=== PATIENT | female | born 1945 | race Caucasian/White ===

== ENCOUNTER 2016-05-28 02:30 | Emergency (ER) | payer MEDICARE, OTHER ==
[~2016-05-28] VITALS: Ht 167.6 cm; Wt 100.0 kg
[~2016-05-28 02:30] MED LIST: ASPI81TA82 PO; CLIN1CAP5 PO; DIOV320T PO; GLIP10TA6 PO; GLIP5 PO; HYDR-2768 PO; LACT12%T TOP; LEVO.15 PO; MUPI2%T TOP; NOVOLOGSS; NYST100024 TOP; TAMS0.4C4 PO; VITA100020 PO; ZOFR8TAB PO
[2016-05-28 02:33] VITALS: BP 230/102; PULSE 101; RESP 18; TEMP 97.8; O2SAT 97
[2016-05-28] MEDS ORDERED: FURO1TAB60 PO (03:40)
[2016-05-28] MEDS ORDERED: DIOV320T PO (03:40)
[2016-05-28] MEDS ORDERED: POTA-243 PO (03:40)
[2016-05-28] MEDS ORDERED: CLON0.1D T-DERMAL (03:40)
[2016-05-28] MEDS ORDERED: LEVO200T4 PO (03:40)
[2016-05-28] MEDS ORDERED: CLOT1CRE TOPICAL (03:40)
[2016-05-28] MEDS ORDERED: TERI14TA PO (03:40)
[2016-05-28] MEDS ORDERED: LEVEMIR SQ (03:40)
[2016-05-28] MEDS ORDERED: FLUC100T2 PO (03:40)
[2016-05-28] MEDS ORDERED: ASPI1TAB69 PO (03:40)
[2016-05-28] MEDS ORDERED: CEPH-460 PO (03:41)
[2016-05-28] MEDS ORDERED: DICL1GEL TOPICAL (03:41)
[2016-05-28] MEDS ORDERED: FLOR250C PO (03:41)
[2016-05-28] MEDS ORDERED: HUMALOG SQ (03:41)
--- NOTE | 2016-05-28 04:03 | PD ---
HPI Chief Complaint: Fall Time Seen by Provider: 03:04 Travel History International Travel<30 days: No Contact w/Intl Traveler<30days: No Traveled to known affect area: No History of Present Illness HPI The patient is a 71 year old female who presents to the [facility] emergency department with a history of reportedly falling while getting out of bed prior to arrival. The patient is a resident at her half-way. The patient was noted to be stuck between the air conditioner and her bed with her wheelchair on top of her. The patient uses a wheelchair for mobility due to a history of cerebrovascular accident affecting the right side. The patient denies any loss of consciousness. The patient denies having any numbness or tingling to her arms or legs. She denies having any new weakness in her arms or legs. The patient reports having low back pain, right elbow pain, right shoulder pain, and right-sided pelvic pain. The patient's blood pressure was noted to be elevated on arrival. According to the patient's medication record the patient is supposed to be on a clonidine patch. The patient was examined and a clonidine patch was able to be found on her person. The patient denies any recent fevers, cough, congestion, headache, neck pain, chest pain, shortness of breath, abdominal pain, vomiting, diarrhea, urinary symptoms, or other new neurologic symptoms. 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 Anemia: Yes High Cholesterol: Yes Chest Pain: Yes Cerebrovascular Accident: Yes (RIGHT SIDED) Diabetes: Yes Patient Takes Glucophage: No Hypertension: Yes Immunizations Current: Yes Thyroid Disease: Yes (HYPOTHYROIDISM) ?: Not Past Surgical History Narrative Surgical The patient's past surgical history is unremarkable. Social History Alcohol Use: No Tobacco Use: No Substance Use: No Allergies-Medications (Allergen,Severity, Reaction): Coded Allergies: No Known Allergies (Unverified , 01/12/16) Reported Meds & Prescriptions Reported Meds & Active Scripts Active Reported Humalog Inj (Insulin Human Lispro) 1,000 Unit/10 Ml Vial 2-12 Units SQ ACHS Max dose at bedtime:( )units; sugars < 70,(0)units; sugars 150-199,(2)units; sugars 200-249,(4)units; sugars 250-299,(7)units; sugars 300-349,(10)units; sugars more than 349,(12)units. Voltaren Topical (Diclofenac Topical) 1% Gel 1 Applic TOPICAL QID Keflex (Cephalexin) 500 Mg Cap 500 Mg PO Q12H Florastor (Saccharomyces Boulardii) 250 Mg Cap 250 Mg PO BID Clotrimazole Topical (Clotrimazole) 1% Cream 1 Applic TOPICAL DAILY Levothyroxine (Levothyroxine Sodium) 200 Mcg Tab 200 Mcg PO DAILY Levemir Inj (Insulin Detemir) 1,000 unit/ 10 ML Vial 35 Units SQ DAILY Do not mix with any other Insulin. Lasix (Furosemide) 40 Mg Tab 40 Mg PO DAILY Klor-Con 10 (Potassium Chloride) 10 Meq Tab 10 Meq PO DAILY Fluconazole 100 Mg Tab 100 Mg PO DAILY Diovan (Valsartan) 320 Mg Tab 320 Mg PO DAILY Clonidine 168 HR Patch (Clonidine HCl) 0.1 Mg/24 Hr Patch 1 Patch T-DERMAL Q7D Aubagio (Teriflunomide) 14 Mg Tab 14 Mg PO DAILY Aspirin 81 Mg Tabdr 81 Mg PO DAILY Review of Systems Except as stated in HPI: all other systems reviewed are Neg General / Constitutional: No: Fever Eyes: No: Visual changes HENT: No: Headaches, Neck Pain Cardiovascular: No: Chest Pain or Discomfort Respiratory: No: Shortness of Breath Gastrointestinal: No: Nausea, Vomiting, Diarrhea, Abdominal Pain Genitourinary: No: Dysuria Musculoskeletal: Positive: Myalgias, Arthralgias, Pain Skin: No Rash Neurologic: Positive: Focal Abnormalities (chronic right-sided weakness related to a prior stroke), No: Weakness, Change in Mentation, Slurred Speech, Sensory Disturbance Psychiatric: No: Depression Endocrine: No: Polydipsia Hematologic/Lymphatic: No: Easy Bruising Physical Exam Narrative General: The patient is a well-developed well-nourished female in no acute distress. Head and Neck exam: Head is normocephalic atraumatic. Eyes: EOMI, pupils are equal round and reactive to light. Nose: Midline septum with pink mucous membranes Mouth: Dentition unremarkable. Moist mucus membranes. Posterior oropharynx is not erythematous. No tonsillar hypertrophy. Uvula midline. Airway patent. Neck: No palpable lymphadenopathy. No nuchal rigidity. No thyromegaly. Cardiovascular: Regular rate and rhythm without murmurs, gallops, or rubs. Lungs: Clear to auscultation bilaterally. No wheezes, rhonchi, or rales. Abdomen: Soft, without tenderness to palpation in all 4 quadrants of the abdomen. No guarding, rebound, or rigidity. Normal bowel sounds are audible. Extremities: No clubbing, cyanosis, or edema. 2+ pulses in all 4 extremities. The patient reports tenderness on palpation of the anterior aspect of the left knee. The patient reports tenderness on palpation along the posterior aspect of the right elbow and proximal aspect of the right humerus. There is no palpable deformity , step-off or crepitus of her extremities. There is no ligament laxity noted. Back: No spinous process tenderness to palpation. No costovertebral angle tenderness to palpation. The patient reports tenderness on palpation along the left side of the low back along the SI joint and along the lumbar paraspinal muscles on the left side. There is no ecchymosis or erythema. Neurologic Exam: Cranial nerves 2-12 were intact on exam. Strength is 4/5 in the right upper and right lower extremity with a prior history of stroke affecting this area. No sensory deficits noted. Skin: The patient has a superficial appearing skin tear along the posterior aspect of the right upper elbow. Data Data Last Documented VS Vital Signs Date Time Temp Pulse Resp B/P Pulse Ox O2 Delivery O2 Flow Rate FiO2 05/28/16 02:33 97.8 101 18 230/102 97 Orders Elbow, Complete (4 Vws) (05/28/16 03:03) Ct Brain W/O Iv Contrast(Rout) (05/28/16 03:03) Ct Cerv Spine W/O Contrast (05/28/16 03:03) Chest, Single Ap (05/28/16 03:50) Pelvis, Ap Only (Routine) (05/28/16 03:50) Humerus (Min 2vws) (05/28/16 03:50) Knee, Complete (4vws) (05/28/16 03:50) Complete Blood Count With Diff (05/28/16 04:19) Basic Metabolic Panel (Bmp) (05/28/16 04:19) Prothrombin Time / Inr (Pt) (05/28/16 04:19) Act Partial Throm Time (Ptt) (05/28/16 04:19) Ct Lumb Spine W/O Contrast (05/28/16 ) Clonidine (Catapres) (05/28/16 04:30) Labs Laboratory Tests Test 05/28/16 04:20 White Blood Count 11.1 TH/MM3 Red Blood Count 5.49 MIL/MM3 Hemoglobin 13.1 GM/DL Hematocrit 40.6 % Mean Corpuscular Volume 73.9 FL Mean Corpuscular Hemoglobin 23.8 PG Mean Corpuscular Hemoglobin 32.2 % Concent Red Cell Distribution Width 16.1 % Platelet Count 171 TH/MM3 Mean Platelet Volume 8.8 FL Neutrophils (%) (Auto) 68.9 % Lymphocytes (%) (Auto) 20.0 % Monocytes (%) (Auto) 9.6 % Eosinophils (%) (Auto) 1.3 % Basophils (%) (Auto) 0.2 % Neutrophils # (Auto) 7.6 TH/MM3 Lymphocytes # (Auto) 2.2 TH/MM3 Monocytes # (Auto) 1.1 TH/MM3 Eosinophils # (Auto) 0.1 TH/MM3 Basophils # (Auto) 0.0 TH/MM3 CBC Comment AUTO DIFF Prothrombin Time 10.7 SEC Prothromb Time International 1.0 RATIO Ratio Activated Partial 23.8 SEC Thromboplast Time Sodium Level 139 MEQ/L Potassium Level 3.9 MEQ/L Chloride Level 102 MEQ/L Carbon Dioxide Level 31.4 MEQ/L Anion Gap 6 MEQ/L Blood Urea Nitrogen 15 MG/DL Creatinine 0.65 MG/DL Estimat Glomerular Filtration 90 ML/MIN Rate Random Glucose 277 MG/DL Calcium Level 9.0 MG/DL [facility] Medical Decision Making Medical Screen Exam Complete: Yes Emergency Medical Condition: Yes Medical Record Reviewed: Yes Interpretation(s) Last Impressions Pelvis X-Ray 05/28/16349 Signed Impressions: Service Date/Time: Saturday, May 28, 2016 04:42 - CONCLUSION: 1. No acute findings. Sandeep Amaro MD Knee X-Ray 05/28/16349 Signed Impressions: Service Date/Time: Saturday, May 28, 2016 04:43 - CONCLUSION: 1. Advanced osteoarthritis. No acute bony abnormality. Sandeep Amaro MD Humerus X-Ray 05/28/16349 Signed Impressions: Service Date/Time: Saturday, May 28, 2016 04:49 - CONCLUSION: Unremarkable examination of the right humerus. Sandeep Amaro MD Chest X-Ray 05/28/16 0350 Signed Impressions: Service Date/Time: Saturday, May 28, 2016 04:47 - CONCLUSION: 1. No active disease. Left shoulder joint replacement. Sandeep Amaro MD Head CT 05/28/16302 Signed Impressions: Service Date/Time: Saturday, May 28, 2016 03:24 - CONCLUSION: 1. No acute findings. White matter ischemic changes. Sandeep Amaro MD Elbow X-Ray 05/28/16302 Signed Impressions: Service Date/Time: Saturday, May 28, 2016 03:15 - CONCLUSION: 1. No acute findings. Sandeep Amaro MD Cervical Spine CT 05/28/16302 Signed Impressions: Service Date/Time: Saturday, May 28, 2016 03:24 - CONCLUSION: 1. No acute findings. Moderate to severe degenerative disc disease. Sandeep Amaro MD Lumbar Spine CT 05/28/16 0000 Signed Impressions: Service Date/Time: Saturday, May 28, 2016 04:31 - CONCLUSION: 1. No acute fracture identified. No spondylolisthesis. Mild superior endplate depression or Schmorl's node at L4 which appears chronic. Sandeep Amaro MD Laboratory Tests Test 05/28/16 04:20 White Blood Count 11.1 TH/MM3 (4.0-11.0) Red Blood Count 5.49 MIL/MM3 (4.00-5.30) Mean Corpuscular Volume 73.9 FL (80.0-100.0) Mean Corpuscular Hemoglobin 23.8 PG (27.0-34.0) Monocytes (%) (Auto) 9.6 % (0.0-8.0) Monocytes # (Auto) 1.1 TH/MM3 (0-0.9) Activated Partial 23.8 SEC Thromboplast Time (24.3-30.1) Random Glucose 277 MG/DL (74-106) Differential Diagnosis Intracranial trauma, versus cervical spine trauma, versus lumbar spine trauma, versus intrathoracic trauma, versus right humerus fracture, versus right elbow fracture, versus left knee fracture, versus contusions and abrasions Narrative Course During the course of the patients emergency department visit, the patients history, examination, and differential diagnosis were reviewed with the patient. The patient had IV access obtained and blood work sent for analysis. The patient had an incidental finding of an elevated blood pressure. The patient had no evidence of her clonidine patch being on that is written in her medication record from the half-way. The patient was given clonidine 0.2 mg by mouth 1. A chest x-ray, pelvic x-ray, right humerus, right elbow, left knee x-ray was ordered. CT scan of the head, neck, lumbar spine was ordered. The patients laboratory studies were reviewed and remarkable for a CBC that shows a white count 11.1, hemoglobin 13.1, platelets 171 with 9.6 monocytes, BMP is unremarkable except for a glucose of 277 Radiology studies were reviewed and remarkable for a CT scan of the brain that shows no acute abnormality, CT scan of the C-spine that shows degenerative changes, CT scan of the lumbar spine that shows some degenerative changes, no other acute abnormality. Chest x-ray and pelvic x-ray showed no acute abnormality. Humerus x-ray showed no acute abnormality. Left knee x-ray reveals osteoarthritic changes, no other acute abnormality. Elbow x-ray shows no acute bony abnormality. The patient's results were discussed with her and her family. The patient will be discharged back to her half-way. The patient is resting comfortably and feels better, is alert and in no distress. The patients results and examination findings were discussed with the patient and the patient's family. The repeat examination is unremarkable and benign. The history, exam, diagnostic testing, and current condition do not suggest any significant pathology to warrant further testing, continued ED treatment, admission, or surgical evaluation at this point. The vital signs have been stable. The patient does not have uncontrollable pain, intractable vomiting, or other significant symptoms. The patient's condition is stable and appropriate for discharge. The patient will pursue further outpatient evaluation with a primary care physician or other designated or consulting physician as indicated in the discharge instructions. The patient expressed understanding and was agreeable with this plan. Diagnosis Primary Impression: Fall Qualified Code: W19.XXXA - Fall, initial encounter Additional Impression: Skin tear of elbow without complication Qualified Code: S51.011A - Skin tear of elbow without complication, right, initial encounter Referrals: Primary Care Physician Patient Instructions: Contusion in Adults (ED), General Instructions, Skin Tear (ED) Additional Instructions: The patient is instructed regarding the importance of restarting the clonidine patch that she was previously on. Med/Other Pt SpecificInfo: No Change to Meds Disposition: 01 DISCHARGE HOME Condition: Stable Tamara Abreu MD May 28, 2016 04:03
--- NOTE | 2016-05-28 04:06 | RADRPT ---
EXAM DATE/TIME: 05/28/2016 03:24 [facility] COMPARISON: No previous studies available for comparison. INDICATIONS : Trauma, fall. Altered mental status. RADIATION DOSE: 56.35 CTDIvol (mGy) MEDICAL HISTORY : Multiple sclerosis. Hypertension. Diabetes mellitus type 2.Coronary artery disease. CVA. SURGICAL HISTORY : Coronary stent. ENCOUNTER: Initial ACUITY: 1 day PAIN SCALE: 0/10 LOCATION: cranial TECHNIQUE: Multiple contiguous axial images were obtained of the head. Using automated exposure control and adj ustment of the mA and/or kV according to patient size, radiation dose was kept as low as reasonably a chievable to obtain optimal diagnostic quality images. FINDINGS: No acute intracranial hemorrhage, mass or midline shift. No hydrocephalus. There is extensive white m atter low attenuation most characteristic of chronic ischemic changes with probable remote infarct de ep white matter on the left. No acute infarct identified. CONCLUSION: 1. No acute findings. White matter ischemic changes. Sandeep Amaro MD on May 28, 2016 at 4:03 Board Certified Radiologist. This report was verified electronically.
--- NOTE | 2016-05-28 04:14 | RADRPT ---
EXAM DATE/TIME: 05/28/2016 03:15 [facility] COMPARISON: No previous studies available for comparison. INDICATIONS : Possible right elbow injury. MEDICAL HISTORY : Diabetes mellitus type II. SURGICAL HISTORY : None. ENCOUNTER: Initial ACUITY: 1 day PAIN SCORE: 1/10 LOCATION: Right Elbow FINDINGS: Multiple view examination of the right elbow demonstrates no acute fracture or dislocation. Mild oste oarthritis at the elbow joint. CONCLUSION: 1. No acute findings. Sandeep Amaro MD on May 28, 2016 at 4:11 Board Certified Radiologist. This report was verified electronically.
--- NOTE | 2016-05-28 04:20 | RADRPT ---
EXAM DATE/TIME: 05/28/2016 03:24 [facility] COMPARISON: No previous studies available for comparison. INDICATIONS : Trauma, fall. RADIATION DOSE: 37.28 CTDIvol (mGy) MEDICAL HISTORY : Multple sclerosis. Hypertension. Diabetes mellitus type 2.CVA. Coronary artery disease. SURGICAL HISTORY : Coronary stent. ENCOUNTER: Initial ACUITY: 1 day PAIN SCALE: 1/10 LOCATION: Right neck TECHNIQUE: Volumetric scanning of the cervical spine was performed. Multiplanar reconstructions in the sagittal, coronal and oblique axial planes were performed. Using automated exposure control and adjustment o f the mA and/or kV according to patient size, radiation dose was kept as low as reasonably achievable to obtain optimal diagnostic quality images. FINDINGS: There is moderate to severe degenerative disc disease in lower cervical spine with mild AP canal sten osis at C5-6-7. No fracture or spondylolisthesis. No prevertebral soft tissue swelling. CONCLUSION: 1. No acute findings. Moderate to severe degenerative disc disease. Sandeep Amaro MD on May 28, 2016 at 4:14 Board Certified Radiologist. This report was verified electronically.
[2016-05-28] MEDS ORDERED: cloNIDine HCL 0.2 MG TAB PO ONE (04:30)
[2016-05-28 04:32] LABS: AUTOMATED NEUTROPHIL # 7.6 TH/MM3 (1.8-7.7); BASOPHIL % 0.2 % (0.0-2.0); EOSINOPHIL # 0.1 TH/MM3 (0-0.4); EOSINOPHIL % 1.3 % (0.0-4.0); HEMATOCRIT 40.6 % (35.0-46.0); LYMPHOCYTE # 2.2 TH/MM3 (1.0-4.8); MEAN CELL VOLUME 73.9 FL (80.0-100.0); MEAN CORPUSCULAR HEMOGLOBIN 23.8 PG (27.0-34.0); MEAN CORPUSCULAR HGB CONC 32.2 % (32.0-36.0); MONO % 9.6 % (0.0-8.0); NEUT % 68.9 % (16.0-70.0); PLATELET COUNT 171 TH/MM3 (150-450); RED BLOOD COUNT 5.49 MIL/MM3 (4.00-5.30); RED CELL DISTRIBUTION WIDTH 16.1 % (11.6-17.2); WHITE BLOOD COUNT 11.1 TH/MM3 (4.0-11.0)
[2016-05-28 04:35] LABS: HEMO FLAGS AUTO DIFF
[2016-05-28 04:51] LABS: APTT (PATIENT) 23.8 SEC (24.3-30.1); PROTHROMBIN TIME - PATIENT 10.7 SEC (9.8-11.6)
[2016-05-28 04:53] LABS: BICARBONATE 31.4 MEQ/L (21.0-32.0)
[2016-05-28 04:54] LABS: POTASSIUM 3.9 MEQ/L (3.5-5.1)
--- NOTE | 2016-05-28 05:23 | RADRPT ---
EXAM DATE/TIME: 05/28/2016 04:31 [facility] COMPARISON: No previous studies available for comparison. INDICATIONS : Trauma, fall. RADIATION DOSE: 48.35 CTDIvol (mGy) MEDICAL HISTORY : Diabetes mellitus type 2. Hypertension. Multiple sclerosis.CVA. Coronary artery disease. SURGICAL HISTORY : Coronary stent. ENCOUNTER: Initial ACUITY: 1 day PAIN SCALE: 7/10 LOCATION: lumbar TECHNIQUE: Volumetric scanning of the lumbar spine was performed. Multiplanar reconstructions in the sagittal, coronal and oblique axial planes were performed. Using automated exposure control and adjustment of the mA and/or kV according to patient size, radiation dose was kept as low as reasonably achievable t o obtain optimal diagnostic quality images. FINDINGS: There is severe degenerative disc disease in the lumbar spine with moderate facet arthropathy. No acu te fracture. Mild superior endplate depression of L4 which appears chronic. There is a mild to modera te central canal stenosis at L3-4 and mild central canal stenosis at L4-5. CONCLUSION: 1. No acute fracture identified. No spondylolisthesis. Mild superior endplate depression or Schmorl's node at L4 which appears chronic. Sandeep Amaro MD on May 28, 2016 at 5:16 Board Certified Radiologist. This report was verified electronically.
--- NOTE | 2016-05-28 05:23 | RADRPT ---
EXAM DATE/TIME: 05/28/2016 04:47 [facility] COMPARISON: No previous studies available for comparison. INDICATIONS : Shortness of breath. MEDICAL HISTORY : Hypertension. Diabetes mellitus type II. Multiple sclerosis, CVA. SURGICAL HISTORY : Coronary artery stent. ENCOUNTER: Initial ACUITY: 1 day PAIN SCORE: 0/10 LOCATION: Bilateral chest FINDINGS: A single view of the chest demonstrates the lungs to be symmetrically aerated without evidence of mas s, infiltrate or effusion. The cardiomediastinal contours are unremarkable. Osseous structures are intact except left shoulder joint replacement. CONCLUSION: 1. No active disease. Left shoulder joint replacement. Sandeep Amaro MD on May 28, 2016 at 5:21 Board Certified Radiologist. This report was verified electronically.
--- NOTE | 2016-05-28 05:25 | RADRPT ---
EXAM DATE/TIME: 05/28/2016 04:42 [facility] COMPARISON: No previous studies available for comparison. INDICATIONS : Per daughter patient fell, hip pain. MEDICAL HISTORY : None. SURGICAL HISTORY : None. ENCOUNTER: Initial ACUITY: 1 day PAIN SCORE: 7/10 LOCATION: Bilateral Pelvis FINDINGS: A single frontal view of the pelvis demonstrates no evidence of fracture. The bony pelvic ring is in tact. Bony mineralization is normal. The soft tissues are intact. CONCLUSION: 1. No acute findings. Sandeep Amaro MD on May 28, 2016 at 5:22 Board Certified Radiologist. This report was verified electronically.
--- NOTE | 2016-05-28 05:26 | RADRPT ---
EXAM DATE/TIME: 05/28/2016 04:43 [facility] COMPARISON: No previous studies available for comparison. INDICATIONS : Per daughter, patient fell left knee pain. MEDICAL HISTORY : None. SURGICAL HISTORY : None. ENCOUNTER: Initial ACUITY: 1 day PAIN SCORE: 7/10 LOCATION: Left Knee FINDINGS: Four view examination of the left knee demonstrates no evidence of fracture or dislocation. Advanced osteoarthritis present at the left knee with mild medial subluxation. No significant joint effusion. Accessory ossicle superolateral patella CONCLUSION: 1. Advanced osteoarthritis. No acute bony abnormality. Sandeep Amaro MD on May 28, 2016 at 5:23 Board Certified Radiologist. This report was verified electronically.
--- NOTE | 2016-05-28 05:27 | RADRPT ---
EXAM DATE/TIME: 05/28/2016 04:49 [facility] COMPARISON: No previous studies available for comparison. INDICATIONS : Per daughter, patient fell tonight right arm pain. MEDICAL HISTORY : None. SURGICAL HISTORY : None. ENCOUNTER: Initial ACUITY: 1 day PAIN SCORE: 7/10 LOCATION: Right Humerus FINDINGS: Two view examination of the right humerus demonstrates no evidence of fracture or dislocation. Bony mineralization is normal. The soft tissue structures are intact. CONCLUSION: Unremarkable examination of the right humerus. Sandeep Amaro MD on May 28, 2016 at 5:25 Board Certified Radiologist. This report was verified electronically.
[2016-05-28 05:45] LABS: SCAN/DIFF AUTO DIFF CONFIRMED
[2016-05-28 05:48] VITALS: BP 229/129
[2016-05-28 06:30] VITALS: BP 164/72; PULSE 90; RESP 18; O2SAT 99
[2016-05-28 06:58] VITALS: BP 153/66; PULSE 95; RESP 18; O2SAT 96
[2016-05-28 09:17] VITALS: BP 126/75; TEMP 98.3
== END 2016-05-28 09:00 | disposition home or self-care (01) ==
LOC: NEPE 02:30
DX: S51.011A Laceration without foreign body of right elbow, initial encounter (principal); M25.521 Pain in right elbow; M25.511 Pain in right shoulder; R53.1 Weakness; I10 Essential (primary) hypertension; E78.00 Pure hypercholesterolemia, unspecified; E11.9 Type 2 diabetes mellitus without complications; W06.XXXA Fall from bed, initial encounter; Y92.122 Bedroom in nursing home as the place of occurrence of the external cause; Z91.81 History of falling
CPT/HCPCS: 70450; 71010; 72125; 72131; 72170; 73060; 73080; 73564; 80048; 85025; 85610; 85730

== ENCOUNTER 2016-05-31 09:09 | Emergency (ER) | payer MEDICARE, OTHER ==
[~2016-05-31] VITALS: Ht 162.6 cm; Wt 100.0 kg
[~2016-05-31 09:09] MED LIST changes: +ASPI1TAB69 PO; -ASPI81TA82 PO; +CEPH-460 PO; -CLIN1CAP5 PO; +CLON0.1D T-DERMAL; +CLOT1CRE TOPICAL; +DICL1GEL TOPICAL; +FLOR250C PO; +FLUC100T2 PO; +FURO1TAB60 PO; -GLIP10TA6 PO; -GLIP5 PO; +HUMALOG SQ; -HYDR-2768 PO; -LACT12%T TOP; +LEVEMIR SQ; -LEVO.15 PO; +LEVO200T4 PO; -MUPI2%T TOP; -NOVOLOGSS; -NYST100024 TOP; +POTA-243 PO; -TAMS0.4C4 PO; +TERI14TA PO; -VITA100020 PO; -ZOFR8TAB PO
[2016-05-31 09:23] VITALS: BP 231/102; PULSE 97; RESP 20; TEMP 97.8; O2SAT 100
--- NOTE | 2016-05-31 09:30 | PD ---
HPI Chief Complaint: Patient refusing to take her meds Time Seen by Provider: 09:19 Travel History International Travel<30 days: No Contact w/Intl Traveler<30days: No History of Present Illness HPI Patient is a 71-year-old female with history of hypertension, diabetes, hypothyroid, history of CVA with residual right-sided weakness, presents to emergency room from [facility] for evaluation of altered mental status. As per [facility], patient refuses to take her medications this morning. Patient was sent to the emergency room for evaluation of possible altered mental status. As per [facility], patient did fall from her bed a few days ago, patient was seen in the emergency room on May 28, 2016 after this fall, she did have CAT scans of her head, neck, L-spine, x-rays of her pelvis, knee, humerus, chest, elbow at that time which were all benign. Patient denies any new falls since May 28, 05/08/16. Patient is alert and oriented 3, patient with no complaints while in the emergency room. Patient reports that she refused to take her medications this morning as she did not feel like it. Patient reports that she has the right to refuse her medications if she wants to and does not know why she was sent to the ER. Reports that if they are going to make her come to the ER for evaluation when she refuses her mediations, then she will "just take my medications." Patient denies si/hi. Patient with no c/o. PFSH Past Medical History Anemia: Yes High Cholesterol: Yes Chest Pain: Yes Cerebrovascular Accident: Yes (RIGHT SIDED) Diabetes: Yes Hypertension: Yes Immunizations Current: Yes Thyroid Disease: Yes (HYPOTHYROIDISM) Social History Alcohol Use: No Tobacco Use: No Substance Use: No Allergies-Medications (Allergen,Severity, Reaction): Coded Allergies: No Known Allergies (Unverified , 01/12/16) Reported Meds & Prescriptions Reported Meds & Active Scripts Active Reported Humalog Inj (Insulin Human Lispro) 1,000 Unit/10 Ml Vial 2-12 Units SQ ACHS Max dose at bedtime:( )units; sugars < 70,(0)units; sugars 150-199,(2)units; sugars 200-249,(4)units; sugars 250-299,(7)units; sugars 300-349,(10)units; sugars more than 349,(12)units. Voltaren Topical (Diclofenac Topical) 1% Gel 1 Applic TOPICAL QID Keflex (Cephalexin) 500 Mg Cap 500 Mg PO Q12H Florastor (Saccharomyces Boulardii) 250 Mg Cap 250 Mg PO BID Clotrimazole Topical (Clotrimazole) 1% Cream 1 Applic TOPICAL DAILY Levothyroxine (Levothyroxine Sodium) 200 Mcg Tab 200 Mcg PO DAILY Levemir Inj (Insulin Detemir) 1,000 unit/ 10 ML Vial 35 Units SQ DAILY Do not mix with any other Insulin. Lasix (Furosemide) 40 Mg Tab 40 Mg PO DAILY Klor-Con 10 (Potassium Chloride) 10 Meq Tab 10 Meq PO DAILY Fluconazole 100 Mg Tab 100 Mg PO DAILY Diovan (Valsartan) 320 Mg Tab 320 Mg PO DAILY Clonidine 168 HR Patch (Clonidine HCl) 0.1 Mg/24 Hr Patch 1 Patch T-DERMAL Q7D Aubagio (Teriflunomide) 14 Mg Tab 14 Mg PO DAILY Aspirin 81 Mg Tabdr 81 Mg PO DAILY Review of Systems General / Constitutional: No: Fever Eyes: No: Visual changes HENT: No: Headaches Cardiovascular: No: Chest Pain or Discomfort Respiratory: No: Shortness of Breath Gastrointestinal: No: Abdominal Pain Genitourinary: No: Dysuria Musculoskeletal: No: Pain Skin: No Rash Neurologic: No: Weakness Psychiatric: No: Depression Endocrine: No: Polydipsia Hematologic/Lymphatic: No: Easy Bruising Physical Exam Narrative GENERAL: NAD, Alert and oriented x 3 SKIN: Warm and dry. HEAD: Atraumatic. Normocephalic. EYES: Pupils equal and round. No scleral icterus. No injection or drainage. ENT: No nasal bleeding or discharge. Mucous membranes pink and moist. NECK: Trachea midline. No JVD. CARDIOVASCULAR: Regular rate and rhythm. No murmur appreciated. RESPIRATORY: No accessory muscle use. Clear to auscultation. Breath sounds equal bilaterally. GASTROINTESTINAL: Abdomen soft, non-tender, nondistended. Hepatic and splenic margins not palpable. MUSCULOSKELETAL: No obvious deformities. No clubbing. No cyanosis. No edema. NEUROLOGICAL: Awake and alert. Patient with right sided weakness which is at baseline from her from prior CVA PSYCHIATRIC: Appropriate mood and affect; insight and judgment normal. Denies suicidal or homicidal ideations. Data Data Last Documented VS Vital Signs Date Time Temp Pulse Resp B/P Pulse Ox O2 Delivery O2 Flow Rate FiO2 05/31/16 09:23 97.8 97 20 231/102 100 Orders Basic Metabolic Panel (Bmp) (05/31/16 09:22) Complete Blood Count With Diff (05/31/16 09:22) Urinalysis - C+S If Indicated (05/31/16 09:22) Bedside Glucose ZELDA.AC&HS (05/31/16 09:22) Levothyroxine (Synthroid) (05/31/16 10:30) Furosemide (Lasix) (05/31/16 10:30) Potassium Chloride (Kcl) (05/31/16 10:30) Valsartan (Diovan) (05/31/16 10:30) Aspirin Chew (Aspirin Chew) (05/31/16 10:30) Urine Culture (05/31/16 09:50) Insulin Human Regular Inj (Novolin R Inj (05/31/16 11:45) Labs Laboratory Tests Test 05/31/16 05/31/16 05/31/16 09:50 10:00 11:55 Urine Color YELLOW Urine Turbidity CLEAR Urine pH 5.5 Urine Specific [place] 1.024 Urine Protein TRACE mg/dL Urine Glucose (UA) 1000 mg/dL Urine Ketones TRACE mg/dL Urine Occult Blood NEG Urine Nitrite NEG Urine Bilirubin NEG Urine Urobilinogen LESS THAN 2.0 MG/DL Urine Leukocyte Esterase NEG Urine RBC 1 /hpf Urine WBC 1 /hpf Urine Squamous Epithelial 2 /hpf Cells Urine Bacteria RARE /hpf Urine Hyaline Casts 1 /lpf Urine Mucus FEW /lpf Microscopic Urinalysis Comment CATH-CULTURE IND White Blood Count 8.3 TH/MM3 Red Blood Count 5.58 MIL/MM3 Hemoglobin 13.9 GM/DL Hematocrit 41.3 % Mean Corpuscular Volume 73.9 FL Mean Corpuscular Hemoglobin 24.8 PG Mean Corpuscular Hemoglobin 33.6 % Concent Red Cell Distribution Width 16.4 % Platelet Count 165 TH/MM3 Mean Platelet Volume 9.3 FL Neutrophils (%) (Auto) 68.9 % Lymphocytes (%) (Auto) 21.3 % Monocytes (%) (Auto) 7.8 % Eosinophils (%) (Auto) 1.5 % Basophils (%) (Auto) 0.5 % Neutrophils # (Auto) 5.7 TH/MM3 Lymphocytes # (Auto) 1.8 TH/MM3 Monocytes # (Auto) 0.7 TH/MM3 Eosinophils # (Auto) 0.1 TH/MM3 Basophils # (Auto) 0.0 TH/MM3 CBC Comment AUTO DIFF Differential Comment AUTO DIFF CONFIRMED Sodium Level 141 MEQ/L Potassium Level 4.0 MEQ/L Chloride Level 101 MEQ/L Carbon Dioxide Level 30.2 MEQ/L Anion Gap 10 MEQ/L Blood Urea Nitrogen 19 MG/DL Creatinine 0.61 MG/DL Estimat Glomerular Filtration 97 ML/MIN Rate Random Glucose 242 MG/DL Calcium Level 9.0 MG/DL MDM Medical Decision Making Medical Screen Exam Complete: Yes Emergency Medical Condition: Yes Interpretation(s) Vital Signs Date Time Temp Pulse Resp B/P Pulse Ox O2 Delivery O2 Flow Rate FiO2 05/31/16 09:23 97.8 97 20 231/102 100 Differential Diagnosis Medication noncompliance, hyperglycemia, hypertension Narrative Course Patient is a 71-year-old female with history of hypertension, diabetes, CVA with right-sided deficits at baseline, presents to emergency room from [facility] for evaluation of altered mental status. As per patient , she is alert and oriented 3, reports that she refuses to take her medications this morning as she did not feel like taking her medications. Patient reports that sometimes the nurses at the [facility] "give her problems," so she "gives them problems right back." Patient was sent to the emergency room for evaluation for possible altered mental status. Patient reports that she knew that she was going to be sent to the emergency room for evaluation for not taking her medications, she would've just taken her medications. Patient reports that she feels that it is her right not to take her medications if she does not want to. Patient denies suicidal or homicidal ideations. Patient with no complaints at this time. Patient now agreeable to taking her medications. Plan to obtain basic labs, will administer a.m. medications. Patient with no complaints in the emergency room, patient refusing to let me obtain a blood pressure at this time. I did review case with and pain at [facility]. She is aware of patient's blood pressure and patient's noncompliant with medications. Patient will be discharged home with instructions to take her medications. Patient's daughter at bedside, understands patient noncompliance of medications. She will try to encourage patient to take her medications. Diagnosis Primary Impression: Noncompliance with medications Additional Impression: Hyperglycemia Patient Instructions: General Instructions Additional Instructions: Please take all medications as prescribed Return to the emergency room as needed Disposition: 01 DISCHARGE HOME Condition: Stable Aura Stanford DO May 31, 2016 09:30
[2016-05-31 10:16] LABS: AUTOMATED NEUTROPHIL # 5.7 TH/MM3 (1.8-7.7); BASOPHIL % 0.5 % (0.0-2.0); EOSINOPHIL # 0.1 TH/MM3 (0-0.4); EOSINOPHIL % 1.5 % (0.0-4.0); HEMATOCRIT 41.3 % (35.0-46.0); LYMPH % 21.3 % (9.0-44.0); LYMPHOCYTE # 1.8 TH/MM3 (1.0-4.8); MEAN CELL VOLUME 73.9 FL (80.0-100.0); MEAN CORPUSCULAR HEMOGLOBIN 24.8 PG (27.0-34.0); MEAN CORPUSCULAR HGB CONC 33.6 % (32.0-36.0); MONO % 7.8 % (0.0-8.0); NEUT % 68.9 % (16.0-70.0); PLATELET COUNT 165 TH/MM3 (150-450); RED BLOOD COUNT 5.58 MIL/MM3 (4.00-5.30); RED CELL DISTRIBUTION WIDTH 16.4 % (11.6-17.2); WHITE BLOOD COUNT 8.3 TH/MM3 (4.0-11.0)
[2016-05-31 10:20] LABS: HEMO FLAGS AUTO DIFF
[2016-05-31 10:28] LABS: BACTERIA, URINE RARE /hpf; BLOOD, URINE NEG (NEG); COMMENT (UR) CATH-CULTURE IND; CULTURE IF INDICATED CATH CULTURE IND; GLUCOSE,URINE 1000 mg/dL (NEG); HYALINE CAST, URINE 1 /lpf (RARE); KETONE, URINE TRACE mg/dL (NEG); MUCUS URINE FEW /lpf (OCC); NITRITE,URINE NEG (NEG); PH, URINE 5.5 (5.0-8.5); SQUAMOUS EPITHELIAL CELL URINE 2 /hpf (0-5); URINE COLOR YELLOW (YELLW/STRAW)
[2016-05-31] MEDS ORDERED: ASPIRIN 81 MG CHEW TAB CHEW ONE (10:30)
[2016-05-31] MEDS ORDERED: FUROSEMIDE 40 MG TAB PO ONE (10:30)
[2016-05-31] MEDS ORDERED: POTASSIUM CHLORIDE 10 MEQ CONTROLLED RELEASE TAB PO ONE (10:30)
[2016-05-31] MEDS ORDERED: VALSARTAN 160 MG TAB PO ONE (10:30)
[2016-05-31] MEDS ORDERED: LEVOTHYROXINE SODIUM 200 MCG TAB PO ONE (10:30)
[2016-05-31 10:58] LABS: SCAN/DIFF AUTO DIFF CONFIRMED
[2016-05-31] MEDS ORDERED: INSULIN HUMAN REGULAR 1,000 UNITS/10 ML VIAL SQ ONE (11:45)
[2016-05-31 12:51] LABS: BICARBONATE 30.2 MEQ/L (21.0-32.0)
== END 2016-06-01 01:07 | disposition home or self-care (01) ==
LOC: NEPC 09:09 → NETRI 06-01 01:07
DX: Z91.14 Patient's other noncompliance with medication regimen (principal); E11.65 Type 2 diabetes mellitus with hyperglycemia; E78.00 Pure hypercholesterolemia, unspecified; I10 Essential (primary) hypertension; D64.9 Anemia, unspecified; E03.9 Hypothyroidism, unspecified
CPT/HCPCS: 80048; 81001; 85025; 87086; 96372; 99285; J1815

== ENCOUNTER 2016-10-10 11:09 | Inpatient (IN) | payer MEDICARE, BC, OTHER ==
[~2016-10-10] VITALS: Ht 167.6 cm; Wt 71.2 kg
[2016-10-10 11:23] VITALS: BP 179/94; PULSE 99; RESP 20; TEMP 98.7; O2SAT 97
--- NOTE | 2016-10-10 12:31 | PD ---
HPI Chief Complaint: Altered Mental Status Time Seen by Provider: 12:30 (Stephanie Sadler) Travel History International Travel<30 days: No Contact w/Intl Traveler<30days: No Traveled to known affect area: No (Stephanie Sadler) History of Present Illness HPI 71-year-old female with history of MS, CAD, hypertension, diabetes, CVA with right sided deficit presents to the emergency department from [facility] for evaluation of altered mental status. Per Eduardo at the facility, patient has been obtunded all morning. The staff states she did not even wake up after she was given a shower. They contacted the daughter and [facility] and sent the patient here for evaluation. Patient is arousable. A poor historian. Reports "pain all over." The daughter states she is much different than her typical self. Dating she appears more tired and ill. Patient does have indwelling Aguilar catheter with minimal output. Nothing else to report at this time. 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, (heel) 10/13/16 Reported Meds & Prescriptions Reported Meds & Active Scripts Active Reported Ondansetron Inj (Ondansetron HCl) 4 Mg/2 Ml Inj 8 Mg IM DAILY PRN Glucose Gel (Dextrose) 40 % Gel 1 Tube PO ONCE PRN Glucagon Emergency Inj Kit (Glucagon (Rdna) Inj Kit) 1 Mg Kit 1 Mg IM ONCE PRN Duoneb (Ipratropium-Albuterol Neb) 0.5-2.5 Mg/3 Ml Neb 3 Ml NEB Q6HR PRN Ativan (Lorazepam) 0.5 Mg Tab 0.5 Mg PO Q8H PRN [Abh Gel] 1 Applic T-DERMAL Q4HR PRN Rotate site with each application Nystatin-Triamcinolone 100,000-0.1 Unit/Gm Cream 1 Applic TOPICAL TID Apply to rash on neck until resolved Humalog Inj (Insulin Human Lispro) 1,000 Unit/10 Ml Vial 4 Units SQ BID Twice a day before breakfast and dinner Vitamin D3 (Cholecalciferol) 50,000 Unit Cap 50,000 Units PO Q7D Remeron (Mirtazapine) 15 Mg Tab 15 Mg PO DAILY Metoprolol Tartrate 50 Mg Tab 50 Mg PO DAILY Levemir Flextouch Pen Inj (Insulin Detemir) 300 unit/3 ML Pen 50 Units SQ DAILY Levothyroxine (Levothyroxine Sodium) 175 Mcg Tab 175 Mcg PO DAILY Levemir Flextouch Pen Inj (Insulin Detemir) 300 unit/3 ML Pen 20 Units SQ HS Aspirin Adult Low Strength (Aspirin) 81 Mg Tabdr 81 Mg PO DAILY Humalog Inj (Insulin Human Lispro) 1,000 Unit/10 Ml Vial 6 Units SQ DAILY Lasix (Furosemide) 40 Mg Tab 40 Mg PO DAILY Klor-Con 10 (Potassium Chloride) 10 Meq Tab 10 Meq PO DAILY Diovan (Valsartan) 320 Mg Tab 320 Mg PO DAILY Clonidine 168 HR Patch (Clonidine HCl) 0.1 Mg/24 Hr Patch 1 Patch T-DERMAL Q7D Aubagio (Teriflunomide) 14 Mg Tab 14 Mg PO DAILY (Nena Dumont MD) Review of Systems Except as stated in HPI: all other systems reviewed are Neg (Stephanie Sadler ) Physical Exam Narrative GENERAL: Chronically ill elderly female patient, lying on the bed, lethargic, arousable SKIN: Focused skin assessment warm/dry. Erythema and crusting around the chin extending to the left neck. Patient's entire buttock is excoriated with a stage II pressure ulcer of the sacrum measuring 3 cm in diameter. HEAD: Atraumatic. Normocephalic. EYES: Pupils equal and round. No scleral icterus. No injection or drainage. ENT: No nasal bleeding or discharge. Mucous membranes pink and moist. NECK: Trachea midline. No JVD. CARDIOVASCULAR: Elevated rate and rhythm. 2/6 murmur appreciated. RESPIRATORY: No accessory muscle use. Diminished to auscultation. Breath sounds equal bilaterally. GASTROINTESTINAL: Abdomen soft, non-tender, nondistended. Hepatic and splenic margins not palpable. MUSCULOSKELETAL: No obvious deformities. No clubbing. No cyanosis. No edema. NEUROLOGICAL: Lethargic to awake. Unable to assess cranial nerves. Right sided rigidity. (Stephanie Sadler) Data Data Orders Electrocardiogram (10/10/16 12:28) Complete Blood Count With Diff (10/10/16 12:28) Comprehensive Metabolic Panel (10/10/16 12:28) Prothrombin Time / Inr (Pt) (10/10/16 12:28) Act Partial Throm Time (Ptt) (10/10/16 12:28) Lactic Acid Sepsis Protocol (10/10/16 12:28) Ckmb (Isoenzyme) Profile (10/10/16:) Troponin I (10/10/16:) Urinalysis - C+S If Indicated (10/10/16 12:28) Blood Culture (10/10/16 12:28) Chest, Single Ap (10/10/16 12:28) Blood Glucose (10/10/16 12:28) Ecg Monitoring (10/10/16 12:28) Iv Access Insert/Monitor (10/10/16 12:28) Oximetry (10/10/16 12:28) Oxygen Administration (10/10/16 12:28) Ct Brain W/O Iv Contrast(Rout) (10/10/16 12:28) CKMB (10/10/16 12:35) CKMB% (10/10/16 12:35) Cefepime Inj (Maxipime Inj) (10/10/16 14:25) Vancomycin Inj (Vancomycin Inj) (10/10/16 14:25) Sodium Chlor 0.9% 1000 Ml Inj (Ns 1000 M (10/10/16 14:30) Urine Culture (10/10/16 13:45) Place In Observation (10/10/16 ) Vital Signs (Adult) Q4H (10/10/16 15:32) Diet 1800 Ada Cons Carb (10/10/16 Dinner) Sodium Chlor 0.45% 1000 Ml Inj (1/2 Ns 1 (10/10/16 15:32) Sodium Chloride 0.9% Flush (Ns Flush) (10/10/16 15:45) Sodium Chloride 0.9% Flush (Ns Flush) (10/10/16 21:00) Acetaminophen (Tylenol) (10/10/16 15:45) Ondansetron Inj (Zofran Inj) (10/10/16 15:45) Basic Metabolic Panel (Bmp) (10/11/16 06:00) Complete Blood Count With Diff (10/11/16 06:00) Heparin Inj (Heparin Inj) (10/10/16 17:00) Naloxone Inj (Narcan Inj) (10/10/16 15:45) Docusate Sodium-Senna (Luz Marina-Colace) (10/10/16 21:00) Magnesium Hydroxide Liq (Milk Of Magnesi (10/10/16 15:45) Sennosides (Senokot) (10/10/16 15:45) Bisacodyl Supp (Dulcolax Supp) (10/10/16 15:45) Lactulose Liq (Lactulose Liq) (10/10/16 15:45) Admit Order (Ed Use Only) (10/10/16 15:34) Ceftriaxone Inj (Rocephin Inj) (10/11/16 09:00) (Nena Dumont MD) MDM Medical Decision Making Medical Screen Exam Complete: Yes Emergency Medical Condition: Yes Medical Record Reviewed: Yes Differential Diagnosis Sepsis versus electrolyte abnormality versus MS exacerbation versus intracranial etiology Narrative Course 71 Year-old female presents to the emergency department for evaluation of altered mental status. Patient appears chronically ill. She is mildly tachycardic. Blood pressure is elevated but stable. Patient was given IV fluids, cefepime and vancomycin CBC is without acute concern. CMP is with total CK 603, BUN 19. Troponin is less than 0.02. Lactic acid is 1.4. Urinalysis is cloudy, 300 proteinuria, moderate focal blood, large leukocyte Estrace, innumerable RBC, innumerable WBC, many WBC clumps, many bacteria, culture is indicated. Last Impressions Head CT 10/10/161227 Signed Impressions: Service Date/Time: Monday, October 10, 2016 13:34 - CONCLUSION: Chronic and small vessel ischemic changes without any evidence for acute hemorrhage or mass effect. Jarrett Balderrama MD Chest X-Ray 10/10/163 Signed Impressions: Service Date/Time: Monday, October 10, 2016 13:13 - CONCLUSION: No acute disease. Georges Valdes Jr., MD I discussed the patient with Dr. Brown who agrees to admit the patient observation for further evaluation, IV fluids, and antibiotic. Plan is discussed with the patient's daughter who is in agreement with this plan of care. (Stephanie Sadler) Narrative Course Heel Scorer signing for document in draft. (Nena Dumont MD) Sepsis Criteria SIRS Criteria (2 or more): Heart rate over 90 (Stephanie Sadler) Diagnosis Primary Impression: Altered mental status Qualified Code: R41.82 - Altered mental status, unspecified altered mental status type Additional Impressions: UTI (urinary tract infection) Qualified Code: T83.511A - Urinary tract infection associated with indwelling urethral catheter, initial encounter Indwelling catheter present on admission Condition: Stable Stephanie Sadler Oct 10, 2016 12:30 Nena Dumont MD Oct 19, 2016 17:32 Ratio Activated Partial 24.5 SEC Thromboplast Time Sodium Level 142 MEQ/L Potassium Level 3.9 MEQ/L Chloride Level 106 MEQ/L Carbon Dioxide Level 26.8 MEQ/L Anion Gap 9 MEQ/L Blood Urea Nitrogen 19 MG/DL Creatinine 0.69 MG/DL Estimat Glomerular Filtration 84 ML/MIN Rate Random Glucose 180 MG/DL Lactic Acid Level 1.4 mmol/L Calcium Level 8.7 MG/DL Total Bilirubin 1.1 MG/DL Aspartate Amino Transf 36 U/L (AST/SGOT) Alanine Aminotransferase 19 U/L (ALT/SGPT) Alkaline Phosphatase 113 U/L Total Creatine Kinase 603 U/L Creatine Kinase MB 2.9 NG/ML Creatine Kinase MB % 0.5 % Troponin I LESS THAN 0.02 NG/ML Total Protein 6.7 GM/DL Albumin 2.7 GM/DL Urine Color YELLOW Urine Turbidity CLOUDY Urine pH 6.5 Urine Specific [place] 1.022 Urine Protein 300 mg/dL Urine Glucose (UA) NEG mg/dL Urine Ketones NEG mg/dL Urine Occult Blood MOD Urine Nitrite NEG Urine Bilirubin NEG Urine Urobilinogen 2.0 MG/DL Urine Leukocyte Esterase LARGE Urine RBC /hpf Urine WBC /hpf Urine WBC Clumps MANY Urine Squamous Epithelial 4 /hpf Cells Urine Renal Epithelial Cells 2 /hpf Urine Bacteria MANY /hpf Microscopic Urinalysis Comment CATH-CULTURE IND MDM Medical Decision Making Medical Screen Exam Complete: Yes Emergency Medical Condition: Yes Medical Record Reviewed: Yes Differential Diagnosis Sepsis versus electrolyte abnormality versus MS exacerbation versus intracranial etiology Narrative Course 71 Year-old female presents to the emergency department for evaluation of altered mental status. Patient appears chronically ill. She is mildly tachycardic. Blood pressure is elevated but stable. Patient was given IV fluids, cefepime and vancomycin CBC is without acute concern. CMP is with total CK 603, BUN 19. Troponin is less than 0.02. Lactic acid is 1.4. Urinalysis is cloudy, 300 proteinuria, moderate focal blood, large leukocyte Estrace, innumerable RBC, innumerable WBC, many WBC clumps, many bacteria, culture is indicated. Last Impressions Head CT 10/10/168 Signed Impressions: Service Date/Time: Monday, October 10, 2016 13:34 - CONCLUSION: Chronic and small vessel ischemic changes without any evidence for acute hemorrhage or mass effect. Jrarett Balderrama MD Chest X-Ray 10/10/168 Signed Impressions: Service Date/Time: Saturday, October 10, 2016 13:13 - CONCLUSION: No acute disease. Georges Valdes Jr., MD I discussed the patient with Dr. Brown who agrees to admit the patient observation for further evaluation, IV fluids, and antibiotic. Plan is discussed with the patient's daughter who is in agreement with this plan of care. Sepsis Criteria SIRS Criteria (2 or more): Heart rate over 90 Diagnosis Primary Impression: Altered mental status Qualified Code: R41.82 - Altered mental status, unspecified altered mental status type Additional Impressions: UTI (urinary tract infection) Qualified Code: T83.511A - Urinary tract infection associated with indwelling urethral catheter, initial encounter Indwelling catheter present on admission Condition: Stable Stephanie Sadler JAY Oct 10, 2016 12:30
[2016-10-10 12:57] VITALS: O2SAT 98
[2016-10-10 13:11] LABS: AUTOMATED NEUTROPHIL # 7.1 TH/MM3 (1.8-7.7); BASOPHIL % 0.4 % (0.0-2.0); EOSINOPHIL # 0.3 TH/MM3 (0-0.4); EOSINOPHIL % 2.9 % (0.0-4.0); HEMATOCRIT 38.2 % (35.0-46.0); HEMO FLAGS DIFF FINAL; LYMPH % 11.5 % (9.0-44.0); LYMPHOCYTE # 1.1 TH/MM3 (1.0-4.8); MEAN CELL VOLUME 75.5 FL (80.0-100.0); MEAN CORPUSCULAR HEMOGLOBIN 25.3 PG (27.0-34.0); MEAN CORPUSCULAR HGB CONC 33.5 % (32.0-36.0); MONO % 9.4 % (0.0-8.0); NEUT % 75.8 % (16.0-70.0); PLATELET COUNT 163 TH/MM3 (150-450); RED BLOOD COUNT 5.06 MIL/MM3 (4.00-5.30); WHITE BLOOD COUNT 9.4 TH/MM3 (4.0-11.0)
[2016-10-10 13:18] LABS: APTT (PATIENT) 24.5 SEC (24.3-30.1); INTERNATIONAL NORMALIZED RATIO 1.1 RATIO; PROTHROMBIN TIME - PATIENT 11.8 SEC (9.8-11.6)
[2016-10-10 13:29] LABS: ALT (GPT) 19 U/L (10-53); ANION GAP 9 MEQ/L (5-15); AST (GOT) 36 U/L (15-37); BICARBONATE 26.8 MEQ/L (21.0-32.0); BLOOD UREA NITROGEN 19 MG/DL (7-18); CHLORIDE 106 MEQ/L (98-107); GLOMERULAR FILTRATION RATE 84 ML/MIN (>89); POTASSIUM 3.9 MEQ/L (3.5-5.1); SODIUM (NA) 142 MEQ/L (136-145)
[2016-10-10 13:32] LABS: ALKALINE PHOSPHATASE 113 U/L (45-117); CREATINE KINASE 603 U/L (26-192); TOTAL BILIRUBIN ADULT 1.1 MG/DL (0.2-1.0)
[2016-10-10 13:45] LABS: CKMB 2.9 NG/ML (0.5-3.6)
--- NOTE | 2016-10-10 13:49 | RADRPT ---
EXAM DATE/TIME: 10/10/2016 13:13 [facility] COMPARISON: CHEST SINGLE AP, May 28, 2016, 4:47. INDICATIONS : Altered mental status MEDICAL HISTORY : Chronic obstructive pulmonary disease. SURGICAL HISTORY : coronary artery stent. ENCOUNTER: Initial ACUITY: 1 day PAIN SCORE: Non-responsive. LOCATION: Bilateral chest FINDINGS: A single view of the chest demonstrates the lungs to be symmetrically aerated without evidence of mas s, infiltrate or effusion. The cardiomediastinal contours are unremarkable. Osseous structures are intact. Left humeral head prosthesis. CONCLUSION: No acute disease. Georges Valdes Jr., MD on October 10, 2016 at 13:46 Board Certified Radiologist. This report was verified electronically.
--- NOTE | 2016-10-10 13:53 | RADRPT ---
EXAM DATE/TIME: 10/10/2016 13:34 [facility] COMPARISON: CT BRAIN W/O CONTRAST, May 28, 2016, 3:24. INDICATIONS : Altered mental status. RADIATION DOSE: 32.86 CTDIvol (mGy) MEDICAL HISTORY : Hypothyroidism. Multiple sclerosis. Cardiovascular disease. Hypertension, Diabetes. SURGICAL HISTORY : None. ENCOUNTER: Initial ACUITY: 1 day PAIN SCALE: 0/10 LOCATION: cranial TECHNIQUE: Multiple contiguous axial images were obtained of the head. Using automated exposure control and adj ustment of the mA and/or kV according to patient size, radiation dose was kept as low as reasonably a chievable to obtain optimal diagnostic quality images. DICOM format image data is available electro nically for review and comparison. FINDINGS: There is no evidence for intracranial hemorrhage, mass effect, mass lesions, or edema. The visualize d bony structures appear intact. Moderate degree of brain atrophy is seen. Moderate periventricular white matter changes are seen nonspecific mostly consistent with chronic small vessel ischemic change s. There are no signs of acute infarction for technique. CONCLUSION: Chronic and small vessel ischemic changes without any evidence for acute hemorrhage or mass effect. Jarrett Balderrama MD on October 10, 2016 at 13:49 Board Certified Radiologist. This report was verified electronically.
[2016-10-10 13:57] VITALS: BP 147/65; PULSE 64; RESP 16; O2SAT 98
[2016-10-10] MEDS ORDERED: METO50TA PO (13:58)
[2016-10-10] MEDS ORDERED: CHOL1CAP34 PO (13:58)
[2016-10-10] MEDS ORDERED: REME15TA PO (13:58)
[2016-10-10] MEDS ORDERED: LEVO175T2 PO (13:58)
[2016-10-10] MEDS ORDERED: INSU1INJ5 SQ ×2 (13:58)
[2016-10-10] MEDS ORDERED: ASPI1TAB91 PO (13:58)
[2016-10-10] MEDS ORDERED: HUMALOG SQ (13:58)
[2016-10-10] MEDS ORDERED: NYSTCRE29 TOPICAL (14:14)
[2016-10-10] MEDS ORDERED: GLUC40GE PO (14:14)
[2016-10-10] MEDS ORDERED: LORA-392 PO (14:14)
[2016-10-10] MEDS ORDERED: ABH GEL T-DERMAL (14:14)
[2016-10-10] MEDS ORDERED: GLUC1KIT IM (14:14)
[2016-10-10] MEDS ORDERED: IPRASOL NEB (14:14)
[2016-10-10] MEDS ORDERED: ONDA4INJ2 IM (14:16)
[2016-10-10] MEDS ORDERED: CEFEPIME INJ 2,000 MG in SODIUM CHLORIDE 0.9% INJ 100 ML IV STA (14:25)
[2016-10-10] MEDS ORDERED: VANCOMYCIN INJ 1,000 MG in SODIUM CHLOR 0.9% 250 ML INJ 250 ML IV STA (14:25)
[2016-10-10 14:28] LABS: BACTERIA, URINE MANY /hpf; BLOOD, URINE MOD (NEG); GLUCOSE,URINE NEG (NEG); KETONE, URINE NEG (NEG); NITRITE,URINE NEG (NEG); PH, URINE 6.5 (5.0-8.5); RENAL EPITHELIAL CELLS 2 /hpf; SQUAMOUS EPITHELIAL CELL URINE 4 /hpf (0-5); URINE COLOR YELLOW (YELLW/STRAW)
[2016-10-10 14:29] LABS: COMMENT (UR) CATH-CULTURE IND; CULTURE IF INDICATED CATH CULTURE IND
[2016-10-10] MEDS ORDERED: SODIUM CHLOR 0.9% 1000 ML INJ 1,000 ML IV ONE (14:30)
[2016-10-10] MEDS: SODIUM CHLOR 0.45% 1000 ML INJ 1,000 ML IV SCH (15:32)
[2016-10-10] MEDS ORDERED: LACTULOSE SYRUP 20 GM/30 ML CUP PO PRN (15:45)
[2016-10-10] MEDS ORDERED: ONDANSETRON HCL 4 MG/2 ML VIAL IVP PRN (15:45)
[2016-10-10] MEDS ORDERED: ACETAMINOPHEN 325 MG TAB PO PRN (15:45)
[2016-10-10] MEDS ORDERED: NALOXONE HCL 0.4 MG/ML AMP IV PRN (15:45)
[2016-10-10] MEDS ORDERED: RESP: ALBUTEROL 2.5 MG/IPRATROPIUM 0.5 MG NEB (PRN) NEB (15:45)
[2016-10-10] MEDS ORDERED: SENNOSIDES 8.6 MG TAB PO PRN (15:45)
[2016-10-10] MEDS ORDERED: SODIUM CHLORIDE 0.9% FLUSH 10 ML FLUSH IV FLUSH PRN (15:45)
[2016-10-10] MEDS ORDERED: BISACODYL 10 MG SUPP RECTAL PRN (15:45)
[2016-10-10] MEDS ORDERED: NON-FORMULARY DRUG (Cholecalciferol (Vitamin D3) 50,000 UNITS) PO SCH (15:45)
[2016-10-10] MEDS ORDERED: GLUCAGON 1 MG IM PRN (15:45)
[2016-10-10] MEDS ORDERED: MAGNESIUM HYDROXIDE SUSP 30 ML CUP PO PRN (15:45)
--- NOTE | 2016-10-10 16:26 | EKG ---
Date Performed: 10/10/2016 Time Performed: 12:10:36 PTAGE: 71 years EKG: Sinus rhythm WITH SINUS ARRHYTHMIA NORMAL ECG NO PREVIOUS TRACING DOCTOR: Ziyad Hancock Interpretating Date/Time 10/10/2016 16:26:25
[2016-10-10] MEDS ORDERED: HALDOL TOPICAL PRN (16:30)
[2016-10-10] MEDS ORDERED: ABH TOPICAL PRN (16:30)
[2016-10-10] MEDS ORDERED: BENADRYL TOPICAL PRN (16:30)
[2016-10-10 16:52] VITALS: O2SAT 97
[2016-10-10 17:31] VITALS: BP 140/87; PULSE 98; RESP 19; TEMP 98.2; O2SAT 98
[2016-10-10] MEDS: HEPARIN SODIUM - SQ 10,000 UNITS/ML VIAL SQ SCH (18:53)
[2016-10-10] MEDS: NYSTATIN/TRIAMCINOLONE CREAM 15 GM TOPICAL SCH (18:54)
--- NOTE | 2016-10-10 19:15 | HP.UPD ---
H&P Update Note seen, examined by myself, Dr Brown, today 10/10/16 and the emergency department room C 36 Discussed with patient's daughter The patient herself is not responsive except for noxious stimuli 71-year-old female from [facility] Became unresponsive for the last day or so Has a chronic indwelling Aguilar catheter Bedridden Advanced multiple sclerosis Admitted with sepsis, sinus tachycardia, cellulitis of the neck, ulcer in the heel of the left foot, conjunctivitis, and possible urinary infection Recent ESBL urinary infection Poor prognosis Critical condition DNR Over 45 minutes been Discussed with emergency physician Discussed with mid level provider Full history and physical to follow The exam, history, and the medical decision-making described in the above note were completed with the assistance of the mid-level provider. I reviewed the findings presented. I attest that I had a csra-ea-sect encounter with the patient on the same day, and personally performed and documented my assessment and findings in the medical record Darryn Brown MD Oct 10, 2016 19:14
[2016-10-10] MEDS ORDERED: Vancomycin Consult Pharmacy 1 EA OTHER SCH (19:30)
[2016-10-10] MEDS ORDERED: VANCOMYCIN INJ 1,000 MG in SODIUM CHLOR 0.9% 250 ML INJ 250 ML IV ONE (20:00)
[2016-10-10 20:51] VITALS: BP 166/72; PULSE 96; RESP 20; TEMP 97.5; O2SAT 98
[2016-10-10] MEDS: SODIUM CHLORIDE 0.9% FLUSH 10 ML FLUSH IV FLUSH SCH (21:13)
[2016-10-10] MEDS: DOCUSATE SODIUM 50 MG/SENNA 8.6 MG TAB PO SCH (21:14)
[2016-10-10] MEDS: INSULIN DETEMIR 100 UNITS/ML VIAL SQ SCH (22:00)
[2016-10-10] MEDS ORDERED: GLUCAGON 1 MG/ML VIAL OTHER PRN (22:15)
--- NOTE | 2016-10-10 22:36 | EKG ---
Date Performed: 10/10/2016 Time Performed: 15:46:26 PTAGE: 71 years EKG: SINUS TACHYCARDIA ABNORMAL RHYTHM ECG NO PREVIOUS TRACING DOCTOR: Ziyad Hancock Interpretating Date/Time 10/10/2016 22:35:52
[2016-10-10] MEDS: DEXTROSE 50% IN WATER 50 ML VIAL(D50) IV PUSH PRN (23:57)
[2016-10-11] VITALS (7 sets, daily range): BP systolic 115–183; BP diastolic 58–90; PULSE 76–90; RESP 17–20; TEMP 98.1–99.3; O2SAT 92–98
[2016-10-11] MEDS: HEPARIN SODIUM - SQ 10,000 UNITS/ML VIAL SQ SCH ×2 (05:48→18:22)
[2016-10-11] MEDS: LEVOTHYROXINE SODIUM 100 MCG TAB PO SCH (05:48)
[2016-10-11] MEDS: LEVOTHYROXINE SODIUM 75 MCG TAB PO SCH (05:48)
[2016-10-11] MEDS ORDERED: DEXTROSE 50% IN WATER 50 ML SYRINGE ONE (05:56)
[2016-10-11] MEDS: INSULIN ASPART 1,000 UNITS/10 ML VIAL SQ SCH ×2 (06:04→16:00)
[2016-10-11] MEDS: DEXTROSE 50% IN WATER 50 ML VIAL(D50) IV PUSH PRN ×2 (06:12→06:21)
[2016-10-11] MEDS ORDERED: DEXTROSE 50% IN WATER 50 ML SYRINGE IV PUSH PRN (06:15)
[2016-10-11] MEDS: SODIUM CHLOR 0.45% 1000 ML INJ 1,000 ML IV SCH ×2 (07:19→18:23)
[2016-10-11 07:43] LABS: AUTOMATED NEUTROPHIL # 4.5 TH/MM3 (1.8-7.7); BASOPHIL % 0.6 % (0.0-2.0); EOSINOPHIL # 0.2 TH/MM3 (0-0.4); EOSINOPHIL % 3.6 % (0.0-4.0); HEMATOCRIT 33.3 % (35.0-46.0); HEMO FLAGS DIFF FINAL; LYMPH % 11.9 % (9.0-44.0); LYMPHOCYTE # 0.7 TH/MM3 (1.0-4.8); MEAN CELL VOLUME 75.4 FL (80.0-100.0); MEAN CORPUSCULAR HEMOGLOBIN 24.7 PG (27.0-34.0); MEAN CORPUSCULAR HGB CONC 32.8 % (32.0-36.0); MONO % 10.8 % (0.0-8.0); NEUT % 73.1 % (16.0-70.0); PLATELET COUNT 145 TH/MM3 (150-450); RED BLOOD COUNT 4.42 MIL/MM3 (4.00-5.30); WHITE BLOOD COUNT 6.2 TH/MM3 (4.0-11.0)
[2016-10-11 08:39] LABS: BICARBONATE 25.8 MEQ/L (21.0-32.0); POTASSIUM 3.8 MEQ/L (3.5-5.1)
[2016-10-11] MEDS: SODIUM CHLORIDE 0.9% FLUSH 10 ML FLUSH IV FLUSH SCH ×2 (08:59→21:40)
[2016-10-11] MEDS ORDERED: TERIFLUNOMIDE 14 MG PO SCH (09:00)
[2016-10-11] MEDS: INSULIN DETEMIR 100 UNITS/ML VIAL SQ SCH ×2 (09:00→19:54)
[2016-10-11] MEDS: NYSTATIN/TRIAMCINOLONE CREAM 15 GM TOPICAL SCH ×2 (09:00→21:39)
[2016-10-11] MEDS ORDERED: cefTRIAXone INJ 1,000 MG in SODIUM CHLORIDE 0.9% INJ 100 ML IV SCH (09:00)
[2016-10-11] MEDS: CEFEPIME INJ 1,000 MG in SODIUM CHLORIDE 0.9% INJ 100 ML IV SCH ×2 (09:13→21:40)
[2016-10-11] MEDS ORDERED: VANCOMYCIN 1,000 MG/NS 250 ML IV SCH ×2 (11:00)
[2016-10-11] MEDS: POTASSIUM CHLORIDE 10 MEQ CONTROLLED RELEASE TAB PO SCH (11:55)
[2016-10-11] MEDS: ASPIRIN EC 81 MG TABEC PO SCH (11:55)
[2016-10-11] MEDS: VALSARTAN 160 MG TAB PO SCH (11:56)
[2016-10-11] MEDS: METOPROLOL TARTRATE 50 MG TAB PO SCH (11:56)
[2016-10-11] MEDS: MIRTAZAPINE 15 MG TAB PO SCH (11:56)
[2016-10-11] MEDS: DOCUSATE SODIUM 50 MG/SENNA 8.6 MG TAB PO SCH ×2 (11:57→21:39)
[2016-10-11] MEDS: VANCOMYCIN INJ 1,500 MG in SODIUM CHLORID 0.9% 500 ML INJ 500 ML IV SCH ×2 (12:23→22:33)
[2016-10-11] MEDS: CIPROFLOXACIN 0.3% OPTH SOLN 2.5 ML BTL EACH EYE SCH ×3 (15:11→21:39)
--- NOTE | 2016-10-11 17:20 | PD.CONS ---
History of Present Illness Service Podiatry Consult Requested By Reason for Consult R heel ulcer, infected Primary Care Physician Alvaro Holt M.D. Diagnoses: History of Present Illness Patient uncertain how long wound has been present to R posterior heel. She says the [facility] was stating that the wound just showed up yesterday. It is red with necrotic center and very painful. Past Family Social History Allergies: Coded Allergies: No Known Allergies (Unverified , 01/12/16) Past Medical History Anemia High cholesterol CVA, R sided HTN Hypothyroidism Past Surgical History unknown Active Ordered Medications Current Medications Medications (Trade) Dose Ordered Sig/Tasia Route Start Time Stop Time Status Last Admin (04/02 NS 1000 ml Inj) 1,000 ml @ 75 mls/hr [id number] IV 10/10/16 15:32 10/11/16 07:19 (NS Flush) 2 ml UNSCH PRN IV FLUSH 10/10/16 15:45 (NS Flush) 2 ml BID IV FLUSH 10/10/16 21:00 10/10/16 21:13 (Tylenol) 650 mg Q4H PRN PO 10/10/16 15:45 (Zofran Inj) 4 mg Q6H PRN IVP 10/10/16 15:45 (Heparin Inj) 5,000 units Q12H SQ 10/10/16 17:00 10/11/16 05:48 (Narcan Inj) 0.4 mg UNSCH PRN IV 10/10/16 15:45 (Luz Marina-Colace) 1 tab BID PO 10/10/16 21:00 10/10/16 21:14 (Milk Of Magnesia Liq) 30 ml Q12H PRN PO 10/10/16 15:45 (Senokot) 17.2 mg Q12H PRN PO 10/10/16 15:45 (Dulcolax Supp) 10 mg DAILY PRN RECTAL 10/10/16 15:45 (Lactulose Liq) 30 ml DAILY PRN PO 10/10/16 15:45 (Ecotrin Ec) 81 mg DAILY PO 10/11/16 09:00 10/11/16 11:55 (Catapres-Tts 0.1mg Patch.7d) 1 patch Q7D T-DERMAL 10/15/16 09:00 (Ativan) 0.5 mg Q8H PRN PO 10/10/16 15:45 (Lopressor) 50 mg DAILY PO 10/11/16 09:00 10/11/16 11:56 (Remeron) 15 mg DAILY PO 10/11/16 09:00 10/11/16 11:56 (KCl) 10 meq DAILY PO 10/11/16 09:00 10/11/16 11:55 (Diovan) 320 mg DAILY PO 10/11/16 09:00 10/11/16 11:56 (Levemir Inj) 20 units HS SQ 10/10/16 22:00 (Levemir Inj) 50 units DAILY SQ 10/11/16 09:00 (NovoLOG INJ) 4 units BIDAC SQ 10/11/16 07:00 (Synthroid) 100 mcg DAILY@06 PO 10/11/16 06:00 10/11/16 05:48 Patient Own Medication PT OWN MED: Teriflunomide (Aubagio)... DAILY PO 10/11/16 09:00 Hold Miscellaneous Information 1 Q7D T-DERMAL 10/15/16 09:00 Levothyroxine Sodium 75 mcg 75 mcg DAILY@06 PO 10/11/16 06:00 10/11/16 05:48 Cefepime HCl 1000 mg/Sodium Chloride 100 ml @ 200 mls/hr Q12H IV 10/11/16 09:00 10/11/16 09:13 (Vancomycin Consult Pharmacy) 0 ml @ 0 mls/hr UNSCH OTHER 10/10/16 19:30 (D50w (Vial) Inj) 25 ml UNSCH PRN IV PUSH 10/10/16 22:15 10/11/16 06:21 (Glucagon Inj) 1 mg UNSCH PRN OTHER 10/10/16 22:15 10/10/16 23:53 Miscellaneous Information SPECIFIC LAB TO BE DRAWN:VANCO TROUGH DATE TO BE DRMaritza. ONCE ONCE .XX 10/12/16 22:45 10/12/16 22:46 (Vancomycin Inj/ NS 500 ml Inj) 515 ml @ 250 mls/hr Q12H IV 10/11/16 11:00 10/11/16 12:23 (Mycolog Ii Cream) 1 applic BID TOPICAL 10/11/16 21:00 (Ciloxan 0.3% Opth Soln) 2 drop QID EACH EYE 10/11/16 13:00 10/11/16 15:11 (Santyl Oint) 1 applic DAILY TOPICAL 10/12/16 09:00 UNV Family History unknown Social History unknown Physical Exam Vital Signs Vital Signs Date Time Temp Pulse Resp B/P Pulse Ox O2 Delivery O2 Flow Rate FiO2 10/11/16 15:53 99.0 77 20 148/65 96 10/11/16 12:04 98.8 81 18 115/58 98 10/11/16 08:22 99.1 77 20 142/63 95 10/11/16 04:52 99.3 80 20 162/69 98 10/11/16 00:12 98.1 90 17 183/85 95 10/10/16 20:51 97.5 96 20 166/72 98 10/10/16 17:31 98.2 98 19 140/87 98 Physical Exam Palpable pulses. R posterior heel area with central necrotic eschar 2cm x 1cm and peripheral erythema extending 2cm beyond and around necrotic center. Not boggy. No malodor. No fluctuance. No purulence noted. No exposed tendon noted. Very painful to palpation Laboratory Laboratory Tests Test 10/11/16 06:40 White Blood Count 6.2 Red Blood Count 4.42 Hemoglobin 10.9 Hematocrit 33.3 Mean Corpuscular Volume 75.4 Mean Corpuscular Hemoglobin 24.7 Mean Corpuscular Hemoglobin 32.8 Concent Red Cell Distribution Width 17.0 Platelet Count 145 Mean Platelet Volume 9.3 Neutrophils (%) (Auto) 73.1 Lymphocytes (%) (Auto) 11.9 Monocytes (%) (Auto) 10.8 Eosinophils (%) (Auto) 3.6 Basophils (%) (Auto) 0.6 Neutrophils # (Auto) 4.5 Lymphocytes # (Auto) 0.7 Monocytes # (Auto) 0.7 Eosinophils # (Auto) 0.2 Basophils # (Auto) 0.0 CBC Comment DIFF FINAL Differential Comment Sodium Level 142 Potassium Level 3.8 Chloride Level 110 Carbon Dioxide Level 25.8 Anion Gap 6 Blood Urea Nitrogen 16 Creatinine 0.43 Estimat Glomerular Filtration 145 Rate Random Glucose 134 Calcium Level 8.3 Date/Time Procedure Status Source Growth 10/10/16 13:45 Urine Culture - Preliminary Resulted Urine Catheterized Urine Gram Negative Sin 10/10/16 12:35 Aerobic Blood Culture - Preliminary Resulted Blood Peripheral NO GROWTH IN 1 DAY 10/10/16 12:35 Anaerobic Blood Culture - Preliminary Resulted Blood Peripheral NO GROWTH IN 1 DAY Result Diagram: 10/11/16 0640 10/11/16 0640 Imaging Last Impressions Head CT 10/10/16 1228 Signed Impressions: Service Date/Time: Saturday, October 10, 2016 13:34 - CONCLUSION: Chronic and small vessel ischemic changes without any evidence for acute hemorrhage or mass effect. Jarrett Balderrama MD Chest X-Ray 10/10/16 1228 Signed Impressions: Service Date/Time: Monday, October 10, 2016 13:13 - CONCLUSION: No acute disease. Georges Valdes Jr., MD Assessment and Plan Assessment and Plan R heel ulcer, infected locally Ordering MRI R foot to evaluate if fluid collection present Continue offloading R heel Ordered santyl dressing daily with bordered gauze to R heel wound Will determine if continued enzymatic vs bedside debridement necessary in coming days pending MRI results and response to IV antibiotics Lucila Purdy DPM Oct 11, 2016 17:19
--- NOTE | 2016-10-11 18:25 | MB ---
cc: SOM SARAH MD DATE OF CONSULTATION: 10/11/2016. REASON FOR CONSULTATION: Right diabetic foot and left neck cellulitis, bilateral conjunctivitis. REQUESTING PHYSICIAN: Dr. Brown. HISTORY OF PRESENT ILLNESS: This is a 71-year-old white female who was brought [facility] emergency department from the [facility] with altered mental status. The patient is a resident of [facility]. She was noted not to be cooperating with a usual care and was less responsive and became obtunded and was brought to the emergency department for evaluation. She complained of pain all over after she got to the emergency department. She was noted to have an area of redness at the left heel, which is painful. A urinalysis was performed and it was remarkable with many white cells and urine culture came back with gram-negative diego. Blood cultures were also obtained and the results are pending. The patient has no fever. White count is normal. This consultation is requested for evaluation and treatment. PAST MEDICAL HISTORY: 1. Multiple sclerosis. 2. Hypertension. 3. Hypothyroidism. 4. Hypercholesterolemia. 5. Anemia. 6. History of CVA with residual right-sided weakness. ALLERGIES: NO KNOWN DRUG ALLERGIES. MEDICATIONS: 1. Vancomycin. 2. Ciprofloxacin eye drops. 3. Mycolog Cream apply to the skin. 4. Santyl Ointment. 5. Potassium. 6. Remeron. 7. Lopressor. 8. Ecotrin. 9. Diovan. 10. Levemir. 11. Insulin. 12. Synthroid. 13. Subcutaneous heparin. SOCIAL HISTORY: [place]. No tobacco. No alcohol. No illicit drugs. FAMILY HISTORY: Noncontributory. REVIEW OF SYSTEMS: Negative on ten-point review except for weakness on the right side and pain in the left heel. PHYSICAL EXAMINATION: GENERAL: This is a moderately obese female who is in no acute distress. She is awake. VITAL SIGNS: Temperature 99 degrees, blood pressure 140/65, respirations 20, heart rate 77. HEAD, EYES, EARS, NOSE, THROAT: Head atraumatic. The face is reddened. Extraocular movements grossly intact. Pupils reactive to light. No icterus. Oropharynx has no visible lesions. NECK: The neck is supple. Erythema at the neck. No visible swelling. LUNGS: Decreased breath sounds throughout. HEART: Regular S1 and S2. ABDOMEN: Soft, nontender. BUTTOCKS: The buttocks have erythema in the groove of the buttocks and also the lower coccyx area and stage I skin breakdown. The area of erythema is beefy red. RECTAL: Not performed. EXTREMITIES: The left heel has erythema encompassing the posterior aspect of the heel with a necrotic dry center and tenderness on palpation. There is no drainage. NEUROLOGIC: Flaccid right. The patient is awake although she becomes somnolent when she is not engaged in conversation. SKIN: No diffuse rash. PSYCHIATRIC: The patient is pleasant. LABORATORY DATA: WBCs 6.2, platelets 145,000, hemoglobin 10.9, 73% neutrophils. Creatinine 0.43, BUN 16, sodium 142. IMPRESSION: 1. 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 2. Urinary tract infection with gram-negative diego. RECOMMENDATIONS: 1. Continue vancomycin. 2. Monitor blood cultures. 3. Continue cefepime for urinary tract infection. 4. Monitor identity of the gram-negative bacteria in the urine. 5. Surgical intervention depending on podiatry evaluation. MRI has been ordered to evaluate the extent of involvement of the underlying structures of the foot with infection and possibly osteomyelitis. Thank you for this consultation. The patient's progress will be followed with you and further recommendations will be given upon followup. Further disposition will depend on the cultures. Som Sarah MD FD/MATHIEU /5:48 PM /6:13 PM
--- NOTE | 2016-10-11 18:46 | HHI.PR ---
Subjective Interval History Alert, verbal, much more responsive than yesterday, oriented to person last name , not oriented to place or person otherwise, no visible distress, neck looks better, seen in the presence of her daughter Review of Systems Constitutional Constitutional Remarks General weakness, 10 systems reviewed and otherwise negative but not reliable Vitals/Results Intake & Output 10/10/16 10/10/16 10/11/16 15:00 23:00 07:00 Intake Total 100 ml Balance 100 ml Intake Oral 100 ml Vital Signs Vital Signs Date Time Temp Pulse Resp B/P Pulse Ox O2 Delivery O2 Flow Rate FiO2 10/11/16 15:53 99.0 77 20 148/65 96 10/11/16 12:04 98.8 81 18 115/58 98 10/11/16 08:22 99.1 77 20 142/63 95 10/11/16 04:52 99.3 80 20 162/69 98 10/11/16 00:12 98.1 90 17 183/85 95 10/10/16 20:51 97.5 96 20 166/72 98 CBC/BMP: 10/11/16 0640 10/11/16 0640 Lab Results Laboratory Tests Test 10/11/16 06:40 White Blood Count 6.2 TH/MM3 Red Blood Count 4.42 MIL/MM3 Hemoglobin 10.9 GM/DL Hematocrit 33.3 % Mean Corpuscular Volume 75.4 FL Mean Corpuscular Hemoglobin 24.7 PG Mean Corpuscular Hemoglobin 32.8 % Concent Red Cell Distribution Width 17.0 % Platelet Count 145 TH/MM3 Mean Platelet Volume 9.3 FL Neutrophils (%) (Auto) 73.1 % Lymphocytes (%) (Auto) 11.9 % Monocytes (%) (Auto) 10.8 % Eosinophils (%) (Auto) 3.6 % Basophils (%) (Auto) 0.6 % Neutrophils # (Auto) 4.5 TH/MM3 Lymphocytes # (Auto) 0.7 TH/MM3 Monocytes # (Auto) 0.7 TH/MM3 Eosinophils # (Auto) 0.2 TH/MM3 Basophils # (Auto) 0.0 TH/MM3 CBC Comment DIFF FINAL Differential Comment Sodium Level 142 MEQ/L Potassium Level 3.8 MEQ/L Chloride Level 110 MEQ/L Carbon Dioxide Level 25.8 MEQ/L Anion Gap 6 MEQ/L Blood Urea Nitrogen 16 MG/DL Creatinine 0.43 MG/DL Estimat Glomerular Filtration 145 ML/MIN Rate Random Glucose 134 MG/DL Calcium Level 8.3 MG/DL Physical Exam General General Appearance: Comfortable, Obese Eyes Eye Exam: Pupils Reactive Eye Remarks Bilateral conjunctival congestion, bilateral yellow drainage around the eyes Ears & Nose Ears & Nose Exam: Nasal Mucosa [place] Throat Throat Exam: Oral Mucosa [place] & Moist Neck Neck Exam: Trachea Midline Neck Remarks Redness along the left lower aspect of the neck, looks improved Pulmonary Resp Exam: Breath Sounds Equal, Crackles Cardiology CV Exam: Normal Sinus Rhythm, Good Perfusion Gastrointestinal/Abdomen GI Exam: Non-Tender, Bowel Sounds Present Musculoskeletal MS Exam: Normal Tone MS Remarks Does not walk, Aguilar catheter in place, Extremeties Extremeties Remarks Black eschar around the right heel with some surrounding redness Neurologic Neuro Exam: Alert, Awake, Moving All Extremities VTE Prophylaxis VTE Prophylaxis Meds: Heparin Assessment/Plan Assessment/Plan Assessment Suspected urinary infection Cellulitis left side of the neck Right heel ulcer with cellulitis Conjunctivitis Bedridden status Management Continue cefepime Continue vancomycin Ciprofloxacin eyedrops MRI of the right foot has been ordered Infectious disease specialist following 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
[2016-10-11] MEDS ORDERED: GADODIAMIDE PF 287 MG/ML 20 ML VIAL (for RAD MRI) IV ONE (18:57)
--- NOTE | 2016-10-11 19:48 | RADRPT ---
EXAM DATE/TIME: 10/11/2016 18:49 [place] COMPARISON: No previous studies available for comparison. INDICATIONS : Cellulitis. Right heel wound. CONTRAST: 20 cc Omniscan (gadodiamide) IV MEDICAL HISTORY : Hypertension. Diabetes mellitus type 2. Chronic obstructive pulmonary disease. Multiple sclerosis. SURGICAL HISTORY : Carotid stent. ENCOUNTER: Initial ACUITY: 1 week PAIN SCORE: 0/10 LOCATION: Right Foot. TECHNIQUE: Multiplanar, multisequence MRI examination was performed without contrast and after the intravenous a dministration of gadolinium. FINDINGS: There is minimal edema at the insertion site of the Achilles tendon and calcaneus probably chron ic. No definite bony destruction is identified. There is no evidence for subcutaneous abscess formati on or osteomyelitis. CONCLUSION: No definite signs of osteomyelitis or abscess. Jarrett Balderrama MD on October 11, 2016 at 19:41 Board Certified Radiologist. This report was verified electronically.
[2016-10-12 04:48] VITALS: BP 194/106; PULSE 86; RESP 21; TEMP 98; O2SAT 96
[2016-10-12] MEDS: LEVOTHYROXINE SODIUM 100 MCG TAB PO SCH (05:25)
[2016-10-12] MEDS: LEVOTHYROXINE SODIUM 75 MCG TAB PO SCH (05:25)
[2016-10-12] MEDS: HEPARIN SODIUM - SQ 10,000 UNITS/ML VIAL SQ SCH ×2 (05:25→17:00)
[2016-10-12] MEDS: INSULIN ASPART 1,000 UNITS/10 ML VIAL SQ SCH ×2 (05:30→17:13)
[2016-10-12] MEDS: cloNIDine HCL 0.1 MG TAB PO PRN ×2 (06:15→11:09)
[2016-10-12] MEDS: SODIUM CHLOR 0.45% 1000 ML INJ 1,000 ML IV SCH (07:33)
[2016-10-12 08:27] VITALS: BP 184/78; PULSE 85; RESP 16; TEMP 98; O2SAT 96
[2016-10-12] MEDS: CIPROFLOXACIN 0.3% OPTH SOLN 2.5 ML BTL EACH EYE SCH ×5 (08:40→20:37)
[2016-10-12] MEDS: SODIUM CHLORIDE 0.9% FLUSH 10 ML FLUSH IV FLUSH SCH ×2 (08:40→20:37)
[2016-10-12] MEDS: METOPROLOL TARTRATE 50 MG TAB PO SCH ×2 (08:41→20:38)
[2016-10-12] MEDS: POTASSIUM CHLORIDE 10 MEQ CONTROLLED RELEASE TAB PO SCH ×2 (08:41→08:53)
[2016-10-12] MEDS: ASPIRIN EC 81 MG TABEC PO SCH (08:41)
[2016-10-12] MEDS: INSULIN DETEMIR 100 UNITS/ML VIAL SQ SCH ×2 (08:41→20:38)
[2016-10-12] MEDS: MIRTAZAPINE 15 MG TAB PO SCH (08:41)
[2016-10-12] MEDS: DOCUSATE SODIUM 50 MG/SENNA 8.6 MG TAB PO SCH ×3 (08:41→20:37)
[2016-10-12] MEDS: VALSARTAN 160 MG TAB PO SCH ×2 (08:41→08:52)
[2016-10-12] MEDS: CEFEPIME INJ 1,000 MG in SODIUM CHLORIDE 0.9% INJ 100 ML IV SCH (09:32)
[2016-10-12] MEDS: NYSTATIN/TRIAMCINOLONE CREAM 15 GM TOPICAL SCH ×2 (09:33→20:37)
[2016-10-12] MEDS: COLLAGENASE OINT 30 GM TUBE TOPICAL SCH (10:08)
[2016-10-12 11:08] VITALS: BP 175/80; PULSE 68; RESP 18; TEMP 96.8; O2SAT 95
[2016-10-12] MEDS: VANCOMYCIN INJ 1,500 MG in SODIUM CHLORID 0.9% 500 ML INJ 500 ML IV SCH (11:24)
--- NOTE | 2016-10-12 14:13 | HHI.IDPN ---
Note Infectious Disease Note Patient says she does note feel good. Cannot explain exactly how she feels. Noted to be confused earlier. Eating lunch. Afebrile. MRI of the left heel showed no abscess or osteomyelitis. PAST MEDICAL HISTORY: 1. Multiple sclerosis. 2. Hypertension. 3. Hypothyroidism. 4. Hypercholesterolemia. 5. Anemia. 6. History of CVA with residual right-sided weakness. ALLERGIES: NO KNOWN DRUG ALLERGIES. MEDICATIONS: 1. Vancomycin. 2. Ciprofloxacin eye drops. SOCIAL HISTORY: [facility] resident. No tobacco. No alcohol. No illicit drugs. OBJECTIVE> Vital Signs Date Time Temp Pulse Resp B/P Pulse Ox O2 Delivery O2 Flow Rate FiO2 10/12/16 11:08 96.8 68 18 175/80 95 10/12/16 08:27 98.0 85 16 184/78 96 10/12/16 04:48 98.0 86 21 194/106 96 10/11/16 23:14 98.4 80 20 179/90 92 10/11/16 19:58 98.4 76 18 170/75 97 10/11/16 15:53 99.0 77 20 148/65 96 10/11/16 10/11/16 10/12/16 14:59 22:59 06:59 Intake Total 850 ml Output Total 580 ml 1300 ml 1000 ml Balance 270 ml -1300 ml -1000 ml IV Total 850 ml Output Urine Total 580 ml 1300 ml 1000 ml Laboratory Tests Test 10/11/16 06:40 White Blood Count 6.2 TH/MM3 Red Blood Count 4.42 MIL/MM3 Hemoglobin 10.9 GM/DL Hematocrit 33.3 % Mean Corpuscular Volume 75.4 FL Mean Corpuscular Hemoglobin 24.7 PG Mean Corpuscular Hemoglobin 32.8 % Concent Red Cell Distribution Width 17.0 % Platelet Count 145 TH/MM3 Mean Platelet Volume 9.3 FL Neutrophils (%) (Auto) 73.1 % Lymphocytes (%) (Auto) 11.9 % Monocytes (%) (Auto) 10.8 % Eosinophils (%) (Auto) 3.6 % Basophils (%) (Auto) 0.6 % Neutrophils # (Auto) 4.5 TH/MM3 Lymphocytes # (Auto) 0.7 TH/MM3 Monocytes # (Auto) 0.7 TH/MM3 Eosinophils # (Auto) 0.2 TH/MM3 Basophils # (Auto) 0.0 TH/MM3 CBC Comment DIFF FINAL Differential Comment Laboratory Tests Test 10/11/16 06:40 Sodium Level 142 MEQ/L Potassium Level 3.8 MEQ/L Chloride Level 110 MEQ/L Carbon Dioxide Level 25.8 MEQ/L Anion Gap 6 MEQ/L Blood Urea Nitrogen 16 MG/DL Creatinine 0.43 MG/DL Estimat Glomerular Filtration 145 ML/MIN Rate Random Glucose 134 MG/DL Calcium Level 8.3 MG/DL Microbiology Date/Time Procedure Status Source Growth 10/10/16 12:25 Aerobic Blood Culture - Preliminary Resulted Blood Peripheral NO GROWTH IN 2 DAYS 10/10/16 12:25 Anaerobic Blood Culture - Preliminary Resulted Blood Peripheral NO GROWTH IN 2 DAYS 10/10/16 12:35 Aerobic Blood Culture - Preliminary Resulted Blood Peripheral NO GROWTH IN 2 DAYS 10/10/16 12:35 Anaerobic Blood Culture - Preliminary Resulted Blood Peripheral NO GROWTH IN 2 DAYS 10/10/16 13:45 Urine Culture - Preliminary Resulted Urine Catheterized Urine Escherichia Coli Proteus Mirabilis Staphylococcus Species IMAGING: Foot MRI 10/11/16 0000 Signed Impressions: Service Date/Time: September 18:49 - CONCLUSION: No definite signs of osteomyelitis or abscess. Jarrett Balderrama MD Head CT 10/10/16 1228 Signed Impressions: Service Date/Time: Monday, October 10, 2016 13:34 - CONCLUSION: Chronic and small vessel ischemic changes without any evidence for acute hemorrhage or mass effect. Jarrett Balderrama MD Chest X-Ray 10/10/16 1228 Signed Impressions: Service Date/Time: Monday, October 10, 2016 13:13 - CONCLUSION: No acute disease. Georges Valdes Jr., MD PHYSICAL EXAMINATION: GENERAL: No acute distress. Responsive. HEAD, EYES, EARS, NOSE, THROAT: Head atraumatic. The face is mildly erythematous diffusely. Extraocular movements grossly intact. Pupils reactive to light. No icterus. mild conjunctival erythema. Oropharynx has no visible lesions. NECK: The neck is supple. Erythema at the neck. No visible swelling. LUNGS: Decreased breath sounds throughout. HEART: Regular S1 and S2. ABDOMEN: Soft, nontender. BUTTOCKS: The buttocks have erythema in the groove of the buttocks and also the lower coccyx area and stage I skin breakdown. The area of erythema is beefy red. EXTREMITIES: The left heel has erythema encompassing the posterior aspect of the heel with a necrotic dry center and tenderness on palpation. There is no drainage. NEUROLOGIC: Awake and alert. SKIN: No diffuse rash. PSYCHIATRIC: The patient is pleasant. IMPRESSION: 1. 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 2. Urinary tract infection vs colonization. Urine culture has 3 different bacteria which makes colonization more likely. 3. erythema at the face does not appear to be cellulitis. RECOMMENDATIONS: 1. Stop vancomycin. 2. Stop Cefepime. 3. Change Aguilar catheter. 3. Keflex PO for heel cellulitis x 10 days. 4. Surgical intervention to be determined by podiatry Som Pandey MD Oct 12, 2016 14:13
--- NOTE | 2016-10-12 15:14 | PD.WCN.NOT ---
Wound Consult Description: R buttock wound Communicated with: TEJA Burton and Call placed to Doctor Selwyn for orders Recommendation: Please apply antifungal cream and Calazime barrier cream mixed 50/50 to Bilateral buttocks, coccyx, sacrum, and perianal areas and leave open to air BID and PRN Additional Information: Patient seen on G pod CDU for screening of R buttock wound noted in nursing documentation. Patient positioned to R side for assessment. Patient is noted with blanchable erythema and denuded skin to bilateral buttocks, ashlee anal area , gluteal cleft, and inner thighs that is incontinence associated, with diffuse small areas of partial thickness skin loss that is also incontinence related.Satellite lesions are noted surrounding erythema to bilateral buttocks, perianal and inner thigh erythema, indicating fungal. Cleansed patient of stool and urine with soap and water gently and patted dry. Left all areas noted above open to air. Lazara Cristobal [facility] Oct 12, 2016 15:14
[2016-10-12 16:21] VITALS: BP 139/69; PULSE 75; RESP 20; TEMP 97.9; O2SAT 96
[2016-10-12 16:53] LABS: BLOOD, URINE NEG (NEG); GLUCOSE,URINE NEG (NEG); KETONE, URINE 150 mg/dL (NEG); MUCUS URINE FEW /lpf (OCC); NITRITE,URINE NEG (NEG); PH, URINE 5.5 (5.0-8.5); URINE COLOR YELLOW (YELLW/STRAW)
[2016-10-12 16:54] LABS: COMMENT (UR) CATH-CULT NOT IND; CULTURE IF INDICATED CATH CULTURE NOT IND
[2016-10-12] MEDS: CEPHALEXIN MONOHYDRATE 500 MG CAP PO SCH (17:09)
--- NOTE | 2016-10-12 19:34 | HHI.PR ---
Subjective Interval History Awake, responsive, follows simple commands, no visible distress, MRI was done and failed to show any evidence of osteomyelitis Review of Systems Constitutional Constitutional Remarks General weakness, 10 systems reviewed and otherwise negative but not reliable Vitals/Results Intake & Output 10/11/16 10/11/16 10/12/16 15:00 23:00 07:00 Intake Total 850 ml Output Total 580 ml 1300 ml 1000 ml Balance 270 ml -1300 ml -1000 ml IV Total 850 ml Output Urine Total 580 ml 1300 ml 1000 ml Vital Signs Vital Signs Date Time Temp Pulse Resp B/P Pulse Ox O2 Delivery O2 Flow Rate FiO2 10/12/16 16:21 97.9 75 20 139/69 96 10/12/16 11:08 96.8 68 18 175/80 95 10/12/16 08:27 98.0 85 16 184/78 96 10/12/16 04:48 98.0 86 21 194/106 96 10/11/16 23:14 98.4 80 20 179/90 92 10/11/16 19:58 98.4 76 18 170/75 97 CBC/BMP: 10/11/16 0640 10/11/16 0640 Lab Results Laboratory Tests Test 10/12/16 16:17 Urine Color YELLOW Urine Turbidity HAZY Urine pH 5.5 Urine Specific Parlin 1.017 Urine Protein TRACE mg/dL Urine Glucose (UA) NEG mg/dL Urine Ketones 150 mg/dL Urine Occult Blood NEG Urine Nitrite NEG Urine Bilirubin NEG Urine Urobilinogen LESS THAN 2.0 MG/DL Urine Leukocyte Esterase SMALL Urine WBC 1 /hpf Urine Amorphous Sediment RARE Urine Mucus FEW /lpf Microscopic Urinalysis Comment CATH-CULT NOT IND Physical Exam General General Appearance: Comfortable, Obese Eyes Eye Exam: Pupils Reactive Eye Remarks Much improved Bilateral conjunctival congestion, improved drainage around the eyes Ears & Nose Ears & Nose Exam: Nasal Mucosa [place] Throat Throat Exam: Oral Mucosa [place] & Moist Neck Neck Exam: Trachea Midline Neck Remarks Redness along the left lower aspect of the neck, looks improved Pulmonary Resp Exam: Breath Sounds Equal, Crackles Cardiology CV Exam: Normal Sinus Rhythm, Good Perfusion Gastrointestinal/Abdomen GI Exam: Non-Tender, Bowel Sounds Present Musculoskeletal MS Exam: Normal Tone MS Remarks Does not walk, Gauilar catheter in place, Extremeties Extremeties Remarks Black eschar around the right heel with some surrounding redness Neurologic Neuro Exam: Alert, Awake, Moving All Extremities VTE Prophylaxis VTE Prophylaxis Meds: Heparin Assessment/Plan Assessment/Plan Assessment Suspected urinary infection Cellulitis left side of the neck Right heel ulcer with cellulitis, no evidence of osteomyelitis Conjunctivitis Bedridden status Management Continue cefepime Continue vancomycin Ciprofloxacin eyedrops Infectious disease specialist following 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
[2016-10-12] MEDS: LORazepam 0.5 MG TAB PO PRN (20:38)
[2016-10-12 20:46] VITALS: BP 155/77; PULSE 84; RESP 18; TEMP 98.1; O2SAT 97
[2016-10-12] MEDS ORDERED: PHARMACY ORDERED LAB ONE (22:45)
[2016-10-13] VITALS: BP 141/76; PULSE 79; RESP 18; TEMP 97.9; O2SAT 97
[2016-10-13 04:00] VITALS: BP 143/77; PULSE 74; RESP 21; TEMP 97.8; O2SAT 97
[2016-10-13] MEDS: LEVOTHYROXINE SODIUM 75 MCG TAB PO SCH (04:55)
[2016-10-13] MEDS: HEPARIN SODIUM - SQ 10,000 UNITS/ML VIAL SQ SCH ×2 (04:55→18:16)
[2016-10-13] MEDS: CEPHALEXIN MONOHYDRATE 500 MG CAP PO SCH ×5 (04:56→23:08)
[2016-10-13] MEDS: LEVOTHYROXINE SODIUM 100 MCG TAB PO SCH (04:56)
[2016-10-13] MEDS: INSULIN ASPART 1,000 UNITS/10 ML VIAL SQ SCH ×2 (06:17→18:16)
[2016-10-13] MEDS: SODIUM CHLOR 0.45% 1000 ML INJ 1,000 ML IV SCH (07:32)
[2016-10-13] MEDS: ASPIRIN EC 81 MG TABEC PO SCH (07:45)
[2016-10-13] MEDS: COLLAGENASE OINT 30 GM TUBE TOPICAL SCH (07:45)
[2016-10-13] MEDS: CIPROFLOXACIN 0.3% OPTH SOLN 2.5 ML BTL EACH EYE SCH ×4 (09:00→20:17)
[2016-10-13] MEDS: INSULIN DETEMIR 100 UNITS/ML VIAL SQ SCH ×2 (09:00→21:00)
[2016-10-13] MEDS: SODIUM CHLORIDE 0.9% FLUSH 10 ML FLUSH IV FLUSH SCH ×2 (09:00→20:17)
[2016-10-13] MEDS ORDERED: PROPOFOL 200 MG/20 ML AMP IV ONE (10:07)
[2016-10-13] MEDS ORDERED: KETAMINE HCL 500 MG/5 ML VIAL ONE (10:07)
--- NOTE | 2016-10-13 10:15 | HHI.PR ---
Immediate Post Op Note Procedure Date: Oct 13, 2016 Pre Op Diagnosis: R heel ulcer Post Op Diagnosis: Same Surgeon: Lucila Purdy DPM Restaurant Maintenance Technician(s): Staff Procedure: Debridement of wound R heel Findings: Consistent with diagnosis. R posterior distal heel with full-thickness ulceration with central area of necrotic eschar present and peripheral erythema. Measurements after debridement 3.3cm x 2.5cm x 0.2cm depth. No visible achilles tendon noted in wound base. No purulence noted. No visible or palpable bone present. Excisional debridement of all fibrotic and necrotic tissue performed of wound with #15 blade, curettage, down to healthy bleeding subcutaneous tissue. Irrigation NS, Culture taken. Dressing with xeroform, abd, cast padding, azeb bandage. Heel offloading boot reapplied. Continue heel offloading. Await culture results to determine if d/c antibiotics needed. Continue daily santyl, adaptic, 4x4, cling, tape per nursing to R heel. Complications: none Specimen(s) removed: culture R heel Estimated blood loss: minimal Anesthesia: LMA Drains: None IVF Tourniquet time (min at mmHg) n/a Patient to: PACU Patient Condition: Good Date/Time of Procedure: SEE SURGICAL CARE RECORD Lucila Purdy DPM Oct 13, 2016 10:15
[2016-10-13] MEDS ORDERED: fentaNYL CITRATE 250 MCG/5 ML AMP ONE (11:16)
[2016-10-13] MEDS ORDERED: DO NOT ADM ANY ANTICOAGULANT DRUGS PRN (11:45)
[2016-10-13 12:30] VITALS: BP 203/95; PULSE 90; RESP 20; TEMP 98.3; O2SAT 100
[2016-10-13] MEDS: METOPROLOL TARTRATE 50 MG TAB PO SCH ×2 (13:22→20:06)
[2016-10-13] MEDS: MIRTAZAPINE 15 MG TAB PO SCH (13:22)
[2016-10-13] MEDS: cloNIDine HCL 0.1 MG TAB PO PRN (13:23)
[2016-10-13] MEDS: VALSARTAN 160 MG TAB PO SCH (13:24)
[2016-10-13] MEDS: DOCUSATE SODIUM 50 MG/SENNA 8.6 MG TAB PO SCH ×2 (13:45→20:06)
[2016-10-13] MEDS: POTASSIUM CHLORIDE 10 MEQ CONTROLLED RELEASE TAB PO SCH (13:45)
[2016-10-13] MEDS: NYSTATIN/TRIAMCINOLONE CREAM 15 GM TOPICAL SCH ×2 (13:46→20:18)
[2016-10-13 15:30] VITALS: BP 156/67; PULSE 63; RESP 20; TEMP 98; O2SAT 99
--- NOTE | 2016-10-13 18:00 | HHI.PR ---
Review of Systems Constitutional Constitutional Remarks General weakness, 10 systems reviewed and otherwise negative but not reliable Vitals/Results Vital Signs Vital Signs Date Time Temp Pulse Resp B/P Pulse Ox O2 Delivery O2 Flow Rate FiO2 10/13/16 15:30 98.0 63 20 156/67 99 10/13/16 12:30 98.3 90 20 203/95 100 10/13/16 11:45 79 16 160/70 100 Nasal Cannula 3 10/13/16 11:30 90 16 165/80 100 Nasal Cannula 3 10/13/16 11:15 86 16 166/80 100 Nasal Cannula 3 10/13/16 11:02 97.0 84 16 142/79 100 Nasal Cannula 3 10/13/16 04:00 97.8 74 21 143/77 97 10/13/16 00:00 97.9 79 18 141/76 97 10/12/16 20:46 98.1 84 18 155/77 97 CBC/BMP: 10/11/16 0640 10/11/16 0640 Microbiology Microbiology 10/13/16 Gram Stain, Ordered Pending 10/13/16 Wound Culture, Ordered Pending 10/13/16 Acid Fast Stain, Ordered Pending 10/13/16 Mycobacterial Culture, Ordered Pending 10/13/16 Fungal Smear, Ordered Pending 10/13/16 Fungal Culture, Ordered Pending 10/13/16 Gram Stain, Received Pending 10/13/16 Wound Culture, Received Pending 10/13/16 Acid Fast Stain, Received Pending 10/13/16 Mycobacterial Culture, Received Pending 10/13/16 Fungal Smear, Received Pending 10/13/16 Fungal Culture, Received Pending Physical Exam General General Appearance: Comfortable, Obese Eyes Eye Exam: Pupils Reactive Eye Remarks Much improved Bilateral conjunctival congestion, improved drainage around the eyes Ears & Nose Ears & Nose Exam: Nasal Mucosa [place] Throat Throat Exam: Oral Mucosa [place] & Moist Neck Neck Exam: Trachea Midline Neck Remarks Redness along the left lower aspect of the neck, looks improved Pulmonary Resp Exam: Breath Sounds Equal, Crackles Cardiology CV Exam: Normal Sinus Rhythm, Good Perfusion Gastrointestinal/Abdomen GI Exam: Non-Tender, Bowel Sounds Present Musculoskeletal MS Exam: Normal Tone MS Remarks Does not walk, Aguilar catheter in place, Extremeties Extremeties Remarks Black eschar around the right heel with some surrounding redness Neurologic Neuro Exam: Alert, Awake, Moving All Extremities VTE Prophylaxis VTE Prophylaxis Meds: Heparin Assessment/Plan Assessment/Plan Assessment Suspected urinary infection Cellulitis left side of the neck Right heel ulcer with cellulitis, no evidence of osteomyelitis Conjunctivitis Bedridden status Management Continue cefepime Continue vancomycin Ciprofloxacin eyedrops Infectious disease specialist following Return To Factory Clerk following DVT prophylaxis Discussed with infectious disease specialist Discussed with nurse 35 minutes Darryn Brown MD Oct 13, 2016 18:00
--- NOTE | 2016-10-13 18:03 | HHI.PR ---
Subjective Interval History Alert , verbal, just back from the operating room, pain in the buttocks, no complaints otherwise Review of Systems Constitutional Constitutional Remarks General weakness, 10 systems reviewed and otherwise negative but not reliable Vitals/Results Vital Signs Vital Signs Date Time Temp Pulse Resp B/P Pulse Ox O2 Delivery O2 Flow Rate FiO2 10/13/16 15:30 98.0 63 20 156/67 99 10/13/16 12:30 98.3 90 20 203/95 100 10/13/16 11:45 79 16 160/70 100 Nasal Cannula 3 10/13/16 11:30 90 16 165/80 100 Nasal Cannula 3 10/13/16 11:15 86 16 166/80 100 Nasal Cannula 3 10/13/16 11:02 97.0 84 16 142/79 100 Nasal Cannula 3 10/13/16 04:00 97.8 74 21 143/77 97 10/13/16 00:00 97.9 79 18 141/76 97 10/12/16 20:46 98.1 84 18 155/77 97 CBC/BMP: 10/11/16 0640 10/11/16 0640 Microbiology Microbiology 10/13/16 Gram Stain, Ordered Pending 10/13/16 Wound Culture, Ordered Pending 10/13/16 Acid Fast Stain, Ordered Pending 10/13/16 Mycobacterial Culture, Ordered Pending 10/13/16 Fungal Smear, Ordered Pending 10/13/16 Fungal Culture, Ordered Pending 10/13/16 Gram Stain, Received Pending 10/13/16 Wound Culture, Received Pending 10/13/16 Acid Fast Stain, Received Pending 10/13/16 Mycobacterial Culture, Received Pending 10/13/16 Fungal Smear, Received Pending 10/13/16 Fungal Culture, Received Pending Physical Exam General General Appearance: Comfortable, Obese Eyes Eye Exam: Pupils Reactive Eye Remarks Much improved Bilateral conjunctival congestion, improved drainage around the eyes Ears & Nose Ears & Nose Exam: Nasal Mucosa [place] Throat Throat Exam: Oral Mucosa [place] & Moist Neck Neck Exam: Trachea Midline Neck Remarks Redness along the left lower aspect of the neck, looks improved Pulmonary Resp Exam: Breath Sounds Equal, Crackles Cardiology CV Exam: Normal Sinus Rhythm, Good Perfusion Gastrointestinal/Abdomen GI Exam: Non-Tender, Bowel Sounds Present Musculoskeletal MS Exam: Normal Tone MS Remarks Does not walk, Aguilar catheter in place, Extremeties Extremeties Remarks Black eschar around the right heel with some surrounding redness Neurologic Neuro Exam: Alert, Awake, Moving All Extremities VTE Prophylaxis VTE Prophylaxis Meds: Heparin Assessment/Plan Assessment/Plan Assessment Multi-microbial urinary infection Cellulitis left side of the neck, improved Right heel ulcer with cellulitis, no evidence of osteomyelitis Status post debridement on 10/13/16 Conjunctivitis Bedridden status Management Continue Keflex Ciprofloxacin eyedrops Infectious disease and Airframe And Power Plant Mechanic following DVT prophylaxis Discussed with infectious disease specialist Discussed with nurse Discussed with patient's daughter Possible discharge Saturday 35 minutes Darryn Brown MD Oct 13, 2016 18:03
[2016-10-13 20:00] VITALS: BP 194/84; PULSE 81; RESP 18; TEMP 98.7; O2SAT 97
[2016-10-13 21:30] VITALS: BP 188/77
[2016-10-13] MEDS: ENALAPRILAT 1.25 MG/ML VIAL IV PUSH PRN (23:08)
[2016-10-14] VITALS (10 sets, daily range): BP systolic 105–193; BP diastolic 69–82; PULSE 61–88; RESP 17–19; TEMP 97.6–99.3; O2SAT 93–100
[2016-10-14] MEDS ORDERED: ENALAPRILAT 1.25 MG/ML VIAL IV PUSH ONE (02:30)
[2016-10-14] MEDS: INSULIN ASPART 1,000 UNITS/10 ML VIAL SQ SCH ×2 (05:43→16:15)
[2016-10-14] MEDS: HEPARIN SODIUM - SQ 10,000 UNITS/ML VIAL SQ SCH ×2 (05:43→16:15)
[2016-10-14] MEDS: LEVOTHYROXINE SODIUM 100 MCG TAB PO SCH (05:43)
[2016-10-14] MEDS: LEVOTHYROXINE SODIUM 75 MCG TAB PO SCH (05:43)
[2016-10-14] MEDS: CEPHALEXIN MONOHYDRATE 500 MG CAP PO SCH ×4 (05:43→23:12)
[2016-10-14] MEDS: INSULIN DETEMIR 100 UNITS/ML VIAL SQ SCH ×2 (09:00→21:52)
[2016-10-14] MEDS: SODIUM CHLORIDE 0.9% FLUSH 10 ML FLUSH IV FLUSH SCH ×2 (09:00→21:00)
[2016-10-14] MEDS: METOPROLOL TARTRATE 50 MG TAB PO SCH ×2 (10:36→21:44)
[2016-10-14] MEDS: MIRTAZAPINE 15 MG TAB PO SCH (10:36)
[2016-10-14] MEDS: VALSARTAN 160 MG TAB PO SCH (10:36)
[2016-10-14] MEDS: ASPIRIN EC 81 MG TABEC PO SCH (10:36)
[2016-10-14] MEDS: DOCUSATE SODIUM 50 MG/SENNA 8.6 MG TAB PO SCH ×2 (10:36→21:44)
[2016-10-14] MEDS: POTASSIUM CHLORIDE 10 MEQ CONTROLLED RELEASE TAB PO SCH (10:36)
[2016-10-14] MEDS: CIPROFLOXACIN 0.3% OPTH SOLN 2.5 ML BTL EACH EYE SCH ×4 (10:37→21:55)
[2016-10-14] MEDS: COLLAGENASE OINT 30 GM TUBE TOPICAL SCH (10:38)
[2016-10-14] MEDS: NYSTATIN/TRIAMCINOLONE CREAM 15 GM TOPICAL SCH ×2 (10:38→21:56)
[2016-10-14] MEDS: SODIUM CHLOR 0.45% 1000 ML INJ 1,000 ML IV SCH (15:48)
--- NOTE | 2016-10-14 15:56 | HHI.PR ---
Subjective Interval History Alert, responsive, distracted, complaining of shortness of breath, less focused than yesterday Review of Systems Constitutional Constitutional Remarks General weakness, shortness of breath, wheezing, 10 systems reviewed and otherwise negative but not reliable Vitals/Results Intake & Output 10/13/16 10/13/16 10/14/16 15:00 23:00 07:00 Intake Total 200 ml 240 ml 583 ml Output Total 1360 ml 200 ml 400 ml Balance -1160 ml 40 ml 183 ml Intake Oral 100 ml 240 ml 240 ml IV Total 0 ml 343 ml Other 100 ml Output Urine Total 450 ml 200 ml 400 ml Estimated Blood Loss 10 ml Other 900 ml # Bowel Movements 0 Vital Signs Vital Signs Date Time Temp Pulse Resp B/P Pulse Ox O2 Delivery O2 Flow Rate FiO2 10/14/16 12:06 97.6 80 19 183/82 93 10/14/16 08:00 99.2 79 19 174/74 97 10/14/16 04:00 99.0 76 19 172/72 96 Manual Cuff/Auscultation 10/14/16 02:30 170/69 10/14/16 01:56 70 184/74 193/79 10/14/16 01:06 75 181/79 10/14/16 00:00 98.8 88 19 191/81 98 10/13/16 21:30 188/77 10/13/16 20:00 98.7 81 18 194/84 97 CBC/BMP: 10/11/16 0640 10/11/16 0640 Physical Exam General General Appearance: Well Developed, Comfortable, Obese Eyes Eye Exam: Pupils Reactive Eye Remarks Much improved Bilateral conjunctival congestion, improved drainage around the eyes Ears & Nose Ears & Nose Exam: Nasal Mucosa [place] Throat Throat Exam: Oral Mucosa [place] & Moist Neck Neck Exam: Trachea Midline Neck Remarks Redness along the left lower aspect of the neck, looks improved Pulmonary Resp Exam: Crackles Resp Remarks Wheezing bilaterally Cardiology CV Exam: Normal Sinus Rhythm, Good Perfusion Gastrointestinal/Abdomen GI Exam: Non-Tender, Bowel Sounds Present Musculoskeletal MS Exam: Normal Tone Integumentary Skin Remarks Intertrigo in the perianal area Extremeties Extremities Exam: Trace Edema Extremeties Remarks Black eschar around the right heel with some surrounding redness Neurologic Neuro Exam: Alert, Awake, Moving All Extremities VTE Prophylaxis VTE Prophylaxis Meds: Heparin Assessment/Plan Assessment/Plan Assessment Wheezing Dyspnea Edema in the ankles Multi-microbial urinary infection Cellulitis left side of the neck, improved Right heel ulcer with cellulitis, no evidence of osteomyelitis Status post debridement on 10/13/16 Conjunctivitis Bedridden status Management Chest x-ray Lasix 40 mg IV 1 DuoNeb 4 times a day Continue Keflex Ciprofloxacin eyedrops Infectious disease and Rn Psych following DVT prophylaxis Discussed with nurse Discussed with patient's daughter Possible discharge in 1-2 days 35 minutes Discussed Condition with: Patient, Daughter Darryn Brown MD Oct 14, 2016 15:56
[2016-10-14] MEDS ORDERED: FUROSEMIDE 20 MG/2 ML VIAL IV PUSH ONE (16:00)
--- NOTE | 2016-10-14 16:19 | RADRPT ---
EXAM DATE/TIME: 10/14/2016 15:54 [facility] COMPARISON: CHEST SINGLE AP, October 10, 2016, 13:13. INDICATIONS : Wheezing, Cough. MEDICAL HISTORY : Chronic obstructive pulmonary disease. SURGICAL HISTORY : coronary artery stent. ENCOUNTER: Subsequent ACUITY: 4 - 6 days PAIN SCORE: 0/10 LOCATION: Bilateral chest FINDINGS: The lungs are clear without infiltrate, nodule, or mass. There is no appreciable pleural effusion fo r technique. Heart and mediastinum are unremarkable. There are atherosclerotic calcifications of the aorta due to chronic atherosclerotic disease. CONCLUSION: No acute cardiopulmonary disease. Jarrett Balderrama MD on October 14, 2016 at 16:17 Board Certified Radiologist. This report was verified electronically.
[2016-10-14] MEDS: cloNIDine HCL 0.1 MG TAB PO PRN (16:42)
[2016-10-14] MEDS: LORazepam 0.5 MG TAB PO PRN (18:17)
[2016-10-14] MEDS: RESP: ALBUTEROL 2.5 MG/IPRATROPIUM 0.5 MG NEB (SCH) NEB (20:02)
[2016-10-15] VITALS (7 sets, daily range): BP systolic 129–153; BP diastolic 60–80; PULSE 59–99; RESP 17–18; TEMP 98.7–99.6; O2SAT 92–97
[2016-10-15] MEDS: INSULIN ASPART 1,000 UNITS/10 ML VIAL SQ SCH ×2 (05:30→16:00)
[2016-10-15] MEDS: HEPARIN SODIUM - SQ 10,000 UNITS/ML VIAL SQ SCH ×2 (05:30→17:42)
[2016-10-15] MEDS: CEPHALEXIN MONOHYDRATE 500 MG CAP PO SCH ×4 (06:35→23:41)
[2016-10-15] MEDS: LEVOTHYROXINE SODIUM 100 MCG TAB PO SCH (06:36)
[2016-10-15] MEDS: LEVOTHYROXINE SODIUM 75 MCG TAB PO SCH (06:36)
[2016-10-15] MEDS: RESP: ALBUTEROL 2.5 MG/IPRATROPIUM 0.5 MG NEB (SCH) NEB ×2 (08:00→11:10)
[2016-10-15] MEDS: ASPIRIN EC 81 MG TABEC PO SCH (08:20)
[2016-10-15] MEDS: VALSARTAN 160 MG TAB PO SCH (08:20)
[2016-10-15] MEDS: MIRTAZAPINE 15 MG TAB PO SCH (08:20)
[2016-10-15] MEDS: DOCUSATE SODIUM 50 MG/SENNA 8.6 MG TAB PO SCH ×2 (08:20→21:33)
[2016-10-15] MEDS: POTASSIUM CHLORIDE 10 MEQ CONTROLLED RELEASE TAB PO SCH (08:20)
[2016-10-15] MEDS: METOPROLOL TARTRATE 50 MG TAB PO SCH ×2 (08:20→21:32)
[2016-10-15] MEDS: COLLAGENASE OINT 30 GM TUBE TOPICAL SCH (08:20)
[2016-10-15] MEDS: NYSTATIN/TRIAMCINOLONE CREAM 15 GM TOPICAL SCH ×2 (08:21→21:33)
[2016-10-15] MEDS: SODIUM CHLORIDE 0.9% FLUSH 10 ML FLUSH IV FLUSH SCH ×2 (08:23→21:32)
[2016-10-15] MEDS: NIFEdipine 30 MG SUSTAINED RELEASE TAB PO SCH (08:23)
[2016-10-15] MEDS: CIPROFLOXACIN 0.3% OPTH SOLN 2.5 ML BTL EACH EYE SCH ×4 (08:23→21:33)
[2016-10-15] MEDS: INSULIN DETEMIR 100 UNITS/ML VIAL SQ SCH ×2 (08:24→21:00)
[2016-10-15] MEDS: cloNIDine HCL 0.1 MG/24 HR PATCH T-DERMAL SCH (08:24)
[2016-10-15] MEDS: REMOVE OLD CATAPRES (CLONIDINE) PATCH T-DERMAL SCH (09:00)
--- NOTE | 2016-10-15 12:29 | HHI.IDPN ---
Note Infectious Disease Note Patient without complaints. Appears comfortable. Afebrile. Urine cloudy in ardon catheter. Post debridement of r. heel. PAST MEDICAL HISTORY: 1. Multiple sclerosis. 2. Hypertension. 3. Hypothyroidism. 4. Hypercholesterolemia. 5. Anemia. 6. History of CVA with residual right-sided weakness. ALLERGIES: NO KNOWN DRUG ALLERGIES. MEDICATIONS: 1. Keflex 2. Ciprofloxacin eye drops. SOCIAL HISTORY: [place] resident. No tobacco. No alcohol. No illicit drugs. OBJECTIVE: Vital Signs Date Time Temp Pulse Resp B/P Pulse Ox O2 Delivery O2 Flow Rate FiO2 10/15/16 11:06 92 10/15/16 08:00 98.7 59 136/80 95 10/15/16 04:00 99.6 71 17 139/62 94 10/15/16 00:00 99.3 63 17 129/60 97 10/14/16 20:05 95 21 10/14/16 20:00 99.3 80 18 171/71 95 10/14/16 16:25 99.2 79 19 187/74 95 10/14/16 10/14/16 10/15/16 15:00 23:00 07:00 Intake Total 600 ml 415 ml 648 ml Output Total 600 ml 300 ml 100 ml Balance 0 ml 115 ml 548 ml Intake Oral 600 ml 240 ml 60 ml IV Total 175 ml 588 ml Output Urine Total 600 ml 300 ml 100 ml # Bowel Movements 1 Microbiology Date/Time Procedure Status Source Growth 10/13/16 10:42 Gram Stain Ordered Abscess Heel Pending 10/13/16 10:42 Wound Culture Ordered Abscess Heel Pending 10/13/16 10:42 Acid Fast Stain Ordered Abscess Heel Pending 10/13/16 10:42 Mycobacterial Culture Ordered Abscess Heel Pending 10/13/16 10:42 Fungal Smear Ordered Abscess Heel Pending 10/13/16 10:42 Fungal Culture Ordered Abscess Heel Pending 10/13/16 10:42 Gram Stain - Final Resulted Wound Heel 10/13/16 10:42 Wound Culture - Preliminary Resulted Wound Heel RARE GROWTH NORMAL SKIN SATISH... 10/13/16 10:42 Acid Fast Stain Received Wound Heel Pending 10/13/16 10:42 Mycobacterial Culture Received Wound Heel Pending 10/13/16 10:42 Fungal Smear Received Wound Heel Pending 10/13/16 10:42 Fungal Culture Received Wound Heel Pending IMAGING: Foot MRI 10/11/16 0000 Signed Impressions: Service Date/Time: September 18:49 - CONCLUSION: No definite signs of osteomyelitis or abscess. Jarrett Balderrama MD Head CT 10/10/16 1228 Signed Impressions: Service Date/Time: Monday, October 10, 2016 13:34 - CONCLUSION: Chronic and small vessel ischemic changes without any evidence for acute hemorrhage or mass effect. Jarrett Balderrama MD Chest X-Ray 10/10/16 1228 Signed Impressions: Service Date/Time: Monday, October 10, 2016 13:13 - CONCLUSION: No acute disease. Georges Valdes Jr., MD PHYSICAL EXAMINATION: GENERAL: No acute distress. Awake, alert and responsive. HEENT: Head atraumatic. The face is mildly erythematous diffusely. Extraocular movements grossly intact. Pupils reactive to light. No icterus. mild conjunctival erythema. Oropharynx has no visible lesions. NECK: The neck is supple. Erythema at the neck. LUNGS: Decreased breath sounds, clear. HEART: Regular S1 and S2. ABDOMEN: Soft, nontender. EXTREMITIES: The left heel is post debridement with surgical dressing in place. NEUROLOGIC: Awake and alert. SKIN: No diffuse rash. PSYCHIATRIC: The patient is pleasant. IMPRESSION: 1. 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 2. Urinary tract infection vs colonization. Urine culture has 3 different bacteria which makes colonization more likely. 3. erythema at the face does not appear to be cellulitis. RECOMMENDATIONS: 1. Continue Keflex. 2. Repeat urine culture. 3. Monitor the heel surgical wound culture. oSm Pandey MD Oct 15, 2016 12:29
--- NOTE | 2016-10-15 14:46 | HHI.PR ---
Subjective Interval History Alert, verbal, mildly confused, no trouble breathing at this time, Review of Systems Constitutional Constitutional Remarks General weakness, 10 systems reviewed and otherwise negative but not reliable Vitals/Results Intake & Output 10/14/16 10/14/16 10/15/16 15:00 23:00 07:00 Intake Total 600 ml 415 ml 648 ml Output Total 600 ml 300 ml 100 ml Balance 0 ml 115 ml 548 ml Intake Oral 600 ml 240 ml 60 ml IV Total 175 ml 588 ml Output Urine Total 600 ml 300 ml 100 ml # Bowel Movements 1 Vital Signs Vital Signs Date Time Temp Pulse Resp B/P Pulse Ox O2 Delivery O2 Flow Rate FiO2 10/15/16 12:00 98.8 71 18 136/63 93 10/15/16 11:06 92 10/15/16 08:00 98.7 59 136/80 95 10/15/16 04:00 99.6 71 17 139/62 94 10/15/16 00:00 99.3 63 17 129/60 97 10/14/16 20:05 95 21 10/14/16 20:00 99.3 80 18 171/71 95 10/14/16 16:25 99.2 79 19 187/74 95 CBC/BMP: 10/11/16 0640 10/11/16 0640 Physical Exam General General Appearance: Well Developed, Comfortable, Obese Eyes Eye Exam: Pupils Reactive Eye Remarks Much improved Bilateral conjunctival congestion, improved drainage around the eyes Ears & Nose Ears & Nose Exam: Nasal Mucosa [place] Throat Throat Exam: Oral Mucosa [place] & Moist Neck Neck Exam: Trachea Midline Neck Remarks Redness along the left lower aspect of the neck, looks improved Pulmonary Resp Exam: Crackles Resp Remarks Wheezing bilaterally Cardiology CV Exam: Normal Sinus Rhythm, Good Perfusion Gastrointestinal/Abdomen GI Exam: Non-Tender, Bowel Sounds Present Musculoskeletal MS Exam: Normal Tone Integumentary Skin Remarks Intertrigo in the perianal area Extremeties Extremities Exam: Trace Edema Extremeties Remarks Black eschar around the right heel with some surrounding redness Neurologic Neuro Exam: Alert, Awake, Moving All Extremities VTE Prophylaxis VTE Prophylaxis Meds: Heparin Assessment/Plan Assessment/Plan Assessment Wheezing, improved Dyspnea, improved Edema in the ankles, improved Multi-microbial urinary infection, culture showing MRSA/Proteus/Escherichia coli Cellulitis left side of the neck, improved Right heel ulcer with cellulitis, no evidence of osteomyelitis Status post debridement on 10/13/16 Conjunctivitis Bedridden status Management Discussed with infectious disease specialist Antibiotics will be addressed DuoNeb 4 times a day, as needed Possible discharge late tomorrow Infectious disease and Grinding Wheel Operator following DVT prophylaxis Discussed with nurse Discussed with patient, I doubt that she understood Possible discharge in 1-2 days 35 minutes Darryn Brown MD Oct 15, 2016 14:46
[2016-10-15] MEDS ORDERED: RESP: ALBUTEROL 2.5 MG/IPRATROPIUM 0.5 MG NEB (PRN) NEB (15:00)
[2016-10-15 17:32] LABS: BACTERIA, URINE FEW /hpf; BLOOD, URINE TRACE (NEG); GLUCOSE,URINE NEG (NEG); HYALINE CAST, URINE 2 /lpf (RARE); KETONE, URINE NEG (NEG); MUCUS URINE FEW /lpf (OCC); NITRITE,URINE NEG (NEG); PH, URINE 5.5 (5.0-8.5); SQUAMOUS EPITHELIAL CELL URINE <1 /hpf (0-5); URINE COLOR YELLOW (YELLW/STRAW)
[2016-10-15 17:40] LABS: COMMENT (UR) CATH-CULTURE IND; CULTURE IF INDICATED CATH CULTURE IND
[2016-10-15] MEDS: LORazepam 0.5 MG TAB PO PRN (19:38)
[2016-10-15] MEDS: cloNIDine HCL 0.1 MG TAB PO PRN (23:41)
[2016-10-16] VITALS (8 sets, daily range): BP systolic 144–191; BP diastolic 65–77; PULSE 55–69; RESP 18–20; TEMP 96.4–100; O2SAT 94–96
[2016-10-16] MEDS: CEPHALEXIN MONOHYDRATE 500 MG CAP PO SCH ×2 (06:12→10:34)
[2016-10-16] MEDS: HEPARIN SODIUM - SQ 10,000 UNITS/ML VIAL SQ SCH ×2 (06:12→17:57)
[2016-10-16] MEDS: LEVOTHYROXINE SODIUM 75 MCG TAB PO SCH (06:12)
[2016-10-16] MEDS: LEVOTHYROXINE SODIUM 100 MCG TAB PO SCH (06:13)
[2016-10-16] MEDS: INSULIN ASPART 1,000 UNITS/10 ML VIAL SQ SCH ×2 (06:15→16:00)
[2016-10-16] MEDS: METOPROLOL TARTRATE 50 MG TAB PO SCH ×2 (09:00→22:14)
--- NOTE | 2016-10-16 10:07 | MP ---
cc: LUCILA DUNCAN DPAlexis DATE OF SURGERY: 10/13/2016 INDICATION This patient presented to the emergency department with an infected ulcer to her right heel with erythema around it. She underwent IV antibiotics and the erythema did recede. It was noted that she has a small area of necrotic tissue in the center of the wound. I discussed with the patient and her daughter that I felt the patient would benefit from debridement of the area versus continuing enzymatic debridement which would be much slower and they consented to undergo debridement of wound right heel. DETAILS OF PROCEDURE The patient was seen in pre-op holding by myself, nursing staff and Anesthesia where the correct patient, side and site were all confirmed to be correct in the right heel. The patient was taken back to the surgical suite in supine position. The right foot was prepped and draped in normal sterile fashion followed by attention directed to the right heel. A right posterior and distal heel ulcer was noted full-thickness with a central area of necrotic eschar present and peripheral mild erythema. There was no purulence noted at this time, no bogginess, no fluctuance beneath the eschar. Measurements after debridement were 2.5 cm x 2.2 cm x 0.3 cm in depth with no visible Achilles tendon in the wound base. There was noted to be healthy bleeding subcutaneous tissue present with no visible or palpable bone present as well. Excisional debridement was performed of all fibrotic and necrotic tissue of the wound with a #15 blade as well as curettage and rongeur down to healthy bleeding subcutaneous tissue followed by irrigation with 3 liters normal saline. Culture was taken of the wound followed by dressing consisting of Xeroform, ABD, cast padding, Erich bandage, and the heel was offloaded in her offloading Multi Podus boot which is re-applied to the right heel. She tolerated the procedure well and anesthesia well without complications and was taken back to PACU with vital signs stable and vascular status intact to the remainder of the right foot. We will await culture results to determine if further antibiotics are needed upon discharge from the hospital. SHORT OPERATIVE NOTE SURGEON Lucila Duncan. SPRAY MACHINE OPERATOR Staff. PREOPERATIVE DIAGNOSIS Right heel wound infected. POSTOPERATIVE DIAGNOSIS Right heel wound infected. PROCEDURE Debridement of wound right heel. PATHOLOGY Culture right heel. ESTIMATED BLOOD LOSS Minimal. COMPLICATIONS None. ANESTHESIA LMA. CONDITION Stable to PACU. TOURNIQUET TIME No tourniquet utilized. DISPOSITION Non-weightbearing right heel with offloading to continue daily. Will continue Santyl dressing changes daily. Follow-up in clinic as an outpatient in 2 weeks. Lucila VARGAS /5:24 PM /10:03 AM
[2016-10-16] MEDS: POTASSIUM CHLORIDE 10 MEQ CONTROLLED RELEASE TAB PO SCH (10:34)
[2016-10-16] MEDS: VALSARTAN 160 MG TAB PO SCH (10:34)
[2016-10-16] MEDS: MIRTAZAPINE 15 MG TAB PO SCH (10:34)
[2016-10-16] MEDS: NIFEdipine 30 MG SUSTAINED RELEASE TAB PO SCH (10:35)
[2016-10-16] MEDS: DOCUSATE SODIUM 50 MG/SENNA 8.6 MG TAB PO SCH ×2 (10:35→22:14)
[2016-10-16] MEDS: LORazepam 0.5 MG TAB PO PRN ×2 (10:35→22:15)
[2016-10-16] MEDS: CIPROFLOXACIN 0.3% OPTH SOLN 2.5 ML BTL EACH EYE SCH ×4 (10:36→22:15)
[2016-10-16] MEDS: COLLAGENASE OINT 30 GM TUBE TOPICAL SCH (10:36)
[2016-10-16] MEDS: NYSTATIN/TRIAMCINOLONE CREAM 15 GM TOPICAL SCH ×2 (10:36→22:16)
[2016-10-16] MEDS: SODIUM CHLORIDE 0.9% FLUSH 10 ML FLUSH IV FLUSH SCH ×2 (10:38→22:15)
[2016-10-16] MEDS: ASPIRIN EC 81 MG TABEC PO SCH (10:41)
[2016-10-16] MEDS: INSULIN DETEMIR 100 UNITS/ML VIAL SQ SCH (10:50)
[2016-10-16] MEDS: FLUCONAZOLE 100 MG TAB PO SCH (14:00)
[2016-10-16] MEDS ORDERED: GLUCAGON 1 MG/ML VIAL OTHER PRN (14:45)
[2016-10-16] MEDS ORDERED: ACETAMINOPHEN 1000 MG/100 ML VIAL IV PRN (14:45)
[2016-10-16] MEDS ORDERED: DEXTROSE 50% IN WATER 50 ML VIAL(D50) IV PRN (14:45)
[2016-10-16] MEDS: INSULIN ASPART SUPPLEMENTAL SCALE SQ SCH ×2 (16:00→21:00)
[2016-10-16] MEDS ORDERED: Vancomycin Consult Pharmacy 1 EA OTHER SCH (16:15)
--- NOTE | 2016-10-16 16:18 | HHI.IDPN ---
Note Infectious Disease Note Patient is very somnolent and not currently arousing. Received Ativan a few hours ago for agitation. has low grade fever. Wound culture from heel has MRSA. Urine culture has Leonor. PAST MEDICAL HISTORY: 1. Multiple sclerosis. 2. Hypertension. 3. Hypothyroidism. 4. Hypercholesterolemia. 5. Anemia. 6. History of CVA with residual right-sided weakness. ALLERGIES: NO KNOWN DRUG ALLERGIES. ANTIBIOTICS:: 1. Keflex 2. Ciprofloxacin eye drops. 3. Fluconazole started earlier today. OBJECTIVE: Vital Signs Date Time Temp Pulse Resp B/P Pulse Ox O2 Delivery O2 Flow Rate FiO2 10/16/16 14:24 99.3 10/16/16 12:00 96.9 67 18 151/65 95 10/16/16 08:00 98.6 56 18 144/65 96 10/16/16 05:08 100.0 62 18 144/67 94 10/16/16 04:30 99.9 10/16/16 00:25 99.3 69 18 191/77 96 10/15/16 20:54 99.6 70 18 153/60 93 10/15/16 10/15/16 10/16/16 14:59 22:59 06:59 Intake Total 210 ml 40 ml Output Total 100 ml Balance 210 ml -60 ml Intake Oral 210 ml 40 ml Output Urine Total 100 ml Microbiology Date/Time Procedure Status Source Growth 10/15/16 15:15 Urine Culture - Preliminary Resulted Urine Catheterized Urine Yeast Species IMAGING: Chest X-Ray 10/14/16 0000 Signed Impressions: Service Date/Time: Friday, October 14, 2016 15:54 - CONCLUSION: No acute cardiopulmonary disease. Jarrett Balderrama MD PHYSICAL EXAMINATION: GENERAL: Somnolent non responsive. HEENT: No icterus. mild conjunctival erythema. Oropharynx has no visible lesions. NECK: Supple. LUNGS: Decreased breath sounds. HEART: Regular S1 and S2. ABDOMEN: Soft, nontender. EXTREMITIES: The left heel is post debridement with surgical dressing in place. NEUROLOGIC: Non responsive. SKIN: No diffuse rash. IMPRESSION: 1. 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 MRSA (+) culture. 2. Urinary tract infection - leonor. 3. erythema at the face does not appear to be cellulitis. 4. AMS due to medication - Ativan. RECOMMENDATIONS: 1. Stop Keflex. 2. Treat MRSA with Vancomycin. 3. Continue Fluconazole for yeast. 4. Check CBC and BMP. Som Pandey MD Oct 16, 2016 16:18
--- NOTE | 2016-10-16 17:29 | HHI.PR ---
Subjective Interval History Alert, confused, , no specific complaints from patient, sugar level was low, detemir was withheld as morning Review of Systems Constitutional Constitutional Remarks Not reliable Vitals/Results Intake & Output 10/15/16 10/15/16 10/16/16 15:00 23:00 07:00 Intake Total 210 ml 40 ml Output Total 100 ml Balance 110 ml 40 ml Intake Oral 210 ml 40 ml Output Urine Total 100 ml Vital Signs Vital Signs Date Time Temp Pulse Resp B/P Pulse Ox O2 Delivery O2 Flow Rate FiO2 10/16/16 16:00 96.4 55 20 152/70 96 10/16/16 14:24 99.3 10/16/16 12:00 96.9 67 18 151/65 95 10/16/16 08:00 98.6 56 18 144/65 96 10/16/16 05:08 100.0 62 18 144/67 94 10/16/16 04:30 99.9 10/16/16 00:25 99.3 69 18 191/77 96 10/15/16 20:54 99.6 70 18 153/60 93 Physical Exam General General Appearance: Well Developed, Anxious, Obese Eyes Eye Exam: Pupils Reactive Eye Remarks Much improved Bilateral conjunctival congestion, improved drainage around the eyes Ears & Nose Ears & Nose Exam: Nasal Mucosa [place] Throat Throat Exam: Oral Mucosa [place] & Moist Neck Neck Exam: Trachea Midline Pulmonary Resp Exam: Crackles Resp Remarks Wheezing bilaterally Cardiology CV Exam: Normal Sinus Rhythm, Good Perfusion Gastrointestinal/Abdomen GI Exam: Non-Tender, Bowel Sounds Present Musculoskeletal MS Exam: Normal Tone Integumentary Skin Remarks Intertrigo in the perianal area Extremeties Extremities Exam: Trace Edema Extremeties Remarks right heel in surgical dressing Neurologic Neuro Exam: Alert, Awake, Moving All Extremities VTE Prophylaxis VTE Prophylaxis Meds: Heparin Assessment/Plan Assessment/Plan Assessment MRSA reported in the right foot wound Dyspnea, improved Multi-microbial urinary infection, culture showing MRSA/Proteus/Escherichia coli Cellulitis left side of the neck, improved Right heel ulcer with cellulitis, no evidence of osteomyelitis Status post debridement on 10/13/16 Conjunctivitis Bedridden status Management DuoNeb 4 times a day, as needed Possible discharge late tomorrow We will follow advice from ID Infectious disease and House Father following DVT prophylaxis Discussed with nurse Discussed with patient, I doubt that she understood 35 minutes Darryn Borwn MD Oct 16, 2016 17:29
[2016-10-16] MEDS: VANCOMYCIN INJ 1,500 MG in SODIUM CHLORID 0.9% 500 ML INJ 500 ML IV SCH (17:57)
[2016-10-17] VITALS: BP 154/70; PULSE 64; RESP 16; TEMP 96.5; O2SAT 97
[2016-10-17 04:00] VITALS: BP 160/68; PULSE 65; RESP 16; TEMP 96.1; O2SAT 100
[2016-10-17] MEDS: HEPARIN SODIUM - SQ 10,000 UNITS/ML VIAL SQ SCH ×2 (06:14→17:35)
[2016-10-17] MEDS: VANCOMYCIN INJ 1,500 MG in SODIUM CHLORID 0.9% 500 ML INJ 500 ML IV SCH ×2 (06:14→17:35)
[2016-10-17] MEDS: INSULIN ASPART 1,000 UNITS/10 ML VIAL SQ SCH (06:16)
[2016-10-17] MEDS: INSULIN ASPART SUPPLEMENTAL SCALE SQ SCH ×4 (06:16→20:25)
[2016-10-17] MEDS: LEVOTHYROXINE SODIUM 75 MCG TAB PO SCH (06:33)
[2016-10-17] MEDS: LEVOTHYROXINE SODIUM 100 MCG TAB PO SCH (06:34)
[2016-10-17 07:43] LABS: AUTOMATED NEUTROPHIL # 3.5 TH/MM3 (1.8-7.7); BASOPHIL # 0.1 TH/MM3 (0-0.2); BASOPHIL % 0.9 % (0.0-2.0); EOSINOPHIL # 0.3 TH/MM3 (0-0.4); EOSINOPHIL % 5.1 % (0.0-4.0); HEMATOCRIT 36.6 % (35.0-46.0); HEMO FLAGS DIFF FINAL; LYMPH % 23.2 % (9.0-44.0); LYMPHOCYTE # 1.4 TH/MM3 (1.0-4.8); MEAN CELL VOLUME 76.7 FL (80.0-100.0); MEAN CORPUSCULAR HEMOGLOBIN 25.7 PG (27.0-34.0); MEAN CORPUSCULAR HGB CONC 33.5 % (32.0-36.0); MONO % 12.8 % (0.0-8.0); PLATELET COUNT 155 TH/MM3 (150-450); RED BLOOD COUNT 4.78 MIL/MM3 (4.00-5.30); RED CELL DISTRIBUTION WIDTH 17.3 % (11.6-17.2)
[2016-10-17 07:52] LABS: BICARBONATE 24.5 MEQ/L (21.0-32.0); POTASSIUM 3.7 MEQ/L (3.5-5.1)
[2016-10-17] MEDS: RESP: ALBUTEROL 2.5 MG/IPRATROPIUM 0.5 MG NEB (PRN) NEB ×2 (07:55→19:49)
[2016-10-17 08:00] VITALS: BP 136/63; PULSE 80; RESP 20; TEMP 98.7; O2SAT 96
[2016-10-17] MEDS: DOCUSATE SODIUM 50 MG/SENNA 8.6 MG TAB PO SCH ×3 (08:50→09:06)
[2016-10-17] MEDS: VALSARTAN 160 MG TAB PO SCH ×3 (08:50→09:01)
[2016-10-17] MEDS: MIRTAZAPINE 15 MG TAB PO SCH ×3 (08:51→09:02)
[2016-10-17] MEDS: FUROSEMIDE 20 MG TAB PO SCH ×4 (08:51→17:35)
[2016-10-17] MEDS: ASPIRIN EC 81 MG TABEC PO SCH ×3 (08:51→09:01)
[2016-10-17] MEDS: NIFEdipine 30 MG SUSTAINED RELEASE TAB PO SCH ×3 (08:51→09:02)
[2016-10-17] MEDS: POTASSIUM CHLORIDE 10 MEQ CONTROLLED RELEASE TAB PO SCH ×3 (08:51→09:02)
[2016-10-17] MEDS: METOPROLOL TARTRATE 50 MG TAB PO SCH ×3 (08:51→09:07)
[2016-10-17] MEDS: CIPROFLOXACIN 0.3% OPTH SOLN 2.5 ML BTL EACH EYE SCH ×2 (08:51→12:00)
[2016-10-17] MEDS: COLLAGENASE OINT 30 GM TUBE TOPICAL SCH (08:52)
[2016-10-17] MEDS: NYSTATIN/TRIAMCINOLONE CREAM 15 GM TOPICAL SCH ×2 (08:52→20:18)
[2016-10-17] MEDS: SODIUM CHLORIDE 0.9% FLUSH 10 ML FLUSH IV FLUSH SCH ×2 (08:52→20:19)
[2016-10-17] MEDS: INSULIN DETEMIR 100 UNITS/ML VIAL SQ SCH (08:53)
[2016-10-17] MEDS: FLUCONAZOLE 100 MG TAB PO SCH (11:59)
[2016-10-17 12:30] VITALS: BP 153/65; PULSE 75; RESP 19; TEMP 96.7; O2SAT 97
--- NOTE | 2016-10-17 13:48 | HHI.PR ---
Subjective Interval History Alert, verbal, confused, denies complaints, not ambulating, blood sugar was 60 earlier today and then 130 Review of Systems Constitutional Constitutional Remarks Not reliable Vitals/Results Intake & Output 10/16/16 10/16/16 10/17/16 15:00 23:00 07:00 Intake Total 40 ml 200 ml 160 ml Output Total 200 ml Balance -160 ml 200 ml 160 ml Intake Oral 40 ml 200 ml 160 ml Output Urine Total 200 ml # Voids 0 # Bowel Movements 0 Vital Signs Vital Signs Date Time Temp Pulse Resp B/P Pulse Ox O2 Delivery O2 Flow Rate FiO2 10/17/16 12:30 96.7 75 19 153/65 97 10/17/16 08:00 98.7 80 20 136/63 96 10/17/16 04:00 96.1 65 16 160/68 100 10/17/16 00:00 96.5 64 16 154/70 97 10/16/16 20:00 97.2 68 18 148/72 96 10/16/16 16:00 96.4 55 20 152/70 96 10/16/16 14:24 99.3 CBC/BMP: 10/17/16 0612 10/17/16 0612 Lab Results Laboratory Tests Test 10/17/16 06:12 White Blood Count 6.0 TH/MM3 Red Blood Count 4.78 MIL/MM3 Hemoglobin 12.3 GM/DL Hematocrit 36.6 % Mean Corpuscular Volume 76.7 FL Mean Corpuscular Hemoglobin 25.7 PG Mean Corpuscular Hemoglobin 33.5 % Concent Red Cell Distribution Width 17.3 % Platelet Count 155 TH/MM3 Mean Platelet Volume 8.7 FL Neutrophils (%) (Auto) 58.0 % Lymphocytes (%) (Auto) 23.2 % Monocytes (%) (Auto) 12.8 % Eosinophils (%) (Auto) 5.1 % Basophils (%) (Auto) 0.9 % Neutrophils # (Auto) 3.5 TH/MM3 Lymphocytes # (Auto) 1.4 TH/MM3 Monocytes # (Auto) 0.8 TH/MM3 Eosinophils # (Auto) 0.3 TH/MM3 Basophils # (Auto) 0.1 TH/MM3 CBC Comment DIFF FINAL Differential Comment Sodium Level 144 MEQ/L Potassium Level 3.7 MEQ/L Chloride Level 111 MEQ/L Carbon Dioxide Level 24.5 MEQ/L Anion Gap 9 MEQ/L Blood Urea Nitrogen 13 MG/DL Creatinine 0.46 MG/DL Estimat Glomerular Filtration 134 ML/MIN Rate Random Glucose 60 MG/DL Calcium Level 8.5 MG/DL Physical Exam General General Appearance: Well Developed, Anxious, Obese Eyes Eye Exam: Pupils Reactive Eye Remarks Much improved Bilateral conjunctival congestion, improved drainage around the eyes Ears & Nose Ears & Nose Exam: Nasal Mucosa [place] Throat Throat Exam: Oral Mucosa [place] & Moist Neck Neck Exam: Trachea Midline Pulmonary Resp Exam: Crackles Resp Remarks Wheezing bilaterally Cardiology CV Exam: Normal Sinus Rhythm, Good Perfusion Gastrointestinal/Abdomen GI Exam: Non-Tender, Bowel Sounds Present Musculoskeletal MS Exam: Normal Tone Integumentary Skin Remarks Intertrigo in the perianal area Extremeties Extremities Exam: Trace Edema Extremeties Remarks right heel in surgical dressing Neurologic Neuro Exam: Alert, Awake, Moving All Extremities VTE Prophylaxis VTE Prophylaxis Meds: Heparin Assessment/Plan Assessment/Plan Assessment Hypoglycemia MRSA reported in the right foot wound Dyspnea, improved Multi-microbial urinary infection, culture showing MRSA/Proteus/Escherichia coli Cellulitis left side of the neck, improved Right heel ulcer with cellulitis, no evidence of osteomyelitis Status post debridement on 10/13/16 Conjunctivitis Bedridden status Management IV vancomycin DuoNeb 4 times a day, as needed We will follow advice from ID Infectious disease and Anchor Tacker following DVT prophylaxis Reduce insulin dose, nighttime snack Discussed with nurse Discussed with patient, I doubt that she understood 35 minutes Darryn Brown MD Oct 17, 2016 13:48
[2016-10-17 16:16] VITALS: BP 163/69; PULSE 77; RESP 19; TEMP 99.4; O2SAT 98
--- NOTE | 2016-10-17 17:19 | HHI.IDPN ---
Note Infectious Disease Note Patient is awake but confused. Asking to go to school. No fever. PAST MEDICAL HISTORY: 1. Multiple sclerosis. 2. Hypertension. 3. Hypothyroidism. 4. Hypercholesterolemia. 5. Anemia. 6. History of CVA with residual right-sided weakness. ALLERGIES: NO KNOWN DRUG ALLERGIES. ANTIBIOTICS:: 1. vancomycin. 2. Ciprofloxacin eye drops. 3. Fluconazole. OBJECTIVE: Vital Signs Date Time Temp Pulse Resp B/P Pulse Ox O2 Delivery O2 Flow Rate FiO2 10/17/16 16:16 99.4 77 19 163/69 98 10/17/16 12:30 96.7 75 19 153/65 97 10/17/16 08:00 98.7 80 20 136/63 96 10/17/16 04:00 96.1 65 16 160/68 100 10/17/16 00:00 96.5 64 16 154/70 97 10/16/16 20:00 97.2 68 18 148/72 96 Laboratory Tests Test 10/17/16 06:12 White Blood Count 6.0 TH/MM3 Red Blood Count 4.78 MIL/MM3 Hemoglobin 12.3 GM/DL Hematocrit 36.6 % Mean Corpuscular Volume 76.7 FL Mean Corpuscular Hemoglobin 25.7 PG Mean Corpuscular Hemoglobin 33.5 % Concent Red Cell Distribution Width 17.3 % Platelet Count 155 TH/MM3 Mean Platelet Volume 8.7 FL Neutrophils (%) (Auto) 58.0 % Lymphocytes (%) (Auto) 23.2 % Monocytes (%) (Auto) 12.8 % Eosinophils (%) (Auto) 5.1 % Basophils (%) (Auto) 0.9 % Neutrophils # (Auto) 3.5 TH/MM3 Lymphocytes # (Auto) 1.4 TH/MM3 Monocytes # (Auto) 0.8 TH/MM3 Eosinophils # (Auto) 0.3 TH/MM3 Basophils # (Auto) 0.1 TH/MM3 CBC Comment DIFF FINAL Differential Comment Laboratory Tests Test 10/17/16 06:12 Sodium Level 144 MEQ/L Potassium Level 3.7 MEQ/L Chloride Level 111 MEQ/L Carbon Dioxide Level 24.5 MEQ/L Anion Gap 9 MEQ/L Blood Urea Nitrogen 13 MG/DL Creatinine 0.46 MG/DL Estimat Glomerular Filtration 134 ML/MIN Rate Random Glucose 60 MG/DL Calcium Level 8.5 MG/DL Microbiology Date/Time Procedure Status Source Growth 10/15/16 15:15 Urine Culture - Final Complete Urine Catheterized Urine Leonor Albicans PHYSICAL EXAMINATION: GENERAL: awake and appears confused. HEENT: No icterus. mild conjunctival erythema. Oropharynx without lesions. NECK: Supple. LUNGS: Decreased breath sounds bilateral. HEART: Regular S1 and S2. No murmur. ABDOMEN: Soft, nontender. EXTREMITIES: The left heel is post debridement with surgical dressing in place. NEUROLOGIC: awake and responsive. SKIN: No diffuse rash. IMPRESSION: 1. 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 MRSA (+) culture. 2. Urinary tract infection - leonor. 3. erythema at the face does not appear to be cellulitis. 4. AMS due to medication - Ativan. Improved some. RECOMMENDATIONS: 1. Continue Vancomycin x2 weeks while monitoring wound healing. 2. Continue Fluconazole for yeast x 5 days. 3. Check CBC and BMP. Som Pandey MD Oct 17, 2016 17:19
[2016-10-17 20:00] VITALS: BP 186/76; PULSE 81; RESP 16; TEMP 97.5; O2SAT 96
[2016-10-18] VITALS (8 sets, daily range): BP systolic 138–195; BP diastolic 63–95; PULSE 74–96; RESP 12–18; TEMP 96.3–98.7; O2SAT 94–100
[2016-10-18] MEDS ORDERED: PHARMACY ORDERED LAB ONE (05:45)
[2016-10-18] MEDS: LEVOTHYROXINE SODIUM 100 MCG TAB PO SCH (05:50)
[2016-10-18] MEDS: VANCOMYCIN INJ 1,500 MG in SODIUM CHLORID 0.9% 500 ML INJ 500 ML IV SCH (05:50)
[2016-10-18] MEDS: LEVOTHYROXINE SODIUM 75 MCG TAB PO SCH (05:50)
[2016-10-18] MEDS: HEPARIN SODIUM - SQ 10,000 UNITS/ML VIAL SQ SCH ×2 (05:50→16:33)
[2016-10-18] MEDS: INSULIN ASPART SUPPLEMENTAL SCALE SQ SCH ×4 (06:34→21:51)
[2016-10-18] MEDS: NIFEdipine 30 MG SUSTAINED RELEASE TAB PO SCH (10:25)
[2016-10-18] MEDS: MIRTAZAPINE 15 MG TAB PO SCH (10:26)
[2016-10-18] MEDS: POTASSIUM CHLORIDE 10 MEQ CONTROLLED RELEASE TAB PO SCH (10:27)
[2016-10-18] MEDS: FUROSEMIDE 20 MG TAB PO SCH ×2 (10:27→18:50)
[2016-10-18] MEDS: ASPIRIN EC 81 MG TABEC PO SCH (10:27)
[2016-10-18] MEDS: SODIUM CHLORIDE 0.9% FLUSH 10 ML FLUSH IV FLUSH SCH ×2 (10:28→21:31)
[2016-10-18] MEDS: INSULIN DETEMIR 100 UNITS/ML VIAL SQ SCH (10:31)
[2016-10-18] MEDS: METOPROLOL TARTRATE 50 MG TAB PO SCH (12:35)
[2016-10-18] MEDS: VALSARTAN 160 MG TAB PO SCH (12:35)
[2016-10-18] MEDS: FLUCONAZOLE 100 MG TAB PO SCH (16:33)
--- NOTE | 2016-10-18 18:26 | HHI.PR ---
Subjective Interval History Alert, verbal, confused,, incoherent Review of Systems Constitutional Constitutional Remarks Not reliable Vitals/Results Intake & Output 10/17/16 10/17/16 10/18/16 14:59 22:59 06:59 Intake Total 720 ml 200 ml 100 ml Output Total 600 ml 1600 ml 850 ml Balance 120 ml -1400 ml -750 ml Intake Oral 720 ml 200 ml 100 ml Output Urine Total 600 ml 1600 ml 850 ml # Bowel Movements 1 1 0 Vital Signs Vital Signs Date Time Temp Pulse Resp B/P Pulse Ox O2 Delivery O2 Flow Rate FiO2 10/18/16 16:00 98.2 74 16 193/81 98 10/18/16 12:00 98.7 94 12 187/82 96 10/18/16 09:09 99 Nasal Cannula 2.00 10/18/16 08:00 96.3 83 18 159/74 97 10/18/16 04:03 97.0 80 16 173/71 100 10/18/16 00:00 97.2 76 16 138/63 94 10/17/16 20:00 97.5 81 16 186/76 96 10/17/16 19:51 Nasal Cannula 2.00 CBC/BMP: 10/17/16 0612 10/17/16 0612 Lab Results Laboratory Tests Test 10/18/16 05:45 Vancomycin Level Trough 25.6 MCG/ML Physical Exam General General Appearance: Well Developed, Anxious, Obese Eyes Eye Exam: Pupils Reactive Ears & Nose Ears & Nose Exam: Nasal Mucosa [place] Throat Throat Exam: Oral Mucosa [place] & Moist Neck Neck Exam: Trachea Midline Pulmonary Resp Exam: Crackles Resp Remarks Wheezing bilaterally Cardiology CV Exam: Normal Sinus Rhythm, Good Perfusion Gastrointestinal/Abdomen GI Exam: Non-Tender, Bowel Sounds Present Musculoskeletal MS Exam: Normal Tone Integumentary Skin Remarks Intertrigo in the perianal area Extremeties Extremities Exam: Trace Edema Extremeties Remarks right heel in surgical dressing Neurologic Neuro Exam: Alert, Awake, Moving All Extremities VTE Prophylaxis VTE Prophylaxis Meds: Heparin Assessment/Plan Assessment/Plan Assessment Hypoglycemia improved MRSA reported in the right foot wound Dyspnea, improved Multi-microbial urinary infection, culture showing MRSA/Proteus/Escherichia coli Cellulitis left side of the neck, improved Right heel ulcer with cellulitis, no evidence of osteomyelitis Status post debridement on 10/13/16 Conjunctivitis Bedridden status Management IV vancomycin DuoNeb 4 times a day, as needed We will follow advice from ID Infectious disease and Teacher Lip Reading following DVT prophylaxis Reduce insulin dose, nighttime snack Discussed with nurse Discussed with patient, I doubt that she understood 35 minutes Darryn Brown MD Oct 18, 2016 18:26
[2016-10-18] MEDS: DOCUSATE SODIUM 50 MG/SENNA 8.6 MG TAB PO SCH (21:32)
[2016-10-18] MEDS: COLLAGENASE OINT 30 GM TUBE TOPICAL SCH (21:34)
[2016-10-18] MEDS: NYSTATIN/TRIAMCINOLONE CREAM 15 GM TOPICAL SCH (21:34)
[2016-10-18] MEDS: cloNIDine HCL 0.1 MG TAB PO PRN (21:43)
[2016-10-19 04:00] VITALS: BP 119/56; PULSE 69; RESP 16; TEMP 97.9; O2SAT 100
[2016-10-19] MEDS: HEPARIN SODIUM - SQ 10,000 UNITS/ML VIAL SQ SCH ×2 (04:31→17:33)
[2016-10-19] MEDS: LEVOTHYROXINE SODIUM 100 MCG TAB PO SCH (06:00)
[2016-10-19] MEDS: LEVOTHYROXINE SODIUM 75 MCG TAB PO SCH (06:00)
[2016-10-19] MEDS: INSULIN ASPART SUPPLEMENTAL SCALE SQ SCH ×4 (06:18→22:11)
[2016-10-19 08:00] VITALS: BP 140/72; PULSE 75; RESP 18; TEMP 97.2; O2SAT 96
[2016-10-19] MEDS: COLLAGENASE OINT 30 GM TUBE TOPICAL SCH (09:00)
[2016-10-19] MEDS: POTASSIUM CHLORIDE 10 MEQ CONTROLLED RELEASE TAB PO SCH (09:00)
[2016-10-19] MEDS: INSULIN DETEMIR 100 UNITS/ML VIAL SQ SCH (09:40)
[2016-10-19] MEDS: MIRTAZAPINE 15 MG TAB PO SCH (11:25)
[2016-10-19] MEDS: ASPIRIN EC 81 MG TABEC PO SCH (11:25)
[2016-10-19] MEDS: VALSARTAN 160 MG TAB PO SCH (11:25)
[2016-10-19] MEDS: SODIUM CHLORIDE 0.9% FLUSH 10 ML FLUSH IV FLUSH SCH ×2 (11:25→20:44)
[2016-10-19] MEDS: DOCUSATE SODIUM 50 MG/SENNA 8.6 MG TAB PO SCH ×2 (11:26→20:44)
[2016-10-19] MEDS: METOPROLOL TARTRATE 50 MG TAB PO SCH ×2 (11:26→20:44)
[2016-10-19] MEDS: NIFEdipine 30 MG SUSTAINED RELEASE TAB PO SCH (11:26)
[2016-10-19 12:00] VITALS: BP 139/63; PULSE 85; RESP 20; TEMP 97.8; O2SAT 97
[2016-10-19] MEDS: VANCOMYCIN 1,500 MG/NS 500 ML IV SCH ×2 (13:24)
[2016-10-19] MEDS: FLUCONAZOLE 100 MG TAB PO SCH (13:29)
[2016-10-19] MEDS: NYSTATIN/TRIAMCINOLONE CREAM 15 GM TOPICAL SCH ×2 (15:52→20:45)
[2016-10-19 16:00] VITALS: BP 128/69; PULSE 72; RESP 18; TEMP 97; O2SAT 100
[2016-10-19] MEDS: FUROSEMIDE 20 MG TAB PO SCH (18:04)
[2016-10-19] MEDS: POTASSIUM CHLORIDE 25 MEQ EFFERVESCENT TAB PO SCH (18:47)
--- NOTE | 2016-10-19 18:47 | HHI.PR ---
Subjective Interval History Alert, verbal, still confused at times, wants to go home, wheezing earlier, eating very small amounts, yelling at times Review of Systems Constitutional Constitutional Remarks Not reliable Vitals/Results Intake & Output 10/18/16 10/18/16 10/19/16 15:00 23:00 07:00 Intake Total 200 ml 150 ml Output Total 800 ml 1600 ml 400 ml Balance -800 ml -1400 ml -250 ml Intake Oral 200 ml 150 ml Output Urine Total 800 ml 1600 ml 400 ml # Bowel Movements 1 0 Vital Signs Vital Signs Date Time Temp Pulse Resp B/P Pulse Ox O2 Delivery O2 Flow Rate FiO2 10/19/16 16:00 97.0 72 18 128/69 100 10/19/16 12:00 97.8 85 20 139/63 97 10/19/16 11:45 Nasal Cannula 2.00 10/19/16 08:00 97.2 75 18 140/72 96 10/19/16 04:00 97.9 69 16 119/56 100 10/18/16 22:00 98.3 96 18 195/95 96 10/18/16 21:28 97 Nasal Cannula 2.00 10/18/16 20:00 97 Nasal Cannula 2.00 10/18/16 20:00 98.3 74 16 169/72 100 CBC/BMP: 10/17/16 0612 10/19/16 0619 Lab Results Laboratory Tests Test 10/19/16 06:19 Creatinine 0.61 MG/DL Estimat Glomerular Filtration 97 ML/MIN Rate Random Vancomycin Level 19.0 COMMENT Physical Exam General General Appearance: Well Developed, Anxious, Obese Eyes Eye Exam: Pupils Reactive Ears & Nose Ears & Nose Exam: Nasal Mucosa [place] Throat Throat Exam: Oral Mucosa [place] & Moist Neck Neck Exam: Trachea Midline Pulmonary Resp Exam: Crackles Resp Remarks Wheezing bilaterally Cardiology CV Exam: Normal Sinus Rhythm, Good Perfusion Gastrointestinal/Abdomen GI Exam: Non-Tender, Bowel Sounds Present Musculoskeletal MS Exam: Normal Tone Integumentary Skin Remarks Intertrigo in the perianal area Extremeties Extremities Exam: Trace Edema Extremeties Remarks right heel in surgical dressing Neurologic Neuro Exam: Alert, Awake, Moving All Extremities VTE Prophylaxis VTE Prophylaxis Meds: Heparin Assessment/Plan Assessment/Plan Assessment Wheezing Hypoglycemia improved MRSA reported in the right foot wound Dyspnea, improved Multi-microbial urinary infection, culture showing MRSA/Proteus/Escherichia coli Cellulitis left side of the neck, improved Right heel ulcer with cellulitis, no evidence of osteomyelitis Status post debridement on 10/13/16 Conjunctivitis Bedridden status Management Advair Diskus IV vancomycin DuoNeb 4 times a day, as needed We will follow advice from ID Infectious disease and Consultant Intern following DVT prophylaxis Reduce insulin dose, nighttime snack Discussed with nurse Discussed with patient, I doubt that she understood Lasix 35 minutes Darryn Brown MD Oct 19, 2016 18:47
[2016-10-19 20:00] VITALS: BP 147/66; PULSE 72; RESP 19; TEMP 97.7; O2SAT 99
[2016-10-19] MEDS: BUDESONIDE-FORMOTEROL 80/4.5 MCG INHALER INH SCH (20:44)
[2016-10-19] MEDS: LORazepam 0.5 MG TAB PO PRN (20:44)
[2016-10-20] VITALS: BP 148/64; PULSE 71; RESP 18; TEMP 98.9; O2SAT 100
[2016-10-20 04:00] VITALS: BP 143/64; PULSE 71; RESP 19; TEMP 98.1; O2SAT 99
[2016-10-20] MEDS: HEPARIN SODIUM - SQ 10,000 UNITS/ML VIAL SQ SCH ×2 (05:51→18:59)
[2016-10-20] MEDS: LEVOTHYROXINE SODIUM 75 MCG TAB PO SCH (05:51)
[2016-10-20] MEDS: LEVOTHYROXINE SODIUM 100 MCG TAB PO SCH (05:51)
[2016-10-20 07:16] LABS: AUTOMATED NEUTROPHIL # 7.3 TH/MM3 (1.8-7.7); BASOPHIL # 0.1 TH/MM3 (0-0.2); BASOPHIL % 0.5 % (0.0-2.0); EOSINOPHIL # 0.3 TH/MM3 (0-0.4); EOSINOPHIL % 2.6 % (0.0-4.0); HEMATOCRIT 42.3 % (35.0-46.0); HEMO FLAGS DIFF FINAL; LYMPH % 13.2 % (9.0-44.0); LYMPHOCYTE # 1.4 TH/MM3 (1.0-4.8); MEAN CELL VOLUME 77.4 FL (80.0-100.0); MEAN CORPUSCULAR HEMOGLOBIN 25.8 PG (27.0-34.0); MEAN CORPUSCULAR HGB CONC 33.3 % (32.0-36.0); MONO % 13.8 % (0.0-8.0); NEUT % 69.9 % (16.0-70.0); PLATELET COUNT 134 TH/MM3 (150-450); RED BLOOD COUNT 5.47 MIL/MM3 (4.00-5.30); RED CELL DISTRIBUTION WIDTH 17.8 % (11.6-17.2); WHITE BLOOD COUNT 10.4 TH/MM3 (4.0-11.0)
[2016-10-20 07:57] LABS: BICARBONATE 29.9 MEQ/L (21.0-32.0); MAGNESIUM 1.6 MG/DL (1.5-2.5); POTASSIUM 3.6 MEQ/L (3.5-5.1)
[2016-10-20 08:00] VITALS: BP 141/63; PULSE 72; RESP 14; TEMP 98.2; O2SAT 99
[2016-10-20] MEDS: INSULIN ASPART SUPPLEMENTAL SCALE SQ SCH ×4 (08:07→21:00)
[2016-10-20] MEDS: INSULIN DETEMIR 100 UNITS/ML VIAL SQ SCH (10:17)
[2016-10-20] MEDS: DOCUSATE SODIUM 50 MG/SENNA 8.6 MG TAB PO SCH ×2 (10:26→21:00)
[2016-10-20] MEDS: METOPROLOL TARTRATE 50 MG TAB PO SCH ×2 (10:26→21:00)
[2016-10-20] MEDS: VALSARTAN 160 MG TAB PO SCH (10:26)
[2016-10-20] MEDS: FUROSEMIDE 20 MG TAB PO SCH ×2 (10:26→18:00)
[2016-10-20] MEDS: MIRTAZAPINE 15 MG TAB PO SCH (10:26)
[2016-10-20] MEDS: NIFEdipine 30 MG SUSTAINED RELEASE TAB PO SCH (10:26)
[2016-10-20] MEDS: ASPIRIN EC 81 MG TABEC PO SCH (10:26)
[2016-10-20] MEDS: SODIUM CHLORIDE 0.9% FLUSH 10 ML FLUSH IV FLUSH SCH ×2 (10:31→23:20)
[2016-10-20] MEDS: POTASSIUM CHLORIDE 25 MEQ EFFERVESCENT TAB PO SCH (10:47)
[2016-10-20] MEDS: NYSTATIN/TRIAMCINOLONE CREAM 15 GM TOPICAL SCH ×2 (10:49→21:00)
[2016-10-20] MEDS: COLLAGENASE OINT 30 GM TUBE TOPICAL SCH (10:49)
[2016-10-20] MEDS: BUDESONIDE-FORMOTEROL 80/4.5 MCG INHALER INH SCH ×2 (10:50→21:00)
[2016-10-20] MEDS: VANCOMYCIN 1,500 MG/NS 500 ML IV SCH ×2 (11:37)
[2016-10-20 12:00] VITALS: BP 154/64; PULSE 67; RESP 18; TEMP 98.7; O2SAT 100
--- NOTE | 2016-10-20 14:52 | HHI.PR ---
Subjective Subjective Remarks awake, oriented to self and place calm cooperative has no complaints poor historian no fever did not eat this morning for breakfast Review of Systems Constitutional Constitutional Remarks unable to complete ROS Vitals/Results Intake & Output 10/19/16 10/19/16 10/20/16 15:00 23:00 07:00 Intake Total 20 ml 40 ml 60 ml Output Total 200 ml 850 ml 300 ml Balance -180 ml -810 ml -240 ml Intake Oral 20 ml 40 ml 60 ml Output Urine Total 200 ml 850 ml 300 ml Vital Signs Vital Signs Date Time Temp Pulse Resp B/P Pulse Ox O2 Delivery O2 Flow Rate FiO2 10/20/16 12:00 98.7 67 18 154/64 100 10/20/16 08:00 98.2 72 14 141/63 99 10/20/16 04:00 98.1 71 19 143/64 99 10/20/16 00:00 98.9 71 18 148/64 100 10/19/16 20:45 Nasal Cannula 2.00 21 10/19/16 20:00 97.7 72 19 147/66 99 10/19/16 16:00 97.0 72 18 128/69 100 CBC/BMP: 10/20/16 0534 10/20/16 0534 Lab Results Laboratory Tests Test 10/20/16 05:34 White Blood Count 10.4 TH/MM3 Red Blood Count 5.47 MIL/MM3 Hemoglobin 14.1 GM/DL Hematocrit 42.3 % Mean Corpuscular Volume 77.4 FL Mean Corpuscular Hemoglobin 25.8 PG Mean Corpuscular Hemoglobin 33.3 % Concent Red Cell Distribution Width 17.8 % Platelet Count 134 TH/MM3 Mean Platelet Volume 9.4 FL Neutrophils (%) (Auto) 69.9 % Lymphocytes (%) (Auto) 13.2 % Monocytes (%) (Auto) 13.8 % Eosinophils (%) (Auto) 2.6 % Basophils (%) (Auto) 0.5 % Neutrophils # (Auto) 7.3 TH/MM3 Lymphocytes # (Auto) 1.4 TH/MM3 Monocytes # (Auto) 1.4 TH/MM3 Eosinophils # (Auto) 0.3 TH/MM3 Basophils # (Auto) 0.1 TH/MM3 CBC Comment DIFF FINAL Differential Comment Sodium Level 140 MEQ/L Potassium Level 3.6 MEQ/L Chloride Level 102 MEQ/L Carbon Dioxide Level 29.9 MEQ/L Anion Gap 8 MEQ/L Blood Urea Nitrogen 9 MG/DL Creatinine 0.67 MG/DL Estimat Glomerular Filtration 87 ML/MIN Rate Random Glucose 155 MG/DL Calcium Level 9.0 MG/DL Phosphorus Level 2.8 MG/DL Magnesium Level 1.6 MG/DL Physical Exam General General Appearance: Well Developed, No Acute Distress, Comfortable, Obese Eyes Eye Exam: Pupils Equal, Pupils Reactive Ears & Nose Ears & Nose Exam: Nasal Mucosa [place] Throat Throat Exam: Oral Mucosa [place] & Moist Neck Neck Exam: Trachea Midline Pulmonary Resp Exam: Decreased Bases Cardiology CV Exam: Normal Sinus Rhythm, Good Perfusion Gastrointestinal/Abdomen GI Exam: Soft, Non-Tender, Bowel Sounds Present, Non-Distended Genitourinary Remarks STARKS Musculoskeletal MS Exam: Normal Tone, Atrophy, Unable to Ambulate Integumentary Skin Exam: Ulcer(s) Skin Remarks facial erythema, fungal rash left axillary region Extremeties Extremities Exam: Pedal Pulses Palpable, Trace Edema Neurologic Neuro Exam: Alert, Awake, Speech Clear, Moving All Extremities, No Focal Deficits VTE Prophylaxis VTE Prophylaxis Meds: Heparin Assessment/Plan Assessment/Plan Sepsis MRSA reported in the right foot wound Dyspnea, improved Multi-microbial urinary infection, culture showing MRSA/Proteus/Escherichia coli Cellulitis left side of the neck, improved Right heel ulcer with cellulitis, no evidence of osteomyelitis Status post debridement on 10/13/16 Conjunctivitis Bedridden status Hypoglycemia Management Appreciate consultants input, podiatry and ID continue abx per ID recommends Vanco x 2 weeks PICC line today CM to arrange abx as SNF continue supplemental oxygen duonebs Advair accucheck AC/HS with low dose ISS Mycolog ointment wound care and dressing change CM for dc planning, needs IV abx at SNF Order PICC poss dc on Saturday D/W RN D/W Dr. Chapman D/W pt This pt was seen by myself and Dr. Chapman, this note is written on her behalf. Taniya Izaguirre Oct 20, 2016 14:52
[2016-10-20] MEDS: FLUCONAZOLE 100 MG TAB PO SCH (15:24)
[2016-10-20 16:00] VITALS: BP 144/90; PULSE 60; RESP 16; TEMP 98.8; O2SAT 99
[2016-10-20 20:00] VITALS: BP 141/64; PULSE 81; RESP 17; TEMP 97.2; O2SAT 98
[2016-10-20] MEDS: ENALAPRILAT 1.25 MG/ML VIAL IV PUSH PRN (23:20)
[2016-10-21] VITALS (8 sets, daily range): BP systolic 122–178; BP diastolic 53–72; PULSE 63–84; RESP 17–20; TEMP 96.5–98.9; O2SAT 96–100
[2016-10-21] MEDS: HEPARIN SODIUM - SQ 10,000 UNITS/ML VIAL SQ SCH ×2 (05:21→18:46)
[2016-10-21] MEDS: INSULIN ASPART SUPPLEMENTAL SCALE SQ SCH ×4 (05:21→21:00)
[2016-10-21] MEDS: LEVOTHYROXINE SODIUM 75 MCG TAB PO SCH (06:00)
[2016-10-21] MEDS: LEVOTHYROXINE SODIUM 100 MCG TAB PO SCH (06:00)
[2016-10-21 06:42] LABS: BASOPHIL % 0.6 % (0.0-2.0); EOSINOPHIL # 0.4 TH/MM3 (0-0.4); EOSINOPHIL % 5.1 % (0.0-4.0); HEMATOCRIT 40.2 % (35.0-46.0); HEMO FLAGS DIFF FINAL; LYMPH % 15.2 % (9.0-44.0); LYMPHOCYTE # 1.2 TH/MM3 (1.0-4.8); MEAN CELL VOLUME 78.3 FL (80.0-100.0); MEAN CORPUSCULAR HEMOGLOBIN 25.4 PG (27.0-34.0); MEAN CORPUSCULAR HGB CONC 32.4 % (32.0-36.0); MONO % 13.4 % (0.0-8.0); NEUT % 65.7 % (16.0-70.0); PLATELET COUNT 133 TH/MM3 (150-450); RED BLOOD COUNT 5.13 MIL/MM3 (4.00-5.30); RED CELL DISTRIBUTION WIDTH 17.7 % (11.6-17.2); WHITE BLOOD COUNT 7.6 TH/MM3 (4.0-11.0)
[2016-10-21 06:49] LABS: BICARBONATE 30.1 MEQ/L (21.0-32.0); POTASSIUM 3.4 MEQ/L (3.5-5.1)
[2016-10-21] MEDS: SODIUM CHLORIDE 0.9% FLUSH 10 ML FLUSH IV FLUSH SCH ×2 (09:00→20:29)
[2016-10-21] MEDS: INSULIN DETEMIR 100 UNITS/ML VIAL SQ SCH (09:00)
[2016-10-21] MEDS: NIFEdipine 30 MG SUSTAINED RELEASE TAB PO SCH (10:35)
[2016-10-21] MEDS: NYSTATIN/TRIAMCINOLONE CREAM 15 GM TOPICAL SCH ×2 (10:35→20:35)
[2016-10-21] MEDS: ASPIRIN EC 81 MG TABEC PO SCH (10:35)
[2016-10-21] MEDS: FUROSEMIDE 20 MG TAB PO SCH ×2 (10:35→18:39)
[2016-10-21] MEDS: METOPROLOL TARTRATE 50 MG TAB PO SCH ×2 (10:35→20:28)
[2016-10-21] MEDS: MIRTAZAPINE 15 MG TAB PO SCH (10:35)
[2016-10-21] MEDS: VALSARTAN 160 MG TAB PO SCH (10:35)
[2016-10-21] MEDS: POTASSIUM CHLORIDE 25 MEQ EFFERVESCENT TAB PO SCH (10:35)
[2016-10-21] MEDS: DOCUSATE SODIUM 50 MG/SENNA 8.6 MG TAB PO SCH ×2 (10:35→20:28)
[2016-10-21] MEDS: COLLAGENASE OINT 30 GM TUBE TOPICAL SCH (10:35)
[2016-10-21] MEDS: BUDESONIDE-FORMOTEROL 80/4.5 MCG INHALER INH SCH ×2 (10:35→20:33)
[2016-10-21] MEDS ORDERED: PHARMACY ORDERED LAB ONE (11:45)
--- NOTE | 2016-10-21 12:26 | HHI.PR ---
Subjective Subjective Remarks More awake and alert today, oriented 2 Complaining of back pain No fever No acute changes overnight Review of Systems Constitutional Constitutional Remarks unable to complete ROS Vitals/Results Intake & Output 10/20/16 10/20/16 10/21/16 15:00 23:00 07:00 Intake Total 60 ml 60 ml 20 ml Output Total 50 ml 525 ml 100 ml Balance 10 ml -465 ml -80 ml Intake Oral 60 ml 60 ml 20 ml Output Urine Total 50 ml 525 ml 100 ml # Bowel Movements 0 Vital Signs Vital Signs Date Time Temp Pulse Resp B/P Pulse Ox O2 Delivery O2 Flow Rate FiO2 10/21/16 08:00 98.9 63 20 142/60 98 10/21/16 04:00 97.4 68 19 122/53 99 10/21/16 01:39 166/61 10/21/16 00:00 98.8 84 18 178/72 100 10/20/16 23:22 1.50 10/20/16 20:00 97.2 81 17 141/64 98 10/20/16 16:00 98.8 60 16 144/90 99 CBC/BMP: 10/21/16 0446 10/21/16 0446 Lab Results Laboratory Tests Test 10/21/16 04:46 White Blood Count 7.6 TH/MM3 Red Blood Count 5.13 MIL/MM3 Hemoglobin 13.0 GM/DL Hematocrit 40.2 % Mean Corpuscular Volume 78.3 FL Mean Corpuscular Hemoglobin 25.4 PG Mean Corpuscular Hemoglobin 32.4 % Concent Red Cell Distribution Width 17.7 % Platelet Count 133 TH/MM3 Mean Platelet Volume 9.1 FL Neutrophils (%) (Auto) 65.7 % Lymphocytes (%) (Auto) 15.2 % Monocytes (%) (Auto) 13.4 % Eosinophils (%) (Auto) 5.1 % Basophils (%) (Auto) 0.6 % Neutrophils # (Auto) 5.0 TH/MM3 Lymphocytes # (Auto) 1.2 TH/MM3 Monocytes # (Auto) 1.0 TH/MM3 Eosinophils # (Auto) 0.4 TH/MM3 Basophils # (Auto) 0.0 TH/MM3 CBC Comment DIFF FINAL Differential Comment Sodium Level 142 MEQ/L Potassium Level 3.4 MEQ/L Chloride Level 103 MEQ/L Carbon Dioxide Level 30.1 MEQ/L Anion Gap 9 MEQ/L Blood Urea Nitrogen 12 MG/DL Creatinine 0.70 MG/DL Estimat Glomerular Filtration 82 ML/MIN Rate Random Glucose 112 MG/DL Calcium Level 8.6 MG/DL Physical Exam General General Appearance: Well Developed, No Acute Distress, Comfortable, Obese Eyes Eye Exam: Pupils Equal, Pupils Reactive Ears & Nose Ears & Nose Exam: Nasal Mucosa [place] Throat Throat Exam: Oral Mucosa [place] & Moist Neck Neck Exam: Trachea Midline Pulmonary Resp Exam: Decreased Bases Cardiology CV Exam: Normal Sinus Rhythm, Good Perfusion Gastrointestinal/Abdomen GI Exam: Soft, Non-Tender, Bowel Sounds Present, Non-Distended Genitourinary Remarks STARKS Musculoskeletal MS Exam: Normal Tone, Atrophy, Unable to Ambulate Integumentary Skin Exam: Ulcer(s) Skin Remarks facial erythema, fungal rash left axillary region Extremeties Extremities Exam: Pedal Pulses Palpable, Trace Edema Neurologic Neuro Exam: Alert, Awake, Speech Clear, Moving All Extremities, No Focal Deficits VTE Prophylaxis VTE Prophylaxis Meds: Heparin Assessment/Plan Assessment/Plan Sepsis MRSA reported in the right foot wound Dyspnea, improved Multi-microbial urinary infection, culture showing MRSA/Proteus/Escherichia coli Cellulitis left side of the neck, improved Right heel ulcer with cellulitis, no evidence of osteomyelitis Status post debridement on 10/13/16 Conjunctivitis Bedridden status Hypoglycemia Management Appreciate consultants input, podiatry and ID continue abx per ID recommends Vanco x 2 weeks PICC line today -consent was obtained today CM to arrange abx as SNF continue supplemental oxygen duonebs Advair accucheck AC/HS with low dose ISS Mycolog ointment wound care and dressing change CM for dc planning, needs IV abx at SNF Hopefully patient will go back to SNF tomorrow D/W RN D/W Dr. Chapman D/W pt This pt was seen by myself and Dr. Chapman, this note is written on her behalf. Taniya Izaguirre Oct 21, 2016 12:26 Taniya Izaguirre Oct 21, 2016 12:26
[2016-10-21] MEDS: POTASSIUM CHLORIDE 25 MEQ EFFERVESCENT TAB PO ONE ×2 (12:30→16:55)
[2016-10-21] MEDS ORDERED: SODIUM CHLORIDE 0.9% FLUSH 10 ML FLUSH IV FLUSH PRN (16:00)
--- NOTE | 2016-10-21 16:00 | RADRPT ---
EXAM DATE/TIME: 10/21/2016 15:32 [facility] COMPARISON: CHEST SINGLE AP, October 14, 2016, 15:54. INDICATIONS : Evaluate PICC line placement MEDICAL HISTORY : Chronic obstructive pulmonary disease. SURGICAL HISTORY : coronary artery stent. ENCOUNTER: Subsequent ACUITY: 2 weeks PAIN SCORE: 0/10 LOCATION: chest FINDINGS: A single view of the chest demonstrates the lungs to be symmetrically aerated without evidence of mas s, infiltrate or effusion. The cardiomediastinal contours are unremarkable. Left-sided PICC line wi th tip in the SVC. Left shoulder prosthesis. Osseous structures are intact. CONCLUSION: Adequate placement of left-sided PICC line. Eduin Yancey MD on October 21, 2016 at 15:58 Board Certified Radiologist. This report was verified electronically.
[2016-10-21] MEDS: FLUCONAZOLE 100 MG TAB PO SCH (16:55)
[2016-10-21] MEDS: VANCOMYCIN 1,500 MG/NS 500 ML IV SCH ×2 (17:03)
[2016-10-22] VITALS (7 sets, daily range): BP systolic 122–165; BP diastolic 59–98; PULSE 58–74; RESP 16–20; TEMP 97.4–98.5; O2SAT 95–98
[2016-10-22] MEDS: LEVOTHYROXINE SODIUM 75 MCG TAB PO SCH (05:29)
[2016-10-22] MEDS: HEPARIN SODIUM - SQ 10,000 UNITS/ML VIAL SQ SCH ×2 (05:30→17:50)
[2016-10-22] MEDS: LEVOTHYROXINE SODIUM 100 MCG TAB PO SCH (05:30)
[2016-10-22] MEDS: INSULIN ASPART SUPPLEMENTAL SCALE SQ SCH ×4 (05:53→21:13)
[2016-10-22] MEDS: SODIUM CHLORIDE 0.9% FLUSH 10 ML FLUSH IV FLUSH SCH ×3 (10:50→21:03)
[2016-10-22] MEDS: NYSTATIN/TRIAMCINOLONE CREAM 15 GM TOPICAL SCH ×2 (10:52→21:17)
[2016-10-22] MEDS: REMOVE OLD CATAPRES (CLONIDINE) PATCH T-DERMAL SCH (10:52)
[2016-10-22] MEDS: cloNIDine HCL 0.1 MG/24 HR PATCH T-DERMAL SCH (10:52)
[2016-10-22] MEDS: POTASSIUM CHLORIDE 25 MEQ EFFERVESCENT TAB PO SCH (10:55)
[2016-10-22] MEDS: BUDESONIDE-FORMOTEROL 80/4.5 MCG INHALER INH SCH ×2 (10:57→21:10)
[2016-10-22] MEDS: DOCUSATE SODIUM 50 MG/SENNA 8.6 MG TAB PO SCH ×2 (11:00→21:16)
[2016-10-22] MEDS: VALSARTAN 160 MG TAB PO SCH (11:00)
[2016-10-22] MEDS: ASPIRIN EC 81 MG TABEC PO SCH (11:00)
[2016-10-22] MEDS: METOPROLOL TARTRATE 50 MG TAB PO SCH ×2 (11:00→21:16)
[2016-10-22] MEDS: FUROSEMIDE 20 MG TAB PO SCH ×2 (11:00→17:50)
[2016-10-22] MEDS: NIFEdipine 30 MG SUSTAINED RELEASE TAB PO SCH (11:00)
[2016-10-22] MEDS: INSULIN DETEMIR 100 UNITS/ML VIAL SQ SCH (11:11)
[2016-10-22] MEDS: FLUCONAZOLE 100 MG TAB PO SCH (13:14)
[2016-10-22] MEDS: COLLAGENASE OINT 30 GM TUBE TOPICAL SCH (13:16)
[2016-10-22] MEDS: cloNIDine HCL 0.1 MG TAB PO PRN (13:16)
--- NOTE | 2016-10-22 14:06 | HHI.IDPN ---
Note Infectious Disease Note Patient is awake and more alert. Afebrile. No fever. Vancomycin level is high. PAST MEDICAL HISTORY: 1. Multiple sclerosis. 2. Hypertension. 3. Hypothyroidism. 4. Hypercholesterolemia. 5. Anemia. 6. History of CVA with residual right-sided weakness. ALLERGIES: NO KNOWN DRUG ALLERGIES. ANTIBIOTICS:: 1. vancomycin. 2. Ciprofloxacin eye drops. 3. Fluconazole. OBJECTIVE: Vital Signs Date Time Temp Pulse Resp B/P Pulse Ox O2 Delivery O2 Flow Rate FiO2 10/22/16 13:00 98.0 74 20 165/98 96 10/22/16 08:00 97.6 59 18 143/64 98 10/22/16 04:00 98.0 58 19 153/67 98 10/22/16 00:00 98.5 68 16 158/69 98 10/21/16 20:00 96.9 84 17 152/67 96 10/21/16 17:17 98 Nasal Cannula 2.00 10/21/16 16:00 97.8 70 18 133/56 99 Laboratory Tests Test 10/21/16 04:46 White Blood Count 7.6 TH/MM3 Red Blood Count 5.13 MIL/MM3 Hemoglobin 13.0 GM/DL Hematocrit 40.2 % Mean Corpuscular Volume 78.3 FL Mean Corpuscular Hemoglobin 25.4 PG Mean Corpuscular Hemoglobin 32.4 % Concent Red Cell Distribution Width 17.7 % Platelet Count 133 TH/MM3 Mean Platelet Volume 9.1 FL Neutrophils (%) (Auto) 65.7 % Lymphocytes (%) (Auto) 15.2 % Monocytes (%) (Auto) 13.4 % Eosinophils (%) (Auto) 5.1 % Basophils (%) (Auto) 0.6 % Neutrophils # (Auto) 5.0 TH/MM3 Lymphocytes # (Auto) 1.2 TH/MM3 Monocytes # (Auto) 1.0 TH/MM3 Eosinophils # (Auto) 0.4 TH/MM3 Basophils # (Auto) 0.0 TH/MM3 CBC Comment DIFF FINAL Differential Comment Laboratory Tests Test 10/21/16 04:46 Sodium Level 142 MEQ/L Potassium Level 3.4 MEQ/L Chloride Level 103 MEQ/L Carbon Dioxide Level 30.1 MEQ/L Anion Gap 9 MEQ/L Blood Urea Nitrogen 12 MG/DL Creatinine 0.70 MG/DL Estimat Glomerular Filtration 82 ML/MIN Rate Random Glucose 112 MG/DL Calcium Level 8.6 MG/DL PHYSICAL EXAMINATION: GENERAL: Awake and alert. HEENT: No icterus. Oropharynx without lesions. NECK: Supple. LUNGS: Decreased breath sounds bilateral. HEART: Regular S1 and S2. No murmur. ABDOMEN: Soft, nontender. EXTREMITIES: The left heel is post debridement with surgical dressing in place. SKIN: No diffuse rash. Mild hyperemia of the face. NEUROLOGIC: awake and responsive. PSYCH: Calm. IMPRESSION: 1. 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 MRSA (+) culture. 2. Urinary tract infection - marianne. 3. erythema at the face does not appear to be cellulitis. 4. AMS. Improved. RECOMMENDATIONS: 1. Continue Vancomycin until November 02. 2. Stop Fluconazole. 3. Follow vancomycin levels. It is elevated and vancomycin needs to be adjusted. Therefore will await level tomorrow before order for outpatient is finalized. Som Pandey MD Oct 22, 2016 14:06
--- NOTE | 2016-10-22 15:33 | HHI.PR ---
Subjective Subjective Remarks sleepy today, oriented x 2 No fever No acute changes overnight unable to obtain ROS per nursing, daughter wants [facility] now Review of Systems Constitutional Constitutional Remarks unable to complete ROS Vitals/Results Intake & Output 10/21/16 10/21/16 10/22/16 15:00 23:00 07:00 Intake Total 260 ml 120 ml Output Total 650 ml 250 ml Balance -390 ml -130 ml Intake Oral 260 ml 120 ml Output Urine Total 650 ml 250 ml Vital Signs Vital Signs Date Time Temp Pulse Resp B/P Pulse Ox O2 Delivery O2 Flow Rate FiO2 10/22/16 14:44 Nasal Cannula 2.00 10/22/16 14:40 Nasal Cannula 2.00 10/22/16 13:00 98.0 74 20 165/98 96 10/22/16 08:00 97.6 59 18 143/64 98 10/22/16 04:00 98.0 58 19 153/67 98 10/22/16 00:00 98.5 68 16 158/69 98 10/21/16 20:00 96.9 84 17 152/67 96 10/21/16 17:17 98 Nasal Cannula 2.00 10/21/16 16:00 97.8 70 18 133/56 99 CBC/BMP: 10/21/16 0446 10/21/16 0446 Lab Results Laboratory Tests Test 10/21/16 10/22/16 16:45 05:50 Vancomycin Level Trough 18.6 MCG/ML Random Vancomycin Level 29.7 COMMENT Physical Exam General General Appearance: Well Developed, No Acute Distress, Comfortable, Obese Eyes Eye Exam: Pupils Equal, Pupils Reactive Ears & Nose Ears & Nose Exam: Nasal Mucosa [place] Throat Throat Exam: Oral Mucosa [place] & Moist Neck Neck Exam: Trachea Midline Pulmonary Resp Exam: Decreased Bases Cardiology CV Exam: Normal Sinus Rhythm, Good Perfusion Gastrointestinal/Abdomen GI Exam: Soft, Non-Tender, Bowel Sounds Present, Non-Distended Genitourinary Remarks STARKS Musculoskeletal MS Exam: Normal Tone, Atrophy, Unable to Ambulate Integumentary Skin Exam: Ulcer(s) Skin Remarks facial erythema, fungal rash left axillary region Extremeties Extremities Exam: Pedal Pulses Palpable, Trace Edema Neurologic Neuro Exam: Alert, Awake, Speech Clear, Moving All Extremities, No Focal Deficits VTE Prophylaxis VTE Prophylaxis Meds: Heparin Assessment/Plan Assessment/Plan Sepsis MRSA reported in the right foot wound Dyspnea, improved Multi-microbial urinary infection, culture showing MRSA/Proteus/Escherichia coli Cellulitis left side of the neck, improved Right heel ulcer with cellulitis, no evidence of osteomyelitis Status post debridement on 10/13/16 Conjunctivitis Bedridden status Hypoglycemia Management Appreciate consultants input, podiatry and ID continue abx per ID recommends Vanco x 2 weeks PICC done CM to arrange abx as SNF d/w Dr. Pandey Vanco random elevated, recommends to repeat tomorrow before dc continue supplemental oxygen duonebs Advair accucheck AC/HS with low dose ISS Mycolog ointment wound care and dressing change daughter initially wanted different SNF, now wants pt to go back to [facility] Repeat Vanco tomorrow Poss DC to SNF tomorrow D/W RN D/W Dr. Chapman D/W pt D/W CM This pt was seen by myself and Dr. Chapman, this note is written on her behalf. Taniya Izaguirre Oct 22, 2016 15:33
[2016-10-22] MEDS ORDERED: VANCOMYCIN 1,500 MG/NS 500 ML IV SCH ×2 (17:00)
[2016-10-22] MEDS: MIRTAZAPINE 15 MG TAB PO SCH (17:46)
[2016-10-23] VITALS (7 sets, daily range): BP systolic 98–159; BP diastolic 51–74; PULSE 55–79; RESP 16–20; TEMP 96.5–97.8; O2SAT 97–100
[2016-10-23] MEDS: LEVOTHYROXINE SODIUM 100 MCG TAB PO SCH (05:31)
[2016-10-23] MEDS: LEVOTHYROXINE SODIUM 75 MCG TAB PO SCH (05:31)
[2016-10-23] MEDS: HEPARIN SODIUM - SQ 10,000 UNITS/ML VIAL SQ SCH ×2 (05:32→18:27)
[2016-10-23] MEDS: INSULIN ASPART SUPPLEMENTAL SCALE SQ SCH ×4 (06:04→21:25)
[2016-10-23] MEDS: METOPROLOL TARTRATE 50 MG TAB PO SCH ×2 (10:16→21:12)
[2016-10-23] MEDS: POTASSIUM CHLORIDE 25 MEQ EFFERVESCENT TAB PO SCH (10:16)
[2016-10-23] MEDS: DOCUSATE SODIUM 50 MG/SENNA 8.6 MG TAB PO SCH ×2 (10:16→21:00)
[2016-10-23] MEDS: VALSARTAN 160 MG TAB PO SCH (10:16)
[2016-10-23] MEDS: ASPIRIN EC 81 MG TABEC PO SCH (10:16)
[2016-10-23] MEDS: MIRTAZAPINE 15 MG TAB PO SCH (10:16)
[2016-10-23] MEDS: FUROSEMIDE 20 MG TAB PO SCH ×2 (10:16→21:12)
[2016-10-23] MEDS: NIFEdipine 30 MG SUSTAINED RELEASE TAB PO SCH (10:16)
[2016-10-23] MEDS: NYSTATIN/TRIAMCINOLONE CREAM 15 GM TOPICAL SCH ×2 (10:17→21:03)
[2016-10-23] MEDS: COLLAGENASE OINT 30 GM TUBE TOPICAL SCH (10:17)
--- NOTE | 2016-10-23 10:23 | HHI.FF ---
Infusion Therapy Patient Information Patient Weight 73.5 kg Diagnosis: Diagnosis MRSA foot - soft tissue infection. 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 [] May leave port accessed during therapy. [] May leave peripheral site accessed for duration of therapy. [x] If patient has SOB or respiratory distress, check oxygen saturation. If less than 90% or clinical signs of respiratory distress, administer oxygen at 2 L/min. via nasal cannula and notify physician. [x] Anaphylaxis/Reaction orders: * Stop infusion. * Keep IV line open with saline flush. * Notify physician. * Monitor vital signs every 15 minutes until symptoms resolve. * Check Oxygen saturation; Oxygen at 2 L/min. via nasal cannula if less than 90% or clinical signs of respiratory distress. * Administer diphenhydramine (Benadryl) 25 mg IV STAT, (unless patient has received as pre-med). May repeat once, if necessary. * Solu-Cortef 250 mg IVP over 30-60 seconds, use 100 mg vials for each dissolution. * Epinephrine (1mg/1 ml) 0.3 mg subcutaneously or IVP now with any signs of respiratory distress. * Check with physician for new additional pre-med orders if patient is re- challenged or re-treated. [x] May remove PICC line when treatment complete, after confirming with Physician. [x] If the patient is admitted to the hospital, the ED, or transferred via [facility] , complete transfer form including medication reconciliation order sheet. Som Pandey MD Oct 23, 2016 10:23 Physician. [x] If the patient is admitted to the hospital, the ED, or transferred via [facility] , complete transfer form including medication reconciliation order sheet. Laboratory Tests Weekly Labs: BMP, Vancomycin Trough Som Pandey MD Oct 23, 2016 10:23
[2016-10-23] MEDS: INSULIN DETEMIR 100 UNITS/ML VIAL SQ SCH (10:44)
[2016-10-23 11:02] LABS: BICARBONATE 29.3 MEQ/L (21.0-32.0); POTASSIUM 3.4 MEQ/L (3.5-5.1)
[2016-10-23] MEDS: SODIUM CHLORIDE 0.9% FLUSH 10 ML FLUSH IV FLUSH SCH ×3 (12:54→21:00)
[2016-10-23] MEDS: BUDESONIDE-FORMOTEROL 80/4.5 MCG INHALER INH SCH ×2 (12:58→21:00)
[2016-10-23] MEDS ORDERED: SODIUM CHLOR 0.9% 250 ML INJ 250 ML IV ONE (13:15)
--- NOTE | 2016-10-23 13:46 | HHI.IDPN ---
Note Infectious Disease Note Patient is awake. Reportedly not eating. Afebrile. No fever. PAST MEDICAL HISTORY: 1. Multiple sclerosis. 2. Hypertension. 3. Hypothyroidism. 4. Hypercholesterolemia. 5. Anemia. 6. History of CVA with residual right-sided weakness. ALLERGIES: NO KNOWN DRUG ALLERGIES. OBJECTIVE: Vital Signs Date Time Temp Pulse Resp B/P Pulse Ox O2 Delivery O2 Flow Rate FiO2 10/23/16 12:00 97.5 61 18 122/60 99 10/23/16 11:04 Nasal Cannula 2.00 10/23/16 08:39 96.5 55 18 98/54 100 99/51 10/23/16 04:00 97.6 58 16 118/56 100 10/23/16 00:00 97.8 72 18 120/74 98 10/22/16 20:00 97.6 74 18 122/59 97 10/22/16 19:31 96 Nasal Cannula 2.00 10/22/16 16:00 97.4 68 18 143/72 95 10/22/16 14:44 Nasal Cannula 2.00 10/22/16 14:40 Nasal Cannula 2.00 Laboratory Tests Test 10/23/16 05:05 Sodium Level 143 MEQ/L Potassium Level 3.4 MEQ/L Chloride Level 104 MEQ/L Carbon Dioxide Level 29.3 MEQ/L Anion Gap 10 MEQ/L Blood Urea Nitrogen 18 MG/DL Creatinine 1.17 MG/DL Estimat Glomerular Filtration 46 ML/MIN Rate Random Glucose 152 MG/DL Calcium Level 8.3 MG/DL Vancomycin level elevated. PHYSICAL EXAMINATION: GENERAL: NAD. HEENT: No icterus. Oropharynx without lesions. NECK: Supple. LUNGS: Decreased breath sounds. HEART: Regular S1 and S2. No murmurs, rubs or gallops. ABDOMEN: Soft, nontender. EXTREMITIES: The left heel ulcer wound clean. No surrounding erythema. SKIN: No diffuse rash. Mild hyperemia of the face. NEUROLOGIC: awake and responsive. PSYCH: Calm. IMPRESSION: 1. 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 MRSA (+) culture. 2. Urinary tract infection - marianne. 3. erythema at the face does not appear to be cellulitis. 4. AMS. Improved. 5. Decreased renal function. RECOMMENDATIONS: Stop Vancomycin. Can be discharged with wound dressing changes without antibiotics. I will sign off now. Som Pandey MD Oct 23, 2016 13:46
--- NOTE | 2016-10-23 17:44 | HHI.PR ---
Subjective Subjective Remarks resting in bed no appetite, Dry skin facial Debilitated BP 98/54, gradual dropping (Meena Cruz) Review of Systems Constitutional Constitutional: Fatigue, Weakness Constitutional Remarks 10 point ROS done positives noted (Meena Cruz) Pulmonary Respiratory: Shortness of Breath (low volumes) (Meena Cruz) Genitourinary Genitourinary: Frequency Remarks Catheter in UTI (Meena Cruz) Musculoskeletal MS: Weakness, Stiffness (Meena Cruz) Psychiatric Psychiatric Remarks Affect very quiet but answers simple questions (Meena Cruz) Vitals/Results Intake & Output 10/22/16 10/22/16 10/23/16 15:00 23:00 07:00 Intake Total 120 ml Output Total 175 ml 400 ml 100 ml Balance -55 ml -400 ml -100 ml Intake Oral 120 ml Output Urine Total 175 ml 400 ml 100 ml # Bowel Movements 0 Vital Signs Vital Signs Date Time Temp Pulse Resp B/P Pulse Ox O2 Delivery O2 Flow Rate FiO2 10/23/16 17:26 99 Nasal Cannula 2.00 10/23/16 12:00 97.5 61 18 122/60 99 10/23/16 11:04 Nasal Cannula 2.00 10/23/16 08:39 96.5 55 18 98/54 100 99/51 10/23/16 04:00 97.6 58 16 118/56 100 10/23/16 00:00 97.8 72 18 120/74 98 10/22/16 20:00 97.6 74 18 122/59 97 10/22/16 19:31 96 Nasal Cannula 2.00 (Meena Cruz) CBC/BMP: 10/21/16 0446 10/23/16 0505 Lab Results Laboratory Tests Test 10/23/16 05:05 Sodium Level 143 MEQ/L Potassium Level 3.4 MEQ/L Chloride Level 104 MEQ/L Carbon Dioxide Level 29.3 MEQ/L Anion Gap 10 MEQ/L Blood Urea Nitrogen 18 MG/DL Creatinine 1.17 MG/DL Estimat Glomerular Filtration 46 ML/MIN Rate Random Glucose 152 MG/DL Calcium Level 8.3 MG/DL Random Vancomycin Level 17.4 COMMENT (Meena Cruz. GIS WEB DEVELOPER) Physical Exam General General Appearance: Well Developed, No Acute Distress, Comfortable, Obese ( Meena Cruz M. GIS WEB DEVELOPER) Eyes Eye Exam: Pupils Equal, Pupils Reactive (Meena Cruz M. GIS WEB DEVELOPER) Ears & Nose Ears & Nose Exam: Nasal Mucosa [place] (Meena Cruz M. GIS WEB DEVELOPER) Throat Throat Exam: Oral Mucosa [place] & Moist (Meena Cruz M. GIS WEB DEVELOPER) Neck Neck Exam: Trachea Midline (Meena Cruz M. GIS WEB DEVELOPER) Pulmonary Resp Exam: Decreased Bases, Diminished Breath Sounds (Meena Cruz M. GIS WEB DEVELOPER) Cardiology CV Exam: Normal Sinus Rhythm, Good Perfusion (Meena Cruz M. GIS WEB DEVELOPER) Gastrointestinal/Abdomen GI Exam: Soft, Non-Tender, Bowel Sounds Present, Non-Distended GI Remarks Eating very minimal amounts if any States she is not hungry (Vida Cruzan M. GIS WEB DEVELOPER) Musculoskeletal MS Exam: Normal Tone, Atrophy, Unable to Ambulate (Meena Cruz M. GIS WEB DEVELOPER) Integumentary Skin Exam: Ulcer(s) (Meena Cruz. GIS WEB DEVELOPER) Extremeties Extremities Exam: Pedal Pulses Palpable, Trace Edema (Meena Cruz M. GIS WEB DEVELOPER) Neurologic Neuro Exam: Alert, Awake, Speech Clear, Moving All Extremities, No Focal Deficits (Vida Cruzan M. GIS WEB DEVELOPER) VTE Prophylaxis VTE Prophylaxis Meds: Heparin (Meena Cruz M. GIS WE[employer] DEVELOPER) Assessment/Plan Assessment/Plan Sepsis MRSA reported in the right foot wound Dyspnea, improved Multi-microbial urinary infection, culture showing MRSA/Proteus/Escherichia coli Cellulitis left side of the neck, improved Right heel ulcer with cellulitis, no evidence of osteomyelitis Status post debridement on 10/13/16 Conjunctivitis Bedridden status Hypoglycemia Management Appreciate consultants input, podiatry and ID , Start IV fluids for gentle hydration, D5NS at 50 cc an hour, beat P continues to trend down, potassium added to fluids Hypokalemia Potassium 3.4, encourage patient to take by mouth potassium but not drinking continue abx per ID recommends Vanco x 2 weeks, random trough decreased today 17.4 PICC done CM to arrange abx as SNF continue supplemental oxygen duonebs, encouraged coughing and deep breathing accucheck AC/HS with low dose ISS Mycolog ointment wound care and dressing change D/W RN D/W Dr. Chapman, seen on his behalf D/W pt, (Meena Cruz) Assessment/Plan patient seen and examined not eating much, decreased urine out put discussed with patient;s daughter at bedside in detail start i/v fluids monitor renal function, daughter wants the patient DNR now. however, if the patient does not perk up in the next day or two, would like to consult hospice discussed plan of care with Meena THOMPSON (Nury Chapman MD) Meena Cruz Oct 23, 2016 17:44 Nury Chapman MD Oct 23, 2016 19:29
[2016-10-23] MEDS ORDERED: POTASSIUM CHLORIDE 25 MEQ EFFERVESCENT TAB PO ONE (18:15)
[2016-10-23] MEDS: FLUCONAZOLE 100 MG TAB PO SCH (18:28)
[2016-10-23] MEDS: D5-NS + KCL 20 MEQ INJ 1,000 ML IV SCH (21:00)
[2016-10-24] VITALS: BP 148/67; PULSE 70; RESP 18; TEMP 97; O2SAT 98
[2016-10-24 04:00] VITALS: BP 139/65; PULSE 73; RESP 18; TEMP 96.9; O2SAT 98
[2016-10-24] MEDS: LEVOTHYROXINE SODIUM 100 MCG TAB PO SCH (05:05)
[2016-10-24] MEDS: HEPARIN SODIUM - SQ 10,000 UNITS/ML VIAL SQ SCH ×2 (05:05→17:35)
[2016-10-24] MEDS: LEVOTHYROXINE SODIUM 75 MCG TAB PO SCH (05:05)
[2016-10-24] MEDS: INSULIN ASPART SUPPLEMENTAL SCALE SQ SCH ×4 (05:13→21:01)
[2016-10-24 05:18] LABS: AUTOMATED NEUTROPHIL # 4.5 TH/MM3 (1.8-7.7); BASOPHIL # 0.1 TH/MM3 (0-0.2); BASOPHIL % 0.8 % (0.0-2.0); EOSINOPHIL # 0.5 TH/MM3 (0-0.4); EOSINOPHIL % 6.4 % (0.0-4.0); HEMATOCRIT 35.3 % (35.0-46.0); HEMO FLAGS DIFF FINAL; LYMPH % 15.6 % (9.0-44.0); LYMPHOCYTE # 1.1 TH/MM3 (1.0-4.8); MEAN CELL VOLUME 77.1 FL (80.0-100.0); MEAN CORPUSCULAR HEMOGLOBIN 25.8 PG (27.0-34.0); MEAN CORPUSCULAR HGB CONC 33.4 % (32.0-36.0); MONO % 14.3 % (0.0-8.0); NEUT % 62.9 % (16.0-70.0); PLATELET COUNT 146 TH/MM3 (150-450); RED BLOOD COUNT 4.57 MIL/MM3 (4.00-5.30); RED CELL DISTRIBUTION WIDTH 17.5 % (11.6-17.2); WHITE BLOOD COUNT 7.2 TH/MM3 (4.0-11.0)
[2016-10-24 05:27] LABS: BICARBONATE 28.3 MEQ/L (21.0-32.0); POTASSIUM 3.5 MEQ/L (3.5-5.1)
[2016-10-24 08:00] VITALS: BP 113/55; PULSE 84; RESP 20; TEMP 97.2; O2SAT 97
[2016-10-24] MEDS: ASPIRIN EC 81 MG TABEC PO SCH (08:32)
[2016-10-24] MEDS: MIRTAZAPINE 15 MG TAB PO SCH (08:32)
[2016-10-24] MEDS: NIFEdipine 30 MG SUSTAINED RELEASE TAB PO SCH (08:32)
[2016-10-24] MEDS: METOPROLOL TARTRATE 50 MG TAB PO SCH ×2 (08:32→20:57)
[2016-10-24] MEDS: VALSARTAN 160 MG TAB PO SCH (08:33)
[2016-10-24] MEDS: FUROSEMIDE 20 MG TAB PO SCH ×2 (08:33→17:33)
[2016-10-24] MEDS: POTASSIUM CHLORIDE 25 MEQ EFFERVESCENT TAB PO SCH (08:33)
[2016-10-24] MEDS: BUDESONIDE-FORMOTEROL 80/4.5 MCG INHALER INH SCH ×2 (08:34→20:57)
[2016-10-24] MEDS: NYSTATIN/TRIAMCINOLONE CREAM 15 GM TOPICAL SCH ×2 (08:34→20:58)
[2016-10-24] MEDS: COLLAGENASE OINT 30 GM TUBE TOPICAL SCH (08:35)
[2016-10-24] MEDS: DOCUSATE SODIUM 50 MG/SENNA 8.6 MG TAB PO SCH ×2 (08:36→20:56)
[2016-10-24] MEDS: INSULIN DETEMIR 100 UNITS/ML VIAL SQ SCH (08:38)
[2016-10-24] MEDS: SODIUM CHLORIDE 0.9% FLUSH 10 ML FLUSH IV FLUSH SCH ×3 (09:00→20:57)
[2016-10-24 12:00] VITALS: BP 126/57; PULSE 78; RESP 22; TEMP 97.2; O2SAT 98
--- NOTE | 2016-10-24 15:41 | HHI.PR ---
Subjective Subjective Remarks resting in bed no appetite, not eating anything today color pale afebrile (Meena Cruz) Review of Systems Constitutional Constitutional: Fatigue, Weakness Constitutional Remarks 10 point ROS done positives noted (Meena Cruz) Pulmonary Respiratory: Shortness of Breath (low volumes) (Meena Cruz) GI/Abdomen GI/Abdomen Remarks not eating, no appetite (Meena Cruz) Genitourinary Genitourinary: Frequency Remarks Catheter in UTI (Meena Cruz) Musculoskeletal MS: Weakness, Stiffness (Meena Cruz) Psychiatric Psychiatric Remarks not following conversation today. Answered 1 question about eating appropriately (Meena Cruz) Vitals/Results Intake & Output 10/23/16 10/23/16 10/24/16 15:00 23:00 07:00 Intake Total 80 ml 240 ml 200 ml Output Total 550 ml 250 ml Balance 80 ml -310 ml -50 ml Intake Oral 80 ml 240 ml 200 ml Output Urine Total 550 ml 250 ml Vital Signs Vital Signs Date Time Temp Pulse Resp B/P Pulse Ox O2 Delivery O2 Flow Rate FiO2 10/24/16 12:00 97.2 78 22 126/57 98 10/24/16 08:00 97.2 84 20 113/55 97 10/24/16 04:00 96.9 73 18 139/65 98 10/24/16 00:00 97.0 70 18 148/67 98 10/23/16 20:00 97.8 79 20 152/69 97 10/23/16 17:26 99 Nasal Cannula 2.00 10/23/16 16:00 97.4 76 18 159/62 100 (Meena Cruz) CBC/BMP: 10/24/16 0400 10/24/16 0400 Lab Results Laboratory Tests Test 10/24/16 04:00 White Blood Count 7.2 TH/MM3 Red Blood Count 4.57 MIL/MM3 Hemoglobin 11.8 GM/DL Hematocrit 35.3 % Mean Corpuscular Volume 77.1 FL Mean Corpuscular Hemoglobin 25.8 PG Mean Corpuscular Hemoglobin 33.4 % Concent Red Cell Distribution Width 17.5 % Platelet Count 146 TH/MM3 Mean Platelet Volume 9.6 FL Neutrophils (%) (Auto) 62.9 % Lymphocytes (%) (Auto) 15.6 % Monocytes (%) (Auto) 14.3 % Eosinophils (%) (Auto) 6.4 % Basophils (%) (Auto) 0.8 % Neutrophils # (Auto) 4.5 TH/MM3 Lymphocytes # (Auto) 1.1 TH/MM3 Monocytes # (Auto) 1.0 TH/MM3 Eosinophils # (Auto) 0.5 TH/MM3 Basophils # (Auto) 0.1 TH/MM3 CBC Comment DIFF FINAL Differential Comment Sodium Level 139 MEQ/L Potassium Level 3.5 MEQ/L Chloride Level 102 MEQ/L Carbon Dioxide Level 28.3 MEQ/L Anion Gap 9 MEQ/L Blood Urea Nitrogen 21 MG/DL Creatinine 1.34 MG/DL Estimat Glomerular Filtration 39 ML/MIN Rate Random Glucose 233 MG/DL Calcium Level 8.8 MG/DL Current Medications Administered Medications Medications (Trade) Dose Ordered Sig/Tasia Route PRN Reason Start Time Stop Time Status Last Admin Dose Admin Sodium Chloride (NS Flush) 2 ml BID IV FLUSH 10/10/16 21:00 10/23/16 12:54 Heparin Sodium (Porcine) (Heparin Inj) 5,000 units Q12H SQ 10/10/16 17:00 10/24/16 05:05 Senna/Docusate Sodium (Luz Marina-Colace) 1 tab BID PO 10/10/16 21:00 10/24/16 08:36 Aspirin (Ecotrin Ec) 81 mg DAILY PO 10/11/16 09:00 10/24/16 08:32 Clonidine (Catapres-Tts 0.1mg Patch.7d) 1 patch Q7D T-DERMAL 10/15/16 09:00 10/22/16 10:52 Lorazepam (Ativan) 0.5 mg Q8H PRN PO ANXIETY 10/10/16 15:45 10/19/16 20:44 Mirtazapine (Remeron) 15 mg DAILY PO 10/11/16 09:00 10/24/16 08:32 Valsartan (Diovan) 320 mg DAILY PO 10/11/16 09:00 10/24/16 08:33 Levothyroxine Sodium (Synthroid) 100 mcg DAILY@06 PO 10/11/16 06:00 10/24/16 05:05 Miscellaneous Information 1 Q7D T-DERMAL 10/15/16 09:00 10/22/16 10:52 Levothyroxine Sodium (Synthroid) 75 mcg DAILY@06 PO 10/11/16 06:00 10/24/16 05:05 Nystatin/ Triamcinolone Acetonide (Mycolog Ii Cream) 1 applic BID TOPICAL 10/11/16 21:00 10/24/16 08:34 Collagenase (Santyl Oint) 1 applic DAILY TOPICAL 10/12/16 09:00 10/24/16 08:35 Clonidine (Catapres) 0.1 mg Q6H PRN PO SBP>160, DBP>90 10/12/16 06:15 10/22/16 13:16 Metoprolol Tartrate (Lopressor) 50 mg BID PO 10/12/16 21:00 10/24/16 08:32 Enalaprilat (Vasotec Inj) 1.25 mg Q6H PRN IV PUSH SBP>160, DBP>90 10/13/16 22:45 10/20/16 23:20 Nifedipine (Procardia Xl) 30 mg DAILY PO 10/15/16 09:00 10/24/16 08:32 Fluconazole (Diflucan) 100 mg Q24H PO 10/16/16 14:00 10/23/16 18:28 Insulin Detemir (Levemir Inj) 30 units DAILY SQ 10/17/16 09:00 10/24/16 08:38 Acetaminophen (Ofirmev Inj) 650 mg Q4H PRN IV fever 10/16/16 14:45 10/16/16 15:19 Furosemide (Lasix) 20 mg BID@,18 PO 10/17/16 09:00 10/24/16 08:33 Potassium Bicarb/ Potassium Chloride (K-Lyte Cl Eff) 25 meq DAILY PO 10/19/16 18:00 10/24/16 08:33 Budesonide/ Formoterol Fumarate (Symbicort 80-4.5 Mcg Inh) 1 puff Q12HR INH 10/19/16 21:00 10/24/16 08:34 Sodium Chloride (NS Flush) See Protocol DAILY IV FLUSH 10/22/16 09:00 10/23/16 12:54 Heparin Sodium (Porcine) See Protocol DAILY IV FLUSH 10/22/16 09:00 10/23/16 12:54 Potassium Chloride/Dextrose/ Sod Cl (D5-NS + KCl 20 Meq Inj) 1,000 ml @ 50 mls/hr Q20H IV 10/23/16 19:30 10/23/16 21:00 (Meena Cruz) Physical Exam General General Appearance: Well Developed, No Acute Distress, Comfortable, Pale, Obese (Meena Cruz) Eyes Eye Exam: Pupils Equal, Pupils Reactive (Meena Cruz) Ears & Nose Ears & Nose Exam: Nasal Mucosa [place] (pale) (Meena Cruz) Throat Throat Exam: Oral Mucosa [place] & Moist (pale) (Meena Cruz) Neck Neck Exam: Trachea Midline (Meena Cruz) Pulmonary Resp Exam: Decreased Bases, Diminished Breath Sounds (Meena Cruz) Cardiology CV Exam: Normal Sinus Rhythm, Good Perfusion (Meena Cruz) Gastrointestinal/Abdomen GI Exam: Soft, Non-Tender, Bowel Sounds Present, Non-Distended GI Remarks Not Eating anything today States she is not hungry (Meena Cruz) Musculoskeletal MS Exam: Normal Tone, Atrophy, Unable to Ambulate (Meena Cruz) Integumentary Skin Exam: Ulcer(s) (Meena Cruz) Extremeties Extremities Exam: Pedal Pulses Palpable, Trace Edema (Meena Cruz) Neurologic Neuro Exam: Alert, Awake, Speech Clear, Moving All Extremities, No Focal Deficits (Meena Cruz) VTE Prophylaxis VTE Prophylaxis Meds: Heparin (Meena Cruz) Assessment/Plan Assessment/Plan Assessment/Plan Sepsis MRSA reported in the right foot wound Dyspnea, improved Multi-microbial urinary infection, culture showing MRSA/Proteus/Escherichia coli Cellulitis left side of the neck, improved Right heel ulcer with cellulitis, no evidence of osteomyelitis Status post debridement on 10/13/16 Conjunctivitis Bedridden status Hypoglycemia Anorexia Management Appreciate consultants input, podiatry and ID , Start IV fluids for gentle hydration, D5NS at 50 cc an hour, cont. IV Vancomycin , PAT not improving Hypokalemia resolved, 3.5 continue abx per ID Dr. Chapman spoke with daughter and updated on patient general condition and declining, Hospice consult for options. Patient was made DNR yesterday. continue supplemental oxygen, 2L wearing continuous duonebs, encouraged coughing and deep breathing accucheck AC/HS with low dose ISS Mycolog ointment wound care and dressing change , continue to monitor for her comfort. D/W RN D/W Dr. Chapman, seen on his behal (Meena Cruz) Assessment/Plan PATIENT seen and examined patient not eating much at all declining renal function long discussion with daughter yesterday and today wants to proceed with Hospice consult consult Hospice Plan of care discussed with patient's daughter and Meena THOMPSON (Nury Chapman MD ) Meena Cruz Oct 24, 2016 15:41 Nury Chapman MD Oct 24, 2016 15:50
[2016-10-24 16:00] VITALS: BP 127/54; PULSE 80; RESP 18; TEMP 97.2; O2SAT 98
[2016-10-24] MEDS: D5-NS + KCL 20 MEQ INJ 1,000 ML IV SCH (17:34)
[2016-10-24] MEDS: FLUCONAZOLE 100 MG TAB PO SCH (17:34)
[2016-10-24 20:00] VITALS: BP 165/72; PULSE 78; RESP 18; TEMP 97.4; O2SAT 99
[2016-10-25] VITALS: BP 158/73; PULSE 70; RESP 18; TEMP 97.5; O2SAT 97
[2016-10-25 04:00] VITALS: BP 120/58; PULSE 52; RESP 16; TEMP 97; O2SAT 98
[2016-10-25] MEDS: LEVOTHYROXINE SODIUM 75 MCG TAB PO SCH (06:00)
[2016-10-25] MEDS: LEVOTHYROXINE SODIUM 100 MCG TAB PO SCH (06:00)
[2016-10-25] MEDS: HEPARIN SODIUM - SQ 10,000 UNITS/ML VIAL SQ SCH ×2 (06:29→17:00)
[2016-10-25] MEDS: INSULIN ASPART SUPPLEMENTAL SCALE SQ SCH ×3 (06:30→16:52)
[2016-10-25 08:00] VITALS: BP 145/65; PULSE 85; RESP 18; TEMP 97.9; O2SAT 96
[2016-10-25] MEDS: SODIUM CHLORIDE 0.9% FLUSH 10 ML FLUSH IV FLUSH SCH ×2 (09:00)
[2016-10-25] MEDS: POTASSIUM CHLORIDE 25 MEQ EFFERVESCENT TAB PO SCH (09:32)
[2016-10-25] MEDS: MIRTAZAPINE 15 MG TAB PO SCH (09:32)
[2016-10-25] MEDS: DOCUSATE SODIUM 50 MG/SENNA 8.6 MG TAB PO SCH (09:32)
[2016-10-25] MEDS: FUROSEMIDE 20 MG TAB PO SCH (09:32)
[2016-10-25] MEDS: METOPROLOL TARTRATE 50 MG TAB PO SCH (09:32)
[2016-10-25] MEDS: NIFEdipine 30 MG SUSTAINED RELEASE TAB PO SCH (09:33)
[2016-10-25] MEDS: ASPIRIN EC 81 MG TABEC PO SCH (09:33)
[2016-10-25] MEDS: VALSARTAN 160 MG TAB PO SCH (09:33)
[2016-10-25] MEDS: NYSTATIN/TRIAMCINOLONE CREAM 15 GM TOPICAL SCH (09:34)
[2016-10-25] MEDS: BUDESONIDE-FORMOTEROL 80/4.5 MCG INHALER INH SCH (09:34)
[2016-10-25] MEDS: COLLAGENASE OINT 30 GM TUBE TOPICAL SCH (09:35)
[2016-10-25] MEDS: INSULIN DETEMIR 100 UNITS/ML VIAL SQ SCH (09:36)
[2016-10-25 12:00] VITALS: BP 139/66; PULSE 75; RESP 18; TEMP 97.7; O2SAT 95
--- NOTE | 2016-10-25 15:10 | HHI.PR ---
Subjective Subjective Remarks awake , answers simple questions resting in bed not eating, encouraged her to eat anything she wants color pale Hospice just visited. (Meena Cruz) Review of Systems Constitutional Constitutional: Fatigue, Weakness Constitutional Remarks 10 point ROS done positives noted (Meena Cruz) Pulmonary Respiratory: Shortness of Breath (low volumes) (Meena Cruz) GI/Abdomen GI/Abdomen Remarks not eating, no appetite (Meena Cruz) Genitourinary Genitourinary: Frequency Remarks Catheter in UTI (Meena Cruz) Musculoskeletal MS: Weakness, Stiffness (Meena Cruz) Integumentary Skin Remarks pale (Meena Cruz) Neurologic Neurologic: Lightheaded (Meena Cruz) Psychiatric Psychiatric Remarks answered simple questions, (Meena Cruz) Vitals/Results Intake & Output 10/24/16 10/24/16 10/25/16 14:59 22:59 06:59 Intake Total 360 ml Output Total 1500 ml 350 ml Balance -1140 ml -350 ml Intake Oral 360 ml Output Urine Total 1500 ml 350 ml # Bowel Movements 1 Vital Signs Vital Signs Date Time Temp Pulse Resp B/P Pulse Ox O2 Delivery O2 Flow Rate FiO2 10/25/16 12:00 97.7 75 18 139/66 95 10/25/16 08:00 97.9 85 18 145/65 96 10/25/16 04:00 97.0 52 16 120/58 98 10/25/16 00:00 97.5 70 18 158/73 97 10/24/16 20:00 97.4 78 18 165/72 99 10/24/16 16:00 97.2 80 18 127/54 98 (Meena Cruz) CBC/BMP: 10/24/16 0400 10/24/16 0400 Imaging Remarks Last Impressions Chest X-Ray 10/21/16 0000 Signed Impressions: Service Date/Time: Friday, October 21, 2016 15:32 - CONCLUSION: Adequate placement of left-sided PICC line. Eduin Yancey MD Foot MRI 10/11/16 0000 Signed Impressions: Service Date/Time: September 18:49 - CONCLUSION: No definite signs of osteomyelitis or abscess. Jarrett Balderrama MD Head CT 10/10/16 1228 Signed Impressions: Service Date/Time: Monday, October 10, 2016 13:34 - CONCLUSION: Chronic and small vessel ischemic changes without any evidence for acute hemorrhage or mass effect. Jarrett Balderrama MD Current Medications Administered Medications Medications (Trade) Dose Ordered Sig/Tasia Route PRN Reason Start Time Stop Time Status Last Admin Dose Admin Sodium Chloride (NS Flush) 2 ml BID IV FLUSH 10/10/16 21:00 10/24/16 20:57 Heparin Sodium (Porcine) (Heparin Inj) 5,000 units Q12H SQ 10/10/16 17:00 10/25/16 06:29 Senna/Docusate Sodium (Luz Marina-Colace) 1 tab BID PO 10/10/16 21:00 10/25/16 09:32 Aspirin (Ecotrin Ec) 81 mg DAILY PO 10/11/16 09:00 10/25/16 09:33 Clonidine (Catapres-Tts 0.1mg Patch.7d) 1 patch Q7D T-DERMAL 10/15/16 09:00 10/22/16 10:52 Lorazepam (Ativan) 0.5 mg Q8H PRN PO ANXIETY 10/10/16 15:45 10/19/16 20:44 Mirtazapine (Remeron) 15 mg DAILY PO 10/11/16 09:00 10/25/16 09:32 Valsartan (Diovan) 320 mg DAILY PO 10/11/16 09:00 10/25/16 09:33 Levothyroxine Sodium (Synthroid) 100 mcg DAILY@06 PO 10/11/16 06:00 10/24/16 05:05 Miscellaneous Information 1 Q7D T-DERMAL 10/15/16 09:00 10/22/16 10:52 Levothyroxine Sodium (Synthroid) 75 mcg DAILY@06 PO 10/11/16 06:00 10/24/16 05:05 Nystatin/ Triamcinolone Acetonide (Mycolog Ii Cream) 1 applic BID TOPICAL 10/11/16 21:00 10/25/16 09:34 Collagenase (Santyl Oint) 1 applic DAILY TOPICAL 10/12/16 09:00 10/25/16 09:35 Clonidine (Catapres) 0.1 mg Q6H PRN PO SBP>160, DBP>90 10/12/16 06:15 10/22/16 13:16 Metoprolol Tartrate (Lopressor) 50 mg BID PO 10/12/16 21:00 10/25/16 09:32 Enalaprilat (Vasotec Inj) 1.25 mg Q6H PRN IV PUSH SBP>160, DBP>90 10/13/16 22:45 10/20/16 23:20 Nifedipine (Procardia Xl) 30 mg DAILY PO 10/15/16 09:00 10/25/16 09:33 Fluconazole (Diflucan) 100 mg Q24H PO 10/16/16 14:00 10/24/16 17:34 Insulin Detemir (Levemir Inj) 30 units DAILY SQ 10/17/16 09:00 10/25/16 09:36 Acetaminophen (Ofirmev Inj) 650 mg Q4H PRN IV fever 10/16/16 14:45 10/16/16 15:19 Furosemide (Lasix) 20 mg BID@09,18 PO 10/17/16 09:00 10/25/16 09:32 Potassium Bicarb/ Potassium Chloride (K-Lyte Cl Eff) 25 meq DAILY PO 10/19/16 18:00 10/25/16 09:32 Budesonide/ Formoterol Fumarate (Symbicort 80-4.5 Mcg Inh) 1 puff Q12HR INH 10/19/16 21:00 10/25/16 09:34 Sodium Chloride (NS Flush) See Protocol DAILY IV FLUSH 10/22/16 09:00 10/23/16 12:54 Heparin Sodium (Porcine) See Protocol DAILY IV FLUSH 10/22/16 09:00 10/23/16 12:54 Potassium Chloride/Dextrose/ Sod Cl (D5-NS + KCl 20 Meq Inj) 1,000 ml @ 50 mls/hr Q20H IV 10/23/16 19:30 10/24/16 17:34 (Meena Cruz) Physical Exam General General Appearance: Well Developed, No Acute Distress, Comfortable, Pale, Obese Appearance Remarks Mild obesity (Olton,Meena M. AIRCREWMAN) Eyes Eye Exam: Pupils Equal, Pupils Reactive (NnacyMeena M. AIRCREWMAN) Ears & Nose Ears & Nose Exam: Nasal Mucosa [place] (pale) (OltonMeena M. AIRCREWMAN) Throat Throat Exam: Oral Mucosa [place] & Moist (pale) (NancyMeena M. AIRCREWMAN) Neck Neck Exam: Trachea Midline (Nancy,Meena M. AIRCREWMAN) Pulmonary Resp Exam: Decreased Bases, Diminished Breath Sounds, Poor Inspiratory Effort ( low volumes) (OltonMeena M. AIRCREWMAN) Cardiology CV Exam: Normal Sinus Rhythm, Good Perfusion (OltonMeena M. AIRCREWMAN) Gastrointestinal/Abdomen GI Exam: Soft, Non-Tender, Bowel Sounds Present, Non-Distended GI Remarks Not Eating (NancyMeena M. AIRCREWMAN) Genitourinary Remarks Catheter (OltonMeena M. AIRCREWMAN) Musculoskeletal MS Exam: Normal Tone, Atrophy, Unable to Ambulate (Olton,Meena M. AIRCREWMAN) Integumentary Skin Exam: Ulcer(s) (NancyMeena M. AIRCREWMAN) Extremeties Extremities Exam: Pedal Pulses Palpable, Trace Edema (OltonMeena M. AIRCREWMAN) Neurologic Neuro Exam: Alert, Awake, Speech Clear, Moving All Extremities, No Focal Deficits (NancyMeena M. AIRCREWMAN) VTE Prophylaxis VTE Prophylaxis Meds: Heparin (NancyMeena M. AIRCREWMAN) Assessment/Plan Assessment/Plan Assessment/Plan Assessment/Plan Sepsis MRSA reported in the right foot wound Dyspnea, improved Multi-microbial urinary infection, culture showing MRSA/Proteus/Escherichia coli Cellulitis left side of the neck, improved Right heel ulcer with cellulitis, no evidence of osteomyelitis Status post debridement on 10/13/16 Conjunctivitis Bedridden status Hypoglycemia Anorexia Management Vital signs reviewed, afebrile heart rate while at range between 50-75 Appreciate consultants input, podiatry and ID , Planned for discharge today IV fluids DC' CODE STATUS DO NOT RESUSCITATE Hospice consult today, just spoke with nurse Анна, states patient is cleared to go back to [facility] with hospice attending her care. Medications will be established with hospice physician according to Анна. Treatments and care plan will be based around patient's comfort. Patient is not asking for any food , but encouraged her to eat anything she thinks she would like. Supportive care to patient No one else is in the room this time Maintain dressing clean dry and intact for her comfort D/W RN Discussed with [facility] hospice nurse Discussed with Dr. chapman, seen on her behalf (Meena Cruz) Assessment/Plan patient seen and examined agree with above assessment and plan ok to d/c to SNF with hospice discussed with Meena THOMPSON (Nury Chapman MD) Meena Cruz Oct 25, 2016 15:10 Nury Chapman MD Oct 25, 2016 16:14
[2016-10-25 16:00] VITALS: BP 137/65; PULSE 77; RESP 18; TEMP 97.3; O2SAT 97
[2016-10-25] MEDS: FLUCONAZOLE 100 MG TAB PO SCH (17:14)
--- NOTE | 2016-10-25 17:29 | HHI.DS ---
Discharge Summary Admission Date Oct 10, 2016 at 19:16 Discharge Date: Oct 25, 2016 Admitting Diagnosis AMS; UTI; ?MS exacerbation Brief History This was a 71-year-old white female who was brought to the emergency department from the [place] [facility] with altered mental status. The patient was a resident of [facility]. She was noted not to be cooperating with a usual care and was less responsive and became obtunded and was brought to the emergency department for evaluation. She complained of pain all over after she got to the emergency department. She was noted to have an area of redness at the left heel, which is painful. A urinalysis was performed and it was remarkable with many white cells and urine culture came back with gram-negative diego. Blood cultures were also obtained and the results are pending. The patient has no fever. White count is normal. CBC/BMP: 10/24/16 0400 10/24/16 0400 Significant Findings Laboratory Tests Test 10/23/16 10/24/16 05:05 04:00 Potassium Level 3.4 MEQ/L (3.5-5.1) Creatinine 1.17 MG/DL 1.34 MG/DL (0.50-1.00) (0.50-1.00) Estimat Glomerular Filtration 46 ML/MIN (>89) 39 ML/MIN (>89) Rate Random Glucose 152 MG/DL 233 MG/DL (74-106) (74-106) Calcium Level 8.3 MG/DL (8.5-10.1) Mean Corpuscular Volume 77.1 FL (80.0-100.0) Mean Corpuscular Hemoglobin 25.8 PG (27.0-34.0) Red Cell Distribution Width 17.5 % (11.6-17.2) Platelet Count 146 TH/MM3 (150-450) Monocytes (%) (Auto) 14.3 % (0.0-8.0) Eosinophils (%) (Auto) 6.4 % (0.0-4.0) Monocytes # (Auto) 1.0 TH/MM3 (0-0.9) Eosinophils # (Auto) 0.5 TH/MM3 (0-0.4) Blood Urea Nitrogen 21 MG/DL (7-18) Imaging Last Impressions Chest X-Ray 10/21/16 0000 Signed Impressions: Service Date/Time: Friday, October 21, 2016 15:32 - CONCLUSION: Adequate placement of left-sided PICC line. Eduin Yancey MD Foot MRI 10/11/16 0000 Signed Impressions: Service Date/Time: September 18:49 - CONCLUSION: No definite signs of osteomyelitis or abscess. Jarrett Balderrama MD Head CT 10/10/16 1228 Signed Impressions: Service Date/Time: Monday, October 10, 2016 13:34 - CONCLUSION: Chronic and small vessel ischemic changes without any evidence for acute hemorrhage or mass effect. Jarrett Balderrama MD PE at Discharge General General Appearance: Well Developed, No Acute Distress, Comfortable, Obese Eyes Eye Exam: Pupils Equal, Pupils Reactive Ears & Nose Ears & Nose Exam: Nasal Mucosa [place] Throat Throat Exam: Oral Mucosa [place] & Moist Neck Neck Exam: Trachea Midline Pulmonary Resp Exam: Decreased Bases Cardiology CV Exam: Normal Sinus Rhythm, Good Perfusion Gastrointestinal/Abdomen GI Exam: Soft, Non-Tender, Bowel Sounds Present, Non-Distended Genitourinary Remarks STARKS Musculoskeletal MS Exam: Normal Tone, Atrophy, Unable to Ambulate Integumentary Skin Exam: Ulcer(s) Skin Remarks facial erythema, fungal rash left axillary region Extremeties Extremities Exam: Pedal Pulses Palpable, Trace Edema Neurologic Neuro Exam: Alert, Awake, Speech Clear, Moving All Extremities, No Focal Deficits VTE Prophylaxis VTE Prophylaxis Meds: Heparin Hospital Course THese are the diagnosis used to treat patient during hospital stay. Sepsis MRSA reported in the right foot wound Dyspnea, improved Multi-microbial urinary infection, culture showing MRSA/Proteus/Escherichia coli Cellulitis left side of the neck, improved Right heel ulcer with cellulitis, no evidence of osteomyelitis Status post debridement on 10/13/16 Conjunctivitis Bedridden status Hypoglycemia Appreciate consultants input, podiatry and ID and Hospice Initiated and continue abx per ID recommends Vancomycin for x 2 weeks PICC done d/w Dr. Katherin Santana random elevated, recommends to repeat tomorrow before dc continue supplemental oxygen used on admission along with duo nebs / Advair accucheck AC/HS with low dose ISS monitored throughout hospital stay Mycolog ointment used for wound care and dressing change Discharge planning was initiated, 48 hours before her discharge[address] Dr[address] neri spoke to the daughter on several different occasions given her medical updates on on the patient. Patient is not eating if any minimal amounts and states that she is not hungry. She appears to have failure to thrive and is not appearing to understand the full course of treatment and the reason to need to eat to survive. Discharge options changed at this point. Due to the multiple medical dilemmas, patient's daughter decided DO NOT RESUSCITATE was the best CODE STATUS for their mom. 24 more hours were given to see if patient would turn around and initiate hunger, but there were no acute changes. Hospice was consult could, met with patient and spoke to patient's daughter on the phone. Discharge planning back to [facility] was obtained with hospice to take over her care. Patient smiled and was glad to be going back to her home [facility]. General condition deteriorated on discharge. Pt Condition on Discharge: Deteriorating Discharge Disposition: Hospice/[facility] Facility Discharge Instructions DIET: Follow Instructions for: As Tolerated, No Restrictions Activities you can perform: Regular-No Restrictions Continued Medications: Clonidine 168 HR Patch (Clonidine 168 HR Patch) 0.1 Mg/24 Hr Patch 1 PATCH T-DERMAL Q7D Blood Pressure Management #4 Ref 0 PATCH Furosemide (Lasix) 40 Mg Tab 40 MG PO DAILY #30 Ref 0 TAB Insulin Detemir Inj (Levemir Flextouch Pen Inj) 300 unit/3 ML Pen 20 UNITS SQ HS Blood Sugar Management Ref 0 PEN Insulin Detemir Inj (Levemir Flextouch Pen Inj) 300 unit/3 ML Pen 50 UNITS SQ DAILY Blood Sugar Management Ref 0 PEN Levothyroxine (Levothyroxine) 175 Mcg Tab 175 MCG PO DAILY Thyroid #30 Ref 0 TAB Metoprolol Tartrate (Metoprolol Tartrate) 50 Mg Tab 50 MG PO DAILY #30 Ref 0 TAB Mirtazapine (Remeron) 15 Mg Tab 15 MG PO DAILY Depression Control #30 Ref 0 TAB Ondansetron Inj (Ondansetron Inj) 4 Mg/2 Ml Inj 8 MG IM DAILY PRN NAUSEA OR VOMITING #1 Ref 0 VIAL Discontinued Medications: Aspirin DR (Aspirin Adult Low Strength) 81 Mg Tabdr 81 MG PO DAILY TAB Cholecalciferol (Vitamin D3) 50,000 Unit Cap 86795 UNITS PO Q7D Nutritional Supplement #30 Ref 0 CAP Dextrose Gel (Glucose Gel) 40 % Gel 1 TUBE PO ONCE PRN BLOOD SUGAR < 60 #1 Ref 0 TUBE Glucagon (Rdna) Inj Kit (Glucagon Emergency Inj Kit) 1 Mg Kit 1 MG IM ONCE PRN Blood Sugar Management #1 Ref 0 KIT Insulin Lispro (Human) Inj (Humalog Inj) 1,000 Unit/10 Ml Vial 6 UNITS SQ DAILY Blood Sugar Management #1 Ref 0 VIAL Insulin Lispro (Human) Inj (Humalog Inj) 1,000 Unit/10 Ml Vial 4 UNITS SQ BID Twice a day before breakfast and dinner Blood Sugar Management # 1 Ref 0 VIAL Ipratropium-Albuterol Neb (Duoneb) 0.5-2.5 Mg/3 Ml Neb 3 ML NEB Q6HR PRN SHORTNESS OF BREATH #30 Ref 0 NEBULE Lorazepam (Ativan) 0.5 Mg Tab 0.5 MG PO Q8H PRN ANXIETY Ref 0 TAB Nystatin-Triamcinolone (Nystatin-Triamcinolone) 100,000-0.1 Unit/Gm Cream 1 APPLIC TOPICAL TID Apply to rash on neck until resolved Infection #15 Ref 0 GM Potassium Chloride ER (Klor-Con 10) 10 Meq Tab 10 MEQ PO DAILY Electrolyte Replacement #30 Ref 0 TAB Teriflunomide (Aubagio) 14 Mg Tab 14 MG PO DAILY Multiple sclerosis #30 Ref 0 TAB Valsartan (Diovan) 320 Mg Tab 320 MG PO DAILY #30 Ref 0 TAB ([Abh Gel]) 1 APPLIC T-DERMAL Q4HR Rotate site with each application PRN ANXIETY Meena Cruz Oct 25, 2016 17:29
== END 2016-10-25 18:23 | DRG 570 ==
LOC: NEPC 11:09 → NEDA 15:37 → NEPGCP 16:49 → OBSVTOIN 19:16 → HOCB 10-13 07:50 → NEPGCP 10-13 07:54 → HOCB 10-13 09:35 → HOCA 10-13 11:56 → HOCB 10-22 21:32 → HOCA 10-22 21:41
PROVIDERS: ADMIT Specialist; ATTEND Specialist
PROC: 0JBQ0ZZ Excision of Right Foot Subcutaneous Tissue and Fascia, Open Approach (ICD-10-PCS; principal; 2016-10-15)
DX: L03.116 Cellulitis of left lower limb (principal); A41.9 Sepsis, unspecified organism; N17.9 Acute kidney failure, unspecified; I69.351 Hemiplegia and hemiparesis following cerebral infarction affecting right dominant side; L97.419 Non-pressure chronic ulcer of right heel and midfoot with unspecified severity; L03.221 Cellulitis of neck; N39.0 Urinary tract infection, site not specified; T83.511A Infection and inflammatory reaction due to indwelling urethral catheter, initial encounter; E11.621 Type 2 diabetes mellitus with foot ulcer; E11.628 Type 2 diabetes mellitus with other skin complications; B95.62 Methicillin resistant Staphylococcus aureus infection as the cause of diseases classified elsewhere; E03.9 Hypothyroidism, unspecified; E11.649 Type 2 diabetes mellitus with hypoglycemia without coma; E87.6 Hypokalemia; G35 Multiple sclerosis; I10 Essential (primary) hypertension; I25.10 Atherosclerotic heart disease of native coronary artery without angina pectoris; H10.9 Unspecified conjunctivitis; Y84.6 Urinary catheterization as the cause of abnormal reaction of the patient, or of later complication, without mention of misadventure at the time of the procedure; R62.7 Adult failure to thrive; Z66 Do not resuscitate
CPT/HCPCS: 36569; 70450; 71010; 73720; 76937; 80048; 80053; 80202; 81001; 82550; 82552; 82565; 82948; 83605; 83735; 84100; 84484; 85025; 85610; 85730; 87015; 87040; 87070; 87077; 87086; 87102; 87116; 87186; 87205; 87206; 93005; 94640; 94664; A9579; J0131; J0692; J1610; J1642; J1644; J1815; J1940; J3010; J3370; J3480; J7030; J7040; J7050